=== PATIENT | male | born 1960 | race Caucasian/White ===

== ENCOUNTER → 2020-04-27 13:59 | Outpatient (BNVA) | payer MEDICARE, SELFPAY | PROVIDERS: PCP Internal Medicine; Visit Provider Internal Medicine | DX: J44.9 Chronic obstructive pulmonary disease, unspecified (principal); F17.200 Nicotine dependence, unspecified, uncomplicated; R09.02 Hypoxemia | CPT/HCPCS: 99212 ==

== ENCOUNTER → 2020-06-30 13:39 | Outpatient (BNVA) | payer MEDICARE, SELFPAY | PROVIDERS: PCP Internal Medicine; Visit Provider Internal Medicine | DX: J44.9 Chronic obstructive pulmonary disease, unspecified (principal); R09.02 Hypoxemia; Z79.899 Other long term (current) drug therapy; Z99.81 Dependence on supplemental oxygen; Z87.891 Personal history of nicotine dependence | CPT/HCPCS: 99212 ==

== ENCOUNTER → 2020-07-18 13:12 | Outpatient (BNVA) | payer MEDICARE, SELFPAY | PROVIDERS: PCP Internal Medicine; Visit Provider Internal Medicine Cardiovascular Disease | DX: Z13.89 Encounter for screening for other disorder (principal) | CPT/HCPCS: 99212 ==

== ENCOUNTER 2020-08-22 13:13 | Outpatient (REF) | payer MEDICARE, SELFPAY ==
--- NOTE | ~2020-08-22 | CT_ITS ---
EXAMINATION: CT CHEST SCREENING CLINICAL INFORMATION: Lung cancer screening COMPARISON: Previous chest CT scans most recent June 2019 TECHNIQUE: Multidetector volumetric CT imaging of the chest is performed without contrast using low dose technique. Additional 2D coronal and sagittal reformatted images and axial 3D maximum intensity projection (MIP) images are generated on the CT workstation. This CT examination was performed using dose optimization techniques as appropriate, variously including the following: *Automated exposure control *Adjustment of mA and/or kV according to patient size (this includes techniques or standardized protocols for targeted exams where dose is matched to indication/reason for exam; i.e. extremities or head) *Use of iterative reconstruction technique DLP: 96 mGy-cm FINDINGS: LUNGS: There is a 2 mm superior segment right lower lobe nodule axial image 190 series 5 that is stable. The lungs are otherwise clear. No new pulmonary nodule is seen. No endobronchial or endotracheal lesion is seen. MEDIASTINUM: There is a small pericardial effusion that is stable. The heart is upper normal in size. There is coronary artery calcification. The thoracic aorta is normal in caliber. There are small mediastinal lymph nodes that are stable. PLEURA: There is no pleural effusion. No pleural mass or thickening. AXILLA: No lymphadenopathy. UPPER ABDOMEN: Unremarkable OSSEOUS STRUCTURES: There are degenerative changes of the spine. CT/CT lung screening IMPRESSION: Stable small right lower lobe pulmonary nodule. Upper normal-size heart. Coronary artery calcification and small pericardial effusion. ASSESSMENT: Lung-RADS category 2: Benign RECOMMENDATION: Annual low-dose chest CT follow-up recommended.
== END 2020-08-22 13:14 | disposition home or self-care (01) ==
LOC: HO.CT 13:13
PROVIDERS: Visit Provider Surgery
DX: Z12.2 Encounter for screening for malignant neoplasm of respiratory organs (principal); F17.210 Nicotine dependence, cigarettes, uncomplicated
CPT/HCPCS: 71271

== ENCOUNTER → 2020-10-03 13:37 | Outpatient (BNVA) | payer MEDICARE, SELFPAY | PROVIDERS: PCP Internal Medicine; Visit Provider Internal Medicine | DX: J43.1 Panlobular emphysema (principal); F17.200 Nicotine dependence, unspecified, uncomplicated; Z71.6 Tobacco abuse counseling; Z79.899 Other long term (current) drug therapy | CPT/HCPCS: 99212 ==

== ENCOUNTER → 2020-10-12 13:06 | Outpatient (BNVA) | payer MEDICARE, SELFPAY | PROVIDERS: PCP Internal Medicine; Referring Provider Internal Medicine; Visit Provider Internal Medicine Cardiovascular Disease | DX: I50.32 Chronic diastolic (congestive) heart failure (principal); I10 Essential (primary) hypertension | CPT/HCPCS: 93005; 99212 ==

== ENCOUNTER 2020-11-03 13:33 | Outpatient (REF) | payer MEDICARE, SELFPAY ==
--- NOTE | ~2020-11-03 | MR_ITS ---
MR LUMBAR SPINE WITHOUT AND WITH IV CONTRAST CLINICAL INFORMATION: Lumbar stenosis. History of lumbar decompression. COMPARISON: Lumbar spine MRI 11/22/2017. TECHNIQUE: MRI of the lumbar spine was obtained using routine sequences with and without contrast. Intravenous contrast: Gadavist 100 mL FINDINGS: There are 5 nonrib-bearing lumbar-type vertebral bodies. There is grade 1 retrolisthesis of L1 on L2 and L3 on L4, both unchanged. 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 There is enhancement and T2 signal change involving the L4 and L5 vertebral bodies as well as the L4-L5 intervertebral disc with associated with paravertebral soft tissue swelling, highly concerning for the presence of osteomyelitis discitis. Possible early left-sided septic facet arthritis at L4-L5 as well. There are a few very small peripherally enhancing collections within the right and left psoas muscle measuring 9 mm, concerning for small developing abscesses. There is some enhancing epidural phlegmon anteriorly extending into the left and right L4-L5 neural foramina inseparable from the exiting L4 nerve roots. Conus terminates at the L1 level. Enlarged retroperitoneal lymph nodes are nonspecific. L1-L2: There are left hemilaminectomy and microdiscectomy changes. There is a persistent superiorly and inferiorly migrating central disc extrusion that results in unchanged moderate to severe central canal stenosis and mass effect on the traversing nerve roots bilaterally. L2-L3: Left hemilaminectomy and microdiscectomy changes. Diffuse disc osteophyte and bilateral facet arthropathy. Stable moderate central canal stenosis and bilateral subarticular zone stenosis with mass effect on the traversing L3 nerve roots bilaterally. Stable mild to moderate bilateral foraminal stenosis. L3-L4: There is a diffuse annular disc bulge and there is severe bilateral facet arthropathy and ligamentum flavum thickening. Findings in concert result in stable severe central canal stenosis and moderate to severe bilateral foraminal stenosis with mass effect on the exiting L3 nerve roots bilaterally. L4-L5: Diffuse disc osteophyte complex, advanced bilateral facet arthropathy, and enhancing phlegmon result in severe central canal stenosis that is similar to the previous study. Disc osteophyte and facet arthropathy result in worsening severe bilateral foraminal stenosis with mass effect on the exiting L4 nerve roots bilaterally. L5-S1: Diffuse disc osteophyte complex and bilateral facet arthropathy. No central canal stenosis. Mild to moderate bilateral foraminal stenosis. MR/MR lumbar spine wo/w con IMPRESSION: - Imaging findings concerning for the presence of osteomyelitis discitis at L4-L5 with associated paravertebral soft tissue swelling. There are a few very small peripherally enhancing collections within the right and left psoas muscle measuring 9 mm, concerning for small developing paravertebral abscesses. There is some enhancing epidural phlegmon anteriorly extending into the left and right L4-L5 neural foramina inseparable from the exiting L4 nerve roots. Possible early left-sided septic facet arthritis at L4-L5 as well. - At L4-L5, advanced multifactorial degenerative changes and mild enhancing anterior epidural phlegmon result in similar severe central canal stenosis. Worsening severe bilateral foraminal stenosis at this level with compression of the exiting L4 nerve roots bilaterally. - At L3-L4, advanced multifactorial degenerative changes result in stable severe central canal stenosis and moderate to severe bilateral foraminal stenosis with mass effect on the exiting L3 nerve roots bilaterally. - At L2-L3, there are left hemilaminectomy and microdiscectomy changes and spondylitic changes result in stable moderate central canal stenosis and bilateral subarticular zone stenosis with mass effect on the traversing L3 nerve roots bilaterally. Stable mild to moderate bilateral foraminal stenosis. - At L1-L2, there are left hemilaminectomy and microdiscectomy changes and there is a stable appearing superiorly and inferiorly migrating central disc extrusion that results in unchanged moderate to severe central canal stenosis and mass effect on the traversing nerve roots bilaterally. - Enlarged retroperitoneal lymph nodes are nonspecific. Covering provider paged with these findings at 5:25 PM on 11/06/2020.
[2020-11-03 14:10] LABS: MANUAL DIFF FLAG NO
[2020-11-03 14:12] LABS: Basophils Percent Auto 0.5 % (0-2); Eosinophils Absolute Auto 0.1 X10*3/uL (0.0-0.4); Eosinophils Percent Auto 0.7 % (0-4); Hemoglobin 12.3 g/dl (14.0-18.0); Imm Gran Abs Auto 0.03 X10*3/uL (0.00-0.03); Imm Gran Pct Auto 0.4 % (0.0-0.4); Lymphocytes Absolute Auto 0.9 X10*3/uL (1.2-4.9); Lymphocytes Percent Auto 10.7 % (20-40); Mean Corpuscular HGB Conc 30.8 g/dl (31.0-36.0); Mean Corpuscular Hemoglobin 28.1 pg (27.0-33.0); Mean Corpuscular Volume 91.3 fL (80-98); Mean Platelet Volume 10.2 fL (9.4-12.4); Neutrophils Absolute Auto 6.2 X10*3/uL (2.0-8.3); Neutrophils Percent Auto 75.7 % (45-73); Platelet Count 197 X10*3/uL (160-400); Red Blood Count 4.38 X10*6/uL (4.60-5.80); Red Cell Distribution Width 14.6 % (11.0-16.0); White Blood Count 8.2 X10*3/uL (4.8-10.8)
[2020-11-03 14:32] LABS: Anion Gap 13 (12-20); Blood Urea Nitrogen 12 mg/dL (9-16); Calcium 8.8 mg/dL (8.4-10.2); Carbon Dioxide 31 mmol/L (22-29); Chloride 94 mmol/L (96-108); Estimated Glomerular Filt Rate > 60; Potassium 5.1 mmol/L (3.3-5.1); Sodium 133 mmol/L (135-145)
[2020-11-03 14:33] LABS: Estimated Average Glucose 146 mg/dL; Hemoglobin A1c % 6.7 %
[2020-11-03 14:37] LABS: Alanine Aminotransferase < 6 U/L (0-40); Albumin Level 3.2 g/dL (3.5-5.0); Alkaline Phosphatase 62 U/L (39-117); Anion Gap 13 (12-20); Aspartate Amino Transferase 14 U/L (5-37); Blood Urea Nitrogen 12 mg/dL (9-16); Calcium 9.1 mg/dL (8.4-10.2); Carbon Dioxide 32 mmol/L (22-29); Chloride 93 mmol/L (96-108); Cholesterol 105 mg/dL; Estimated Glomerular Filt Rate > 60; Glucose Random 142 mg/dL (60-115); HDL Cholesterol 23 mg/dL; LDL Cholesterol Calculated 67 mg/dl; Potassium 5.1 mmol/L (3.3-5.1); Sodium 133 mmol/L (135-145); Total Protein 6.9 g/dL (6.5-8.0); Triglycerides 77 mg/dL
[2020-11-03 14:39] LABS: B Type Natriuretic Peptide 636 pg/mL (<100)
[2020-11-03 14:53] LABS: Glucose Urine UA NEG (NEG); Leukocyte Esterase Urine NEG (NEG); Nitrite Urine NEG (NEG); PH 6.5 (5.0-8.0); Specific Gravity - Urine 1.015 (1.005-1.025); Urine Blood NEG (NEG); Urine Ketones 5 MG/DL (NEG); Urine Protein 2+ MG/DL (NEG-TRACE)
[2020-11-03 14:54] LABS: Appearance Urine CLOUDY; Color Urine YELLOW
[2020-11-03 14:54] LABS: Free T4 (Free Thyroxine) 1.35 ng/dL (0.71-1.85); Thyroid Stimulating Hormone 0.75 uIU/mL (0.32-4.0)
[2020-11-03 15:08] LABS: Squamous Epithelial Cell Urine 2+ /LPF
[2020-11-03 15:24] LABS: Prostate Specific Antigen Scr 0.11 ng/mL (<0.05-4.0)
[2020-11-03 15:30] LABS: Folate 10.1 ng/mL (> or = 4.0); Vitamin B12 517 pg/mL (200-900)
[2020-11-03 16:38] LABS: Microalbum/Creatinine Ratio Ur 643.9 ug/mg cr
== END 2020-11-03 13:34 | disposition home or self-care (01) ==
LOC: HO.MRI 13:33
PROVIDERS: Internal Medicine; Visit Provider Neurological Surgery
DX: M48.061 Spinal stenosis, lumbar region without neurogenic claudication (principal); I10 Essential (primary) hypertension; E11.65 Type 2 diabetes mellitus with hyperglycemia; N40.0 Benign prostatic hyperplasia without lower urinary tract symptoms; I50.32 Chronic diastolic (congestive) heart failure; E78.00 Pure hypercholesterolemia, unspecified
CPT/HCPCS: 36415; 72158; 80051; 80053; 80061; 81001; 82043; 82310; 82565; 82607; 82746; 83036; 83880; 84153; 84439; 84443; 84520; 85025; A9585

== ENCOUNTER → 2021-01-26 13:35 | Outpatient (BNVA) | payer MEDICARE, SELFPAY | PROVIDERS: PCP Internal Medicine; Visit Provider Internal Medicine | DX: J43.1 Panlobular emphysema (principal); R09.02 Hypoxemia; Z72.0 Tobacco use | CPT/HCPCS: 99212 ==

== ENCOUNTER → 2021-02-01 13:56 | Outpatient (BNVA) | payer MEDICARE, SELFPAY | PROVIDERS: Referring Provider Internal Medicine; Visit Provider Surgery | DX: K21.9 Gastro-esophageal reflux disease without esophagitis (principal); E11.65 Type 2 diabetes mellitus with hyperglycemia; I10 Essential (primary) hypertension; E78.00 Pure hypercholesterolemia, unspecified; Z87.891 Personal history of nicotine dependence; Z88.8 Allergy status to other drugs, medicaments and biological substances; Z79.84 Long term (current) use of oral hypoglycemic drugs; Z79.899 Other long term (current) drug therapy | CPT/HCPCS: 99202 ==

== ENCOUNTER 2021-03-02 13:16 | Outpatient (REF) | payer MEDICARE, SELFPAY ==
[2021-03-02 13:36] LABS: MANUAL DIFF FLAG NO
[2021-03-02 14:23] LABS: Basophils Percent Auto 0.6 % (0-2); Eosinophils Absolute Auto 0.3 X10*3/uL (0.0-0.4); Eosinophils Percent Auto 4.6 % (0-4); Hematocrit 41.7 % (42-52); Hemoglobin 13.2 g/dl (14.0-18.0); Imm Gran Abs Auto 0.02 X10*3/uL (0.00-0.03); Imm Gran Pct Auto 0.3 % (0.0-0.4); Immature Retic Fraction 19.7 % (2.3-13.4); Lymphocytes Absolute Auto 1.5 X10*3/uL (1.2-4.9); Lymphocytes Percent Auto 20.2 % (20-40); Mean Corpuscular HGB Conc 31.7 g/dl (31.0-36.0); Mean Corpuscular Hemoglobin 28.6 pg (27.0-33.0); Mean Corpuscular Volume 90.5 fL (80-98); Mean Platelet Volume 11.3 fL (9.4-12.4); Monocytes Absolute Auto 1.1 X10*3/uL (0.1-1.2); Monocytes Percent Auto 15.6 % (2-11); Neutrophils Absolute Auto 4.2 X10*3/uL (2.0-8.3); Neutrophils Percent Auto 58.7 % (45-73); Platelet Count 180 X10*3/uL (160-400); Red Blood Count 4.61 X10*6/uL (4.60-5.80); Red Cell Distribution Width 15.9 % (11.0-16.0); Reticulocyte Percent 1.7 % (0.5-1.8); Reticulocytes Absolute 0.079 X10*6/uL (0.026-0.095); White Blood Count 7.2 X10*3/uL (4.8-10.8)
[2021-03-02 14:30] LABS: Appearance Urine CLEAR; Color Urine YELLOW; Glucose Urine UA NEG (NEG); Leukocyte Esterase Urine NEG (NEG); Nitrite Urine NEG (NEG); Specific Gravity - Urine <= 1.005 (1.005-1.025); Urine Blood NEG (NEG); Urine Ketones NEG (NEG); Urine Protein NEG (NEG-TRACE)
[2021-03-02 14:41] LABS: INTERNATIONAL NORM RATIO 1.4 (0.9-1.1); Prothrombin Time 16.2 SEC (9.9-13.0)
[2021-03-02 14:50] LABS: Creatinine Urine 26.66 mg/dL
[2021-03-02 14:50] LABS: Alanine Aminotransferase 6 U/L (0-40); Albumin Level 4.1 g/dL (3.5-5.0); Alkaline Phosphatase 54 U/L (39-117); Anion Gap 13 (12-20); Aspartate Amino Transferase 17 U/L (5-37); Bilirubin Total 0.8 mg/dL (0.0-1.0); Blood Urea Nitrogen 15 mg/dL (9-16); Calcium 9.5 mg/dL (8.4-10.2); Carbon Dioxide 33 mmol/L (22-29); Chloride 98 mmol/L (96-108); Estimated Glomerular Filt Rate > 60; Glucose Random 101 mg/dL (60-115); Iron 48 mcg/dL (45-160); Percent Iron Saturation 13 % (15-50); Potassium 4.9 mmol/L (3.3-5.1); Sodium 139 mmol/L (135-145); Total Iron Binding Capacity 375 mcg/dL (228-428); Total Protein 7.6 g/dL (6.5-8.0); Unsaturated Iron Binding 327 ug/dL
[2021-03-02 14:51] LABS: B Type Natriuretic Peptide 569 pg/mL (<100)
[2021-03-02 15:02] LABS: Ferritin 40 ng/mL (20-250); Free T4 (Free Thyroxine) 1.11 ng/dL (0.71-1.85); Thyroid Stimulating Hormone 0.74 uIU/mL (0.32-4.0)
[2021-03-02 15:11] LABS: Mucus Urine 1+ /LPF; RBC Urine 0-2 /HPF (0); Squamous Epithelial Cell Urine TRACE /LPF; WBC Urine 0 /HPF (0-4)
[2021-03-02 15:21] LABS: Folate 9.8 ng/mL (> or = 4.0); Vitamin B12 457 pg/mL (200-900)
== END 2021-03-02 13:17 | disposition home or self-care (01) ==
LOC: HO.LAB 13:16
PROVIDERS: Absent Provider Internal Medicine; PCP Internal Medicine; Visit Provider Internal Medicine
DX: E11.65 Type 2 diabetes mellitus with hyperglycemia (principal); I50.32 Chronic diastolic (congestive) heart failure; N40.0 Benign prostatic hyperplasia without lower urinary tract symptoms; I34.0 Nonrheumatic mitral (valve) insufficiency
CPT/HCPCS: 36415; 80053; 81001; 82607; 82728; 82746; 83540; 83880; 84439; 84443; 85025; 85045; 85610

== ENCOUNTER → 2021-06-07 13:57 | Outpatient (BNVA) | payer MEDICARE, SELFPAY | PROVIDERS: PCP Internal Medicine; Visit Provider Internal Medicine | DX: J43.1 Panlobular emphysema (principal); F17.210 Nicotine dependence, cigarettes, uncomplicated; Z86.711 Personal history of pulmonary embolism | CPT/HCPCS: 99212 ==

== ENCOUNTER 2021-06-13 13:50 | Outpatient (REF) | payer MEDICARE, OTHER, SELFPAY ==
--- NOTE | 2021-06-13 15:36 | PFT_ITS ---
FLOWS: FEV1 52% of predicted at 1.69 L. FVC 65% of predicted at 2.76 L. FEV1 to FVC ratio of 0.61. No bronchodilator response. LUNG VOLUMES: Total lung capacity 94% of predicted at 6.02 L. Residual volume 150% of predicted at 3.16 L. Slow vital capacity 66% of predicted at 2.86 L. Expiratory reserve volume 64% of predicted at 0.77 L. Diffusion capacity is moderately decreased, diffusion capacity adjust to being mildly decreased after correction for alveolar ventilation. IMPRESSION: Moderate obstructive ventilatory defect with no bronchodilator response. Increased residual volume suggests air trapping. Decreased diffusion capacity suggests emphysema. MD TAD Cordon/MODL / [id number]
== END 2021-06-13 13:51 | disposition home or self-care (01) ==
LOC: HO.RESP 13:50
PROVIDERS: PCP Internal Medicine; Visit Provider Internal Medicine
DX: Z01.818 Encounter for other preprocedural examination (principal); R09.02 Hypoxemia; J43.1 Panlobular emphysema; I50.32 Chronic diastolic (congestive) heart failure
CPT/HCPCS: 94060; 94727; 94729

== ENCOUNTER 2021-10-25 12:44 | Outpatient (RCR) | payer MEDICARE, SELFPAY | END 2022-01-19 08:44 | disposition home or self-care (01) | LOC: HO.WCC 12:44 | PROVIDERS: PCP Internal Medicine; Visit Provider Surgery | DX: E11.622 Type 2 diabetes mellitus with other skin ulcer (principal); L97.815 Non-pressure chronic ulcer of other part of right lower leg with muscle involvement without evidence of necrosis; E11.51 Type 2 diabetes mellitus with diabetic peripheral angiopathy without gangrene; E11.42 Type 2 diabetes mellitus with diabetic polyneuropathy; F17.200 Nicotine dependence, unspecified, uncomplicated; Z79.01 Long term (current) use of anticoagulants; Z86.718 Personal history of other venous thrombosis and embolism | CPT/HCPCS: 11042; 11043; 11045; 11046; 97597; 99212 ==

== ENCOUNTER 2022-02-27 14:03 | Outpatient (REF) | payer MEDICARE, SELFPAY ==
[2022-02-27 16:31] LABS: MANUAL DIFF FLAG NO
[2022-02-27 16:35] LABS: Basophils Percent Auto 0.5 % (0-2); Eosinophils Absolute Auto 0.4 X10*3/uL (0.0-0.4); Eosinophils Percent Auto 4.4 % (0-4); Hematocrit 32.4 % (42.0-52.0); Hemoglobin 9.5 g/dl (14.0-18.0); Imm Gran Abs Auto 0.02 X10*3/uL (0.00-0.03); Imm Gran Pct Auto 0.2 % (0.0-0.4); Lymphocytes Absolute Auto 1.6 X10*3/uL (1.2-4.9); Lymphocytes Percent Auto 19.9 % (20-40); Mean Corpuscular HGB Conc 29.3 g/dl (31.0-36.0); Mean Corpuscular Hemoglobin 26.2 pg (27.0-33.0); Mean Corpuscular Volume 89.5 fL (80.0-98.0); Mean Platelet Volume 11.1 fL (9.4-12.4); Monocytes Absolute Auto 1.3 X10*3/uL (0.1-1.2); Monocytes Percent Auto 16.3 % (2-11); NRBC Pct Auto 0.2 /100WBC (0.0-0.2); Neutrophils Absolute Auto 4.8 x10*3/uL (2.0-8.3); Neutrophils Percent Auto 58.7 % (45-73); Platelet Count 238 X10*3/uL (160-400); Red Blood Count 3.62 X10*6/uL (4.60-5.80); Red Cell Distribution Width 18.1 % (11.0-16.0); White Blood Count 8.1 X10*3/uL (4.8-10.8)
[2022-02-27 16:43] LABS: Estimated Average Glucose 128 mg/dL; Hemoglobin A1c % 6.1 %
[2022-02-27 16:47] LABS: Alanine Aminotransferase 51 U/L (0-40); Albumin Level 3.6 g/dL (3.5-5.0); Alkaline Phosphatase 60 U/L (39-117); Anion Gap 16 (12-20); Aspartate Amino Transferase 137 U/L (5-37); Bilirubin Direct 0.9 mg/dL (0.0-0.5); Bilirubin Total 1.2 mg/dL (0.0-1.0); Blood Urea Nitrogen 30 mg/dL (9-16); Calcium 8.9 mg/dL (8.4-10.2); Carbon Dioxide 27 mmol/L (22-29); Chloride 104 mmol/L (96-108); Cholesterol 114 mg/dL; Estimated Glomerular Filt Rate > 60; Glucose Random 115 mg/dL (60-115); HDL Cholesterol 22 mg/dL; LDL Cholesterol Calculated 81 mg/dl; Potassium 5.4 mmol/L (3.3-5.1); Sodium 142 mmol/L (135-145); Total Protein 7.7 g/dL (6.5-8.0); Triglycerides 56 mg/dL
[2022-02-27 16:56] LABS: B Type Natriuretic Peptide 1057 pg/mL (<100)
[2022-02-27 17:04] LABS: Creatinine Urine 220.48 mg/dL
[2022-02-27 17:06] LABS: Thyroid Stimulating Hormone 3.94 uIU/mL (0.32-4.0)
[2022-02-27 17:14] LABS: Free T4 (Free Thyroxine) 1.03 ng/dL (0.71-1.85); Prostate Specific Antigen Scr 0.15 ng/mL (<0.05-4.0)
[2022-02-27 17:17] LABS: Folate 13.9 ng/mL (> or = 4.0); Vitamin B12 1586 pg/mL (200-900)
[2022-02-27 17:29] LABS: Microalbum/Creatinine Ratio Ur 1159.2 ug/mg cr
== END 2022-02-27 14:04 | disposition home or self-care (01) ==
LOC: HO.HMGCLDS 14:03
PROVIDERS: Absent Provider Nurse Practitioner Family; PCP Internal Medicine; Visit Provider Internal Medicine
DX: Z12.5 Encounter for screening for malignant neoplasm of prostate (principal); K74.60 Unspecified cirrhosis of liver; E78.00 Pure hypercholesterolemia, unspecified; E11.65 Type 2 diabetes mellitus with hyperglycemia; K21.9 Gastro-esophageal reflux disease without esophagitis; I50.32 Chronic diastolic (congestive) heart failure
CPT/HCPCS: 36415; 80053; 80061; 80076; 82043; 82248; 82607; 82746; 83036; 83880; 84153; 84439; 84443; 85025

== ENCOUNTER 2022-02-28 11:29 | Outpatient (REF) | payer MEDICARE, SELFPAY ==
[2022-02-28 12:18] LABS: Ammonia 55 umol/L (13-55)
== END 2022-02-28 11:30 | disposition home or self-care (01) ==
LOC: HO.LAB 11:29
PROVIDERS: Nurse Practitioner Family; PCP Internal Medicine; Visit Provider Internal Medicine
DX: K74.60 Unspecified cirrhosis of liver (principal)
CPT/HCPCS: 36415; 82140

== ENCOUNTER 2022-02-28 15:25 | Inpatient (IN) | payer MEDICARE, OTHER, SELFPAY ==
[2022-02-28] VITALS (11 sets, daily range): BP systolic 92–114; BP diastolic 60–84; PULSE 104–137; RESP 15–24; TEMP 36.1–36.6; O2SAT 87–100; BMI 37.2
--- NOTE | ~2022-02-28 | CT_ITS ---
EXAMINATION: CT ANGIOGRAM OF THE CHEST WITH AND WITHOUT CONTRAST (CT PULMONARY ANGIOGRAM FOR PE) CT ABDOMEN AND PELVIS WITH CONTRAST CLINICAL INFORMATION: Reason for Exam sob, hypoxia abdominal distention and weakness COMPARISON: Chest CT 08/22/2020, CT abdomen and pelvis 02/13/2008 TECHNIQUE: Prior to contrast administration, noncontrast localization images were obtained. Subsequently, multidetector volumetric imaging was performed from the thoracic inlet to the pubic symphysis following the administration of 85 mL Omnipaque 350 intravenous contrast. This was followed by multidetector acquisition of the abdomen and pelvis. No contrast reaction reported Sagittal, coronal, and MIP oblique sagittal reformatted images were obtained on the CT workstation, uploaded to PACS, and reviewed. This CT examination was performed using dose optimization techniques as appropriate, variously including the following: *Automated exposure control *Adjustment of mA and/or kV according to patient size (this includes techniques or standardized protocols for targeted exams where dose is matched to indication/reason for exam; i.e. extremities or head) *Use of iterative reconstruction technique Total exam dose-length product 606 mGy-cm FINDINGS: CHEST: Quality of study/contrast bolus: Suboptimal. Pulmonary arteries: No central pulmonary embolus. Central pulmonary trunk is dilated measuring approximate 3.4 cm in diameter. Limited assessment for segmental pulmonary emboli due to suboptimal contrast opacification of distal branches and motion artifact. No large proximal segmental pulmonary embolus. Thoracic aorta: No aneurysm or dissection. Lungs: Assessment somewhat limited due to respiratory motion artifact. Mild bibasilar independent atelectasis bilaterally. No airspace consolidation. No appreciable pulmonary nodule. Airways:Central airways appear clear. Pleura and pericardium: Small to moderate-sized left pleural effusion. No right pleural effusion. Small to moderate-sized pericardial effusion. Heart and vascular structures: Cardiomegaly with biatrial enlargement. Mild right coronary calcifications. Lymph nodes: No mediastinal, hilar, or axillary lymphadenopathy. Chest Wall: No chest wall mass. ABDOMEN/PELVIS: Liver: Reflux of contrast into the distended upper abdominal IVC and hepatic veins suggesting elevated right heart pressure/right heart dysfunction. Mild hepatic hypoattenuation is seen mild steatosis. Approximately 1.9 cm hypodense lesion in the inferior right liver lobe, possibly a cyst, but indeterminate. No other liver lesion. Plate Gallbladder and bile ducts:No calcified gallstones or gross gallbladder wall thickening. No biliary ductal dilation. Pancreas: No pancreatic lesion, ductal dilation, or peripancreatic inflammatory change. Spleen: Normal size. No splenic lesion. Adrenal Glands: Slightly thickened appearing left adrenal gland. Normal right adrenal gland. Kidneys and Ureters: Symmetric nephrograms. No hydronephrosis. Subcentimeter hypodense right lower pole renal lesion and left upper pole renal lesion, too small to characterize, likely small cysts. Vasculature:Normal caliber abdominal aorta. Moderate vascular calcifications. Distended IVC. Lymph nodes:Subcentimeter retroperitoneal periaortic lymph nodes, not enlarged by size criteria. Prominent left inguinal lymph node measuring up to 1.2 cm in short axis, nonspecific. Gastrointestinal Tract: No dilated bowel loops or bowel wall thickening. The appendix is unremarkable. Peritoneum:Small volume ascites. No intra-abdominal free air. Abdominal wall:Diffuse body wall edema/anasarca. Mild rectus diastases. Right-sided rectus sheath hematoma measuring approximately 8.4 x 7 x 9.7 cm in size. Bladder: Decompressed with Huizar catheter in place. Pelvic Viscera: Unremarkable. Bones: No acute fracture or suspicious osseous lesion. Multilevel degenerative disc disease throughout the thoracolumbar spine. Vertebral body hemangiomas at L3 and T12. CT/CT abdomen pelvis w IV con IMPRESSION: 1. No central pulmonary embolus or large segmental pulmonary embolus. Assessment for segmental pulmonary emboli is significantly limited due to motion artifact and suboptimal contrast opacification of more distal branches. 2. Small to moderate-sized left pleural effusion and mild atelectasis bilaterally. 3. Small to moderate-sized pericardial effusion. 4. Cardiomegaly with atrial enlargement. Reflux of contrast into the distended IVC and hepatic veins suggesting elevated right heart pressure/right heart dysfunction. Correlate clinically. 5. Mild hepatic steatosis. 6. Right rectus sheath hematoma measuring 8.4 x 7 x 9.7 cm in size. 7. Diffuse body wall edema/anasarca and small volume ascites. 8. 1.9 cm hypodense lesion in the inferior right liver lobe, indeterminate on this exam. VTE: Negative, with significant limitation as above
--- NOTE | ~2022-02-28 | XR_ITS ---
EXAMINATION: XR CHEST CLINICAL INFORMATION: Shortness of breath COMPARISON: Comparison is made to evaluation manager film from CT dated 08/22/2020 TECHNIQUE: Frontal view of the chest was obtained. FINDINGS: This exam is limited from technique. I cannot exclude areas of infiltrate in the lungs but this appearance may be partially due to the radiographic technique. The cardiac silhouette is prominent. Again this could be due to technique. This is an AP study. No obvious failure. XR/XR chest 1V IMPRESSION: Limited exam due to technique. Areas of infiltrate cannot be excluded though appearance may be due to the radiographic technique. Recommend PA and lateral films when the patient is able.
--- NOTE | ~2022-02-28 | CT_ITS ---
EXAMINATION: CT HEAD WITHOUT CONTRAST CLINICAL INFORMATION: slow to response ? ams, weakness, hypoxia COMPARISON: CT head 09/03/2018 TECHNIQUE: Contiguous axial imaging was performed from the skull base to vertex without intravenous administration of contrast. Coronal and sagittal reformatted images are performed at the CT scanner. [This CT examination was performed using dose optimization techniques as appropriate, variously including the following: *Automated exposure control *Adjustment of mA and/or kV according to patient size (this includes techniques or standardized protocols for targeted exams where dose is matched to indication/reason for exam; i.e. extremities or head) *Use of iterative reconstruction technique] DLP: 746 mGy-cm. FINDINGS: There is no evidence of acute intracranial hemorrhage or territorial infarction. No abnormal mass-effect or midline shift is seen. Owens to white matter differentiation is well preserved. No extra-axial fluid collections are identified. The ventricles are normal in size. There is no abnormal attenuation within the brain parenchyma. There is no osseous abnormality. The mastoid air cells and visualized portions of the paranasal sinuses are well-aerated. CT/CT head/brain wo IV con IMPRESSION: No acute intracranial pathology.
--- NOTE | 2022-02-28 14:27 | ECG_ITS ---
Test Reason : SOB Blood Pressure : / mmHG Vent. Rate : 132 BPM Atrial Rate : 000 BPM P-R Int : 000 ms QRS Dur : 134 ms QT Int : 326 ms P-R-T Axes : 000 080 -06 degrees QTc Int : 483 ms Wide QRS tachycardia Right bundle branch block Septal infarct , age undetermined Abnormal ECG When compared with ECG of 28-FEB-2022 17:23, Wide QRS tachycardia has replaced Sinus tachycardia Referred By: Tae Delatorre Electronically Signed By:MARCEL RIZVI
--- NOTE | 2022-02-28 15:40 | ECG_ITS ---
Test Reason : SOB Blood Pressure : / mmHG Vent. Rate : 131 BPM Atrial Rate : 131 BPM P-R Int : 152 ms QRS Dur : 132 ms QT Int : 326 ms P-R-T Axes : 000 088 -11 degrees QTc Int : 481 ms Sinus tachycardia Right bundle branch block Septal infarct , age undetermined Abnormal ECG When compared with ECG of 31-AUG-2018 08:17, Septal infarct is now Present Referred By: Tae Delatorre Electronically Signed By:MARCEL RIZVI
--- NOTE | 2022-02-28 15:42 | ED_ITS ---
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 Patient tells me he is feeling short of breath both at rest and with exertion. Patient does not use oxygen at home. According to EMS they found him in the mid 80s upon arrival therefore they placed him on 2 L nasal cannula with improvement in oxygen saturation to mid 90s. Patient appears tired, and slow to respond to questions. He denies fevers, chills, chest pain, nausea, vomiting, abdominal pain. Upon chart review patient noted to be anticoagulated on apixaban Related Data Home Medications Medication Instructions Recorded Confirmed albuterol sulfate 90 mcg/actuation 2 puff inhalation Q6H PRN 02/26/20 02/28/22 aerosol inhaler (ProAir HFA) Shortness Of Breath cholecalciferol (vitamin D3) 25 25 mcg PO DAILY 02/26/20 02/28/22 mcg (1,000 unit) tablet ferrous sulfate 325 mg (65 mg 325 mg PO DAILY 10/31/21 02/28/22 iron) tablet furosemide 40 mg tablet (Lasix) 80 mg PO DAILY 02/23/22 02/28/22 metoprolol tartrate 25 mg tablet 37.5 mg PO BID 02/23/22 02/28/22 lisinopril 2.5 mg tablet 1 tab PO DAILY 02/28/22 02/28/22 pantoprazole 40 mg tablet,delayed 1 tab PO DAILY 02/28/22 02/28/22 release Previous Rx's Medication Instructions Recorded budesonide-formoterol HFA 160 2 puff inhalation BID #3 ea 05/26/20 mcg-4.5 mcg/actuation aerosol inhaler (Symbicort) michael.stocking,knee,reg,xlrg #12 ea 09/27/20 apixaban 5 mg tablet (Eliquis) 5 mg PO BID #180 tabs 10/21/20 metformin 850 mg tablet 850 mg PO BID #180 tabs 04/14/21 fluticasone propionate 50 1 spray intranasal DAILY 30 days 07/21/21 mcg/actuation nasal #16 grams spray,suspension (Flonase Allergy Relief) duloxetine 60 mg capsule,delayed 60 mg PO DAILY #90 caps 08/15/21 release gabapentin 600 mg tablet 600 mg PO BID #180 tabs 08/15/21 rosuvastatin 5 mg tablet 5 mg PO DAILY #90 tabs 08/15/21 DIABETIC SHOES #1 ea 12/08/21 tamsulosin 0.4 mg capsule 0.4 mg PO DAILY 90 days #90 caps 12/22/21 oxycodone-acetaminophen 5 mg-325 1 tab PO Q6H PRN pain #120 tabs 02/07/22 mg tablet (Percocet) lactulose 10 gram/15 mL oral 20 g (30 mL) PO TID PRN laxative 02/23/22 solution effect #946 mL nystatin 100,000 unit/gram topical 1 appl topical TID #60 grams 02/23/22 powder (Nystop) Allergies Allergy/AdvReac Type Severity Reaction Status Date / Time amlodipine Allergy Mild Unknown Verified 02/23/22 14:25 atorvastatin [Lipitor] Allergy Mild Unknown Verified 02/23/22 14:25 simvastatin Allergy Unknown cannot Verified 02/23/22 14:25 take due to amlodipine piperacillin [From ZOSYN] AdvReac Mild RASH Verified 02/23/22 14:25 tazobactam [From ZOSYN] AdvReac Mild RASH Verified 02/23/22 14:25 Review of Systems Review of Systems: Constitutional : No Weight loss, No Fever, No Chills, + Fatigue, + Malaise ENT/Mouth : No sore throat, No Rhinorrhea Eyes: No Eye Pain, No Swelling, No Redness Cardiovascular : No Chest Pain, + SOB, No Dyspnea on Exertion, No Orthopnea, No Edema, No Palpitations Respiratory : No Cough, No Sputum, No Wheezing Gastrointestinal : No Nausea, No Vomiting, No Diarrhea, No Constipation, No abdominal Pain, No Hematochezia, No Melena Genitourinary : No Dysuria, No Urinary Frequency, No Hematuria, Musculoskeletal : No joint pain, No Myalgias, No Joint Swelling Skin : No Skin Lesions, No rash Neuro : + Weakness, No Numbness, No Dizziness, No Headache Psych : No Anxiety/Panic, No Depression All other systems reviewed and are negative Yes all other systems are reviewed and are negative [facility], [facility] Past Medical History Attestation statement: The following information was validated with the patient. Source: old records reviewed and nursing notes reviewed Medical History BPH (benign prostatic hyperplasia) Carpal tunnel syndrome Chronic low back pain Cirrhosis Colon cancer screening Congestive heart failure COPD (chronic obstructive pulmonary disease) COVID-19 vaccine series completed Edema of both feet GERD (gastroesophageal reflux disease) History of pulmonary embolism History of torsion of testis Hypercholesterolemia Hypertension Hypoxemia Lung density on x-ray Peripheral vascular disease Tobacco abuse Type 2 diabetes mellitus with hyperglycemia Surgical History H/O colonoscopy History of excision of pilonidal cyst History of lumbar discectomy Hx of excision of mass Torsion, testicular Family History Family History Father Diabetes Hypertension CVD (cardiovascular disease) Mother Acute CVA (cerebrovascular accident) Stroke Sister Pulmonary embolism Sister Substance abuse Social History Social History Housing: Apartment Alcohol intake: never Patient Tobacco Use Status: Current someday Tobacco user Tobacco use type: Cigarette Cigarettes Per Day: 3 e-Cigarette/Vaping Use: Never Used Second Hand Smoke Exposure: No Advance Directives: No Advance Directives Information Provided: No service: No Current occupational status: disabled Cognitive needs: Yes Hearing needs: No Vision needs: No Physical Exam ED Vital Signs: Vital Signs - 24 hr 02/28/22 15:36 02/28/22 16:41 02/28/22 17:30 Temperature 98 F 97.9 F Pulse Rate 119 H 130 H Respiratory Rate 16 20 24 H Blood Pressure 109/80 114/84 Pulse Oximetry 98 88 L Oxygen Delivery Method Room Air Room Air Oxygen Flow Rate 4 Fraction of Inspired Oxygen 02/28/22 19:38 02/28/22 19:41 02/28/22 19:47 Temperature 97.0 F Pulse Rate 117 H 108 H Respiratory Rate 23 H 23 H 15 Blood Pressure 111/77 Pulse Oximetry Oxygen Delivery Method Oxygen Flow Rate Fraction of Inspired Oxygen 02/28/22 20:16 02/28/22 20:57 Temperature Pulse Rate Respiratory Rate 17 Blood Pressure Pulse Oximetry 100 Oxygen Delivery Method BiPAP Oxygen Flow Rate Fraction of Inspired Oxygen 35 BMI result Body Mass Index 37.2 Appearance: Alert.? Oriented X3.? No acute distress.? Patient is slow to respond to questions. Head: Normocephalic, atraumatic, no step-offs or deformities Eyes: Pupils equal, round and reactive to light.? ENT: Pharynx normal.? Neck: Normal inspection.? Neck supple.? CVS: Normal heart rate and rhythm.? Pulses normal.?+ systolic murmur Respiratory: No respiratory distress.? Breath sounds diminished bilaterally w/ wheezing throughout.? Abdomen: Soft and nontender.? However distended with normoactive bowel sounds. Skin: Skin warm and dry.? Normal skin color.? Normal skin turgor.? Extremities: 4+ nonpitting edema to bilateral lower extremities. Anasarca noted throughout? No calf ttp. Global weakness Neuro: Oriented X 3.? No motor deficit.? No sensory deficit. Patient arousable to verbal stimuli Course Reevaluation(s) Reevaluation #1: Patient now hypoxic at 87 88% on 4 L, will be placed on high-flow, respiratory called to the bedside an ABG will be obtained. Patient difficult stick therefore laboratory study still pending. Patient's pressure initially soft, at this time will obtain blood cultures and a lactic acid. According to nurse jay jay johnson reported that patient has been having periods of unresponsiveness at home, lethargy and somnolence. Patient becoming more and more lethargic however still controlling his own airway and reseponsive. Will continue to monitor informed Dr. Britton on this case. Time: 16:50 Reevaluation #2: Blood gas showing a resp acidosis PH 7.24 PCO2 63 PO2 331 HCO3 27, at this time patient will be placed on BiPAP. Time: 17:32 Reevaluation #3: Patient's CBC appears to be at baseline, chemistry with potassium noted to be elevated 6.3, no EKG changes however will give Lokelma 10 mg, insulin, D50, sodium bicarb, calcium gluconate, albuterol neb. BNP elevated 881 lasix ordered. Patient noted to have a slight SISI however will hold fluids due to patient's fluid overload status. Transaminases noted to be markedly elevated when compared to yesterday, CT of the abdomen and pelvis pending at this time. Patient's lactic acid noted to be 2.8 likely secondary to hypoxic respiratory failure, unlikely from sepsis. Urine pending, CT of head, abd and pelvis pendin carmelo Tollerating bipap well. Time: 18:13 Additional Reevaluation(s): Urine with infection ceftriaxone ordered. 2045 Spoke with nursing supervisor grounds who tells me that we do not have any beds in the intensive care unit. Patient is tolerating BiPAP well will trial him on high- flow to see if he tolerates that. Head CT with no acute findings. Pending CT of the chest, abdomen and pelvis. 2056 Lacic acid still elevated likley secondary to resp faliure 2119 CT of the head with no acute findings. CTA with no central pulmonary emboli or large segmental pulmonary embolus. Small to moderate size left pleural effusion and mild atelectasis bilaterally. Small to moderate size pericardial effusion. Cardiomegaly with arterial enlargement. Mild hepatic steatosis, right rectus sheath hematoma measuring 8.4 x 7 x 9.7 cm in size, I did ask patient if he fell he now tells me he thinks he fell however he does not recall when. 2124 Dr. Chen surgery recommends stopping apixaban due to hematoma, no other management needed at this time 2126 Tollerating high flow @ 30% 2150 Patient will be admitted to the hospitalist team for further intervention and tx. Dr. Sandoval Medical Decision Making [facility] Narrative Medical decision making narrative: 1546 61-year-old male presenting with weakness, malaise, fatigue and shortness of breath worsening over the past few weeks. Was sent in by his primary care provider. To note patient poor historian Physical exam significant for patient slow to respond to questions, global wea kness, diminished breath sounds throughout with wheezing, abdomen soft, nontender slightly distended. And 4+ nonpitting edema to bilateral lower extremities. Concerns for CHF. Will rule out PE, ACS, hepatic encephalopathy, cirrhosis pneumonia. I do not suspect COPD exacerbation. Unlikey DVT or arterial occlusion. Plan labs, urine, EKG, troponin, D-dimer, chest x-ray. Upon chart review it is noted that on 02/27/2022 patient was noted to have an elevated potassium at 5.4, patient was noted to have an ammonia of 55, his LFTs slightly higher than baseline. Patient was also noted to have a BNP of a 1057. B12 elevated at 1586 Will wait for today's laboratory studies prior to starting treatment as patient is currently stable. Medical Records Medical records reviewed: Yes I reviewed the patient's medical records. Lab Data Lab results reviewed: Yes I reviewed the patient's lab results. Result diagrams: 02/28/22 17:18 02/28/22 17:13 Labs: Lab Results 02/28/22 02/28/22 02/28/22 Range/Units 17:08 17:12 17:13 WBC (4.8-10.8) X10*3/uL RBC (4.60-5.80) X10*6/uL Hgb (14.0-18.0) g/dl Hct (42.0-52.0) % MCV (80.0-98.0) fL MCH (27.0-33.0) pg MCHC (31.0-36.0) g/dl RDW (11.0-16.0) % Plt Count (160-400) X10*3/uL MPV (9.4-12.4) fL Immature Gran % (Auto) (0.0-0.4) % Neut % (Auto) (45-73) % Lymph % (Auto) (20-40) % [place] % (Auto) (2-11) % Eos % (Auto) (0-4) % Baso % (Auto) (0-2) % Lymph # (Auto) (1.2-4.9) X10*3/uL [place] # (Auto) (0.1-1.2) X10*3/uL Eos # (Auto) (0.0-0.4) X10*3/uL Baso # (Auto) (0.0-0.2) X10*3/uL Abs Immat Gran (auto) (0.00-0.03) X10*3/uL Absolute Neuts (auto) (2.0-8.3) x10*3/uL Absolute Nucleated RBC (0.0-0.012) X10*3/uL Nucleated RBC % (auto) (0.0-0.2) /100WBC D-Dimer High Sensitivty 1313 NG/ML O2 Saturation 99.0 % ABG pH at Pt Temp 7.24 L (7.35-7.45) ABG pCO2 at Pt Temp 63 H* (32-45) mmHg ABG pO2 at Pt Temp 331 H (83-108) mmHg ABG HCO3 27 H (22-26) mmol/L ABG Base Excess (Actual) -0.6 mmol/L Sodium (135-145) mmol/L Potassium (3.3-5.1) mmol/L Chloride (96-108) mmol/L Carbon Dioxide (22-29) mmol/L Anion Gap (12-20) BUN (9-16) mg/dL Creatinine (0.5-1.4) mg/dL Estim Creat Clear Calc Estimated GFR Random Glucose (60-115) mg/dL Lactic Acid (0.5-2.0) mmol/L Lactic Acid F/U @ 2Hr (0.5-2.0) mmol/L Calcium (8.4-10.2) mg/dL Magnesium (1.6-2.6) mg/dL Total Bilirubin (0.0-1.0) mg/dL AST (5-37) U/L ALT (0-40) U/L Alkaline Phosphatase (39-117) U/L Ammonia (13-55) umol/L Troponin I High Sens (<3.5-35.0) ng/L B-Natriuretic Peptide (<100) pg/mL Total Protein (6.5-8.0) g/dL Albumin (3.5-5.0) g/dL Urine Color Urine Appearance Urine pH (5.0-9.0) Ur Specific [place] (1.005-1.025) Urine Protein (Neg-Trace) mg/dL Urine Glucose (UA) (Negative) mg/dL Urine Ketones (Negative) mg/dL Urine Blood (Negative) Urine Nitrite (Negative) Ur Leukocyte Esterase (Negative) Urine RBC (0-2) /HPF Urine WBC (0-5) /HPF Ur Squamous Epith Cells (0-2) /HPF Urine Bacteria (None Seen) Hyaline Casts (0-2) /LPF Granular Casts Urine Opiates Screen (Not Detect) Urine Fentanyl Screen (Not Detect) Ur Barbiturates Screen (Not Detect) Ur Phencyclidine Scrn (Not Detect) Ur Amphetamines Screen (Not Detect) U Benzodiazepines Scrn (Not Detect) Urine Cocaine Screen (Not Detect) U Marijuana (THC) Screen (Not Detect) COVID-19 (EWA) Negative (Negative) COVID-19 Clin Com See Note 02/28/22 02/28/22 02/28/22 Range/Units 17:13 17:13 17:13 WBC (4.8-10.8) X10*3/uL RBC (4.60-5.80) X10*6/uL Hgb (14.0-18.0) g/dl Hct (42.0-52.0) % MCV (80.0-98.0) fL MCH (27.0-33.0) pg MCHC (31.0-36.0) g/dl RDW (11.0-16.0) % Plt Count (160-400) X10*3/uL MPV (9.4-12.4) fL Immature Gran % (Auto) (0.0-0.4) % Neut % (Auto) (45-73) % Lymph % (Auto) (20-40) % [place] % (Auto) (2-11) % Eos % (Auto) (0-4) % Baso % (Auto) (0-2) % Lymph # (Auto) (1.2-4.9) X10*3/uL [place] # (Auto) (0.1-1.2) X10*3/uL Eos # (Auto) (0.0-0.4) X10*3/uL Baso # (Auto) (0.0-0.2) X10*3/uL Abs Immat Gran (auto) (0.00-0.03) X10*3/uL Absolute Neuts (auto) (2.0-8.3) x10*3/uL Absolute Nucleated RBC (0.0-0.012) X10*3/uL Nucleated RBC % (auto) (0.0-0.2) /100WBC D-Dimer High Sensitivty NG/ML O2 Saturation % ABG pH at Pt Temp (7.35-7.45) ABG pCO2 at Pt Temp (32-45) mmHg ABG pO2 at Pt Temp (83-108) mmHg ABG HCO3 (22-26) mmol/L ABG Base Excess (Actual) mmol/L Sodium 142 (135-145) mmol/L Potassium 6.3 H* (3.3-5.1) mmol/L Chloride 104 (96-108) mmol/L Carbon Dioxide 28 (22-29) mmol/L Anion Gap 16 (12-20) BUN 38 H (9-16) mg/dL Creatinine 1.45 H (0.5-1.4) mg/dL Estim Creat Clear Calc 64.6 Estimated GFR 49 Random Glucose 118 H (60-115) mg/dL Lactic Acid (0.5-2.0) mmol/L Lactic Acid F/U @ 2Hr (0.5-2.0) mmol/L Calcium 9.0 (8.4-10.2) mg/dL Magnesium 1.6 (1.6-2.6) mg/dL Total Bilirubin 1.6 H (0.0-1.0) mg/dL AST 348 H (5-37) U/L ALT 113 H (0-40) U/L Alkaline Phosphatase 65 (39-117) U/L Ammonia 30 (13-55) umol/L Troponin I High Sens 15.5 (<3.5-35.0) ng/L B-Natriuretic Peptide 881 H (<100) pg/mL Total Protein 8.0 (6.5-8.0) g/dL Albumin 3.7 (3.5-5.0) g/dL Urine Color Urine Appearance Urine pH (5.0-9.0) Ur Specific [place] (1.005-1.025) Urine Protein (Neg-Trace) mg/dL Urine Glucose (UA) (Negative) mg/dL Urine Ketones (Negative) mg/dL Urine Blood (Negative) Urine Nitrite (Negative) Ur Leukocyte Esterase (Negative) Urine RBC (0-2) /HPF Urine WBC (0-5) /HPF Ur Squamous Epith Cells (0-2) /HPF Urine Bacteria (None Seen) Hyaline Casts (0-2) /LPF Granular Casts Urine Opiates Screen (Not Detect) Urine Fentanyl Screen (Not Detect) Ur Barbiturates Screen (Not Detect) Ur Phencyclidine Scrn (Not Detect) Ur Amphetamines Screen (Not Detect) U Benzodiazepines Scrn (Not Detect) Urine Cocaine Screen (Not Detect) U Marijuana (THC) Screen (Not Detect) COVID-19 (EWA) (Negative) COVID-19 Clin Com 02/28/22 02/28/22 02/28/22 Range/Units 17:13 17:18 17:30 WBC 7.6 (4.8-10.8) X10*3/uL RBC 3.69 L (4.60-5.80) X10*6/uL Hgb 9.7 L (14.0-18.0) g/dl Hct 33.6 L (42.0-52.0) % MCV 91.1 (80.0-98.0) fL MCH 26.3 L (27.0-33.0) pg MCHC 28.9 L (31.0-36.0) g/dl RDW 18.2 H (11.0-16.0) % Plt Count 196 (160-400) X10*3/uL MPV 10.8 (9.4-12.4) fL Immature Gran % (Auto) 0.4 (0.0-0.4) % Neut % (Auto) 68.8 (45-73) % Lymph % (Auto) 12.1 L (20-40) % [place] % (Auto) 16.6 H (2-11) % Eos % (Auto) 1.8 (0-4) % Baso % (Auto) 0.3 (0-2) % Lymph # (Auto) 0.9 L (1.2-4.9) X10*3/uL [place] # (Auto) 1.3 H (0.1-1.2) X10*3/uL Eos # (Auto) 0.1 (0.0-0.4) X10*3/uL Baso # (Auto) 0.0 (0.0-0.2) X10*3/uL Abs Immat Gran (auto) 0.03 (0.00-0.03) X10*3/uL Absolute Neuts (auto) 5.2 (2.0-8.3) x10*3/uL Absolute Nucleated RBC 0.030 H (0.0-0.012) X10*3/uL Nucleated RBC % (auto) 0.4 H (0.0-0.2) /100WBC D-Dimer High Sensitivty NG/ML O2 Saturation % ABG pH at Pt Temp (7.35-7.45) ABG pCO2 at Pt Temp (32-45) mmHg ABG pO2 at Pt Temp (83-108) mmHg ABG HCO3 (22-26) mmol/L ABG Base Excess (Actual) mmol/L Sodium (135-145) mmol/L Potassium (3.3-5.1) mmol/L Chloride (96-108) mmol/L Carbon Dioxide (22-29) mmol/L Anion Gap (12-20) BUN (9-16) mg/dL Creatinine (0.5-1.4) mg/dL Estim Creat Clear Calc Estimated GFR Random Glucose (60-115) mg/dL Lactic Acid 2.8 H* (0.5-2.0) mmol/L Lactic Acid F/U @ 2Hr (0.5-2.0) mmol/L Calcium (8.4-10.2) mg/dL Magnesium (1.6-2.6) mg/dL Total Bilirubin (0.0-1.0) mg/dL AST (5-37) U/L ALT (0-40) U/L Alkaline Phosphatase (39-117) U/L Ammonia (13-55) umol/L Troponin I High Sens (<3.5-35.0) ng/L B-Natriuretic Peptide (<100) pg/mL Total Protein (6.5-8.0) g/dL Albumin (3.5-5.0) g/dL Urine Color Dark Yellow Urine Appearance Turbid Urine pH 5.5 (5.0-9.0) Ur Specific [place] 1.025 (1.005-1.025) Urine Protein 300 (3+) H (Neg-Trace) mg/dL Urine Glucose (UA) Negative (Negative) mg/dL Urine Ketones Trace (Negative) mg/dL Urine Blood Large (3+) H (Negative) Urine Nitrite Negative (Negative) Ur Leukocyte Esterase Moderate (2+) H (Negative) Urine RBC >20 H (0-2) /HPF Urine WBC >50 H (0-5) /HPF Ur Squamous Epith Cells 3-5 (0-2) /HPF Urine Bacteria 4+ (None Seen) Hyaline Casts 11-20 (0-2) /LPF Granular Casts Present Urine Opiates Screen (Not Detect) Urine Fentanyl Screen (Not Detect) Ur Barbiturates Screen (Not Detect) Ur Phencyclidine Scrn (Not Detect) Ur Amphetamines Screen (Not Detect) U Benzodiazepines Scrn (Not Detect) Urine Cocaine Screen (Not Detect) U Marijuana (THC) Screen (Not Detect) COVID-19 (EWA) (Negative) COVID-19 Clin Com 02/28/22 02/28/22 Range/Units 17:30 20:38 WBC (4.8-10.8) X10*3/uL RBC (4.60-5.80) X10*6/uL Hgb (14.0-18.0) g/dl Hct (42.0-52.0) % MCV (80.0-98.0) fL MCH (27.0-33.0) pg MCHC (31.0-36.0) g/dl RDW (11.0-16.0) % Plt Count (160-400) X10*3/uL MPV (9.4-12.4) fL Immature Gran % (Auto) (0.0-0.4) % Neut % (Auto) (45-73) % Lymph % (Auto) (20-40) % [place] % (Auto) (2-11) % Eos % (Auto) (0-4) % Baso % (Auto) (0-2) % Lymph # (Auto) (1.2-4.9) X10*3/uL [place] # (Auto) (0.1-1.2) X10*3/uL Eos # (Auto) (0.0-0.4) X10*3/uL Baso # (Auto) (0.0-0.2) X10*3/uL Abs Immat Gran (auto) (0.00-0.03) X10*3/uL Absolute Neuts (auto) (2.0-8.3) x10*3/uL Absolute Nucleated RBC (0.0-0.012) X10*3/uL Nucleated RBC % (auto) (0.0-0.2) /100WBC D-Dimer High Sensitivty NG/ML O2 Saturation % ABG pH at Pt Temp (7.35-7.45) ABG pCO2 at Pt Temp (32-45) mmHg ABG pO2 at Pt Temp (83-108) mmHg ABG HCO3 (22-26) mmol/L ABG Base Excess (Actual) mmol/L Sodium (135-145) mmol/L Potassium (3.3-5.1) mmol/L Chloride (96-108) mmol/L Carbon Dioxide (22-29) mmol/L Anion Gap (12-20) BUN (9-16) mg/dL Creatinine (0.5-1.4) mg/dL Estim Creat Clear Calc Estimated GFR Random Glucose (60-115) mg/dL Lactic Acid (0.5-2.0) mmol/L Lactic Acid F/U @ 2Hr 3.7 H* (0.5-2.0) mmol/L Calcium (8.4-10.2) mg/dL Magnesium (1.6-2.6) mg/dL Total Bilirubin (0.0-1.0) mg/dL AST (5-37) U/L ALT (0-40) U/L Alkaline Phosphatase (39-117) U/L Ammonia (13-55) umol/L Troponin I High Sens (<3.5-35.0) ng/L B-Natriuretic Peptide (<100) pg/mL Total Protein (6.5-8.0) g/dL Albumin (3.5-5.0) g/dL Urine Color Urine Appearance Urine pH (5.0-9.0) Ur Specific [place] (1.005-1.025) Urine Protein (Neg-Trace) mg/dL Urine Glucose (UA) (Negative) mg/dL Urine Ketones (Negative) mg/dL Urine Blood (Negative) Urine Nitrite (Negative) Ur Leukocyte Esterase (Negative) Urine RBC (0-2) /HPF Urine WBC (0-5) /HPF Ur Squamous Epith Cells (0-2) /HPF Urine Bacteria (None Seen) Hyaline Casts (0-2) /LPF Granular Casts Urine Opiates Screen POSITIVE H (Not Detect) Urine Fentanyl Screen Not Detected (Not Detect) Ur Barbiturates Screen Not Detected (Not Detect) Ur Phencyclidine Scrn Not Detected (Not Detect) Ur Amphetamines Screen Not Detected (Not Detect) U Benzodiazepines Scrn Not Detected (Not Detect) Urine Cocaine Screen Not Detected (Not Detect) U Marijuana (THC) Screen Not Detected (Not Detect) COVID-19 (EWA) (Negative) COVID-19 Clin Com ECG Data Attestation: I personally reviewed and interpreted this ECG as follows: Prior ECG tracings: available for review Interpretation: Ventricular rate of 131, MS normal, QRS normal, QT/QTC normal. EKG with sinus tachycardia with right bundle branch block, no evidence of ischemia at this time. No significant changes when compared to EKG from 08/31/2018. Critical Care Time Critical Care Time Critical Care Time: Yes Total Critical Care Time: 120 Attestation: I attest to this time spent taking care of the patient, obtaining history, physical, reviewing labs, imaging, speaking to my attending, speaking to specialist. Discharge Plan Discharge Clinical Impression: Weakness, Respiratory failure, Acute hyperkalemia, SISI (acute kidney injury), Transaminitis, Acute UTI, Anasarca, Effusion, pericardium, Pleural effusion, Hematoma, CHF (congestive heart failure) Patient Disposition: Admitted As Inpatient Prescriptions: No Action budesonide-formoterol [Symbicort] 160-4.5 mcg/actuation HFA aerosol inhaler 2 puff inhalation BID Qty: 3 3RF (DME) michael.stocking,knee,reg,xlrg Misc See Rx Instructions .ROUTE .MEDSUPPLY Qty: 12 0RF Rx Instructions: As directed 20-30 mm Hg apixaban [Eliquis] 5 mg tablet 5 mg PO BID Qty: 180 3RF metformin 850 mg tablet 850 mg PO BID Qty: 180 3RF gabapentin 600 mg tablet 600 mg PO BID Qty: 180 2RF rosuvastatin 5 mg tablet 5 mg PO DAILY Qty: 90 2RF duloxetine 60 mg capsule,delayed release(DR/EC) 60 mg PO DAILY Qty: 90 3RF tamsulosin 0.4 mg capsule 0.4 mg PO DAILY 90 Days Qty: 90 3RF oxycodone-acetaminophen [Percocet] 5-325 mg tablet 1 tab PO Q6H PRN (Reason: pain) Qty: 120 0RF Rx Instructions: May partial fill pantoprazole 40 mg tablet,delayed release (DR/EC) 1 tab PO DAILY lisinopril 2.5 mg tablet 1 tab PO DAILY cholecalciferol (vitamin D3) 25 mcg (1,000 unit) tablet 25 mcg PO DAILY albuterol sulfate [ProAir HFA] 90 mcg/actuation HFA aerosol inhaler 2 puff inhalation Q6H PRN (Reason: Shortness Of Breath) fluticasone propionate [Flonase Allergy Relief] 50 mcg/actuation spray,suspension 1 spray intranasal DAILY 30 Days Qty: 16 2RF Rx Instructions: administer into each nostril metoprolol tartrate 25 mg tablet 37.5 mg PO BID lactulose 10 gram/15 mL solution 20 g PO TID PRN (Reason: laxative effect) Qty: 946 0RF Rx Instructions: Take 3 times a day as needed to facillitate 2-3 bowel movements per day. nystatin [Nystop] 100,000 unit/gram powder 1 appl topical TID Qty: 60 2RF ferrous sulfate 325 mg (65 mg iron) tablet 325 mg PO DAILY furosemide [Lasix] 40 mg tablet 80 mg PO DAILY (DME) DIABETIC SHOES See Rx Instructions .Route .MEDSUPPLY Qty: 1 0RF Rx Instructions: As directed
--- OUTSIDE RECORDS SUMMARY | 2022-02-28 16:12 | XMS_ITS | Continuity of Care Document ---
:1960 Author Organization [facility] Address [address] [place] [id number]- Care Team Providers Name Role Phone Po Per MALIK [id number] Date(s[facility]22/21 - 09/22/[address] [address] Discharge Disposition: A-D/C Home Attending Physician: Antoni Guillory MD Admitting Physician: Antoni Guillory MD Referring Physician: Antoni Guillory MD Allergies, Adverse Reactions, Alerts No Known Allergies Medications Crestor 5 mg oral tablet 1 tablet = 5 mg, By Mouth, Daily at bedtime, 0 Refills, Maintenance, 02/27/17 11:14:18 Start Date: 02/27/17 Status: Orderedduloxetine 60 mg oral enteric coated capsule 1 capsule = 60 mg, By Mouth, Daily, 0 Refills, Maintenance, 01/02/21 14:43:00 EDT, Partial fill uponpatient request if the prescription is for a schedule II opioid drug. Start Date: 01/02/21 Status: OrderedEliquis 5 mg oral tablet 1 tablet = 5 mg, By Mouth, 2 times a day, 0 Refills, Maintenance, 01/02/21 14:43:00 EDT, Partial fill upon patient request if the prescription is for a schedule II opioid drug. Start Date: 01/02/21 Status: Orderedgabapentin 600 mg oral tablet 1 tablet = 600 mg, By Mouth, 3 times a day, 0 Refills, Maintenance, 01/02/21 14:42:00 EDT, Partial fill upon patient request if the prescription is for a schedule II opioid drug. Start Date: 01/02/21 Status: OrderedLasix 40 mg oral tablet 40 mg, 1, tablet, By Mouth, Daily, Refills 0, Maintenance, 01/02/21 14:43:00 EDT, Partial fill upon patient request if the prescription is for a schedule II opioid drug. Start Date: 01/02/21 Status: Orderedlisinopril 30 mg oral tablet 1 tablet = 30 mg, By Mouth, Daily, 0 Refills, Maintenance, 08/22/16 14:56:12 Start Date: 08/22/16 Status: OrderedmetFORMIN 850 mg oral tablet 1 tablet = 850 mg, By Mouth, 2 times a day, 0 Refills, Maintenance, 08/22/16 14:55:26 Start Date: 08/22/16 Status: OrderedPercocet-10/325 1 tablet, By Mouth, Every 6 hours, Taking 1-2 tablets tid, 0 Refills, Maintenance, 08/22/16 14:57:01 Start Date: 08/22/16 Status: Orderedtamsulosin 0.4 mg oral capsule 0.4 mg, 1, capsule, By Mouth, Daily, Refills 0, Maintenance, 08/22/16 14:56:34 Start Date: 08/22/16 Status: OrderedVitamin D3 1000 intl units oral tablet 1 tablet = 1,000 International_Units, By Mouth, Daily, 0 Refills, Maintenance, 08/22/16 14:56:46 Start Date: 08/22/16 Status: Ordered Problem List Condition Effective Dates Status Health Status Informant Chronic lower back pain(Confirmed) Active Chronic, continuous use of Active opioids(Confirmed) Obese class I(Confirmed) Active Vital Signs Most recent to oldest 1 2 3 [Reference Range]: Height 170 cm 170 cm 170 cm (09/22/21 9:44 AM) (09/22/21 9:37 AM) (09/22/21 9:3 4 AM) Weight 100 kg 100 kg (09/22/21 9:44 AM) (09/22/21 9:34 AM) Oxygen Saturation [94-100 %] 97 % 87 % 96 % (09/22/21 11:45 AM) *L* (09/22/21 9:37 AM) (09/22/21 10:30 AM) Pulse Rate [55-90 bpm] 88 bpm (09/22/21 9:37 AM) Blood Pressure [90-138/55-84 110/82 mm Hg 101/69 mm Hg 112 /81 mm Hg mm Hg] (09/22/21 11:45 AM) (09/22/21 10:30 AM) (09/22/21 9 :37 AM) Respiratory Rate [16-30 16 br/min 13 br/min 17 br/mi n br/min] (09/22/21 11:45 AM) *L* (09/22/21 9:37 AM) (09/22/21 10:30 AM) Temperature [96.8-100.4 DegF] 97.9 DegF (09/22/21 9:37 AM) Mode of Delivery (Oxygen) Room air Room air Room a ir (09/22/21 11:45 AM) (09/22/21 10:30 AM) (09/22/21 9 :37 AM) Blood pressure sites Arm, left Arm, left (09/22/21 11:45 AM) (09/22/21 10:30 AM) Dry Weight 100 kg (09/22/21 9:34 AM)
--- OUTSIDE RECORDS SUMMARY | 2022-02-28 16:12 | XMS_ITS | Continuity of Care Document ---
:1960 Author Organization [facility] Address [address] [address]- Care Team Providers Name Role Phone Po Per MALIK Primary Care Physician En[place] [facility] [place] Date(s): 03/24/21 - 04/23/21 [facility] [address] [place] [id number] Allergies, Adverse Reactions, Alerts Substance Reaction Severity Status NKA Active Medications Crestor 5 mg oral tablet 1 [...]
--- OUTSIDE RECORDS SUMMARY | 2022-02-28 16:12 | XMS_ITS | Continuity of Care Document ---
:1960 Author Organization [facility] Address [address] [place] [address]- Care Team Providers Name Role Phone Po Per MALIK Primary Care Physician [place] [facility] [place] 02/[place]/21 [facility] [address] [place] [id number] Allergies, Adverse Reactions, Alerts Substance Reaction Severity Status NKA Active Medications aspirin 81 mg oral tablet 1 tablet = 81 mg, By Mouth, Daily, 0 Refills, Maintenance, 08/22/16 14:56:23 Start Date: 08/22/16 Status: OrderedCrestor 5 mg oral tablet 1 tablet = [...]
--- OUTSIDE RECORDS SUMMARY | 2022-02-28 16:12 | XMS_ITS | Continuity of Care Document ---
:1960 Author Organization [facility] Address [address] [place] [id number] Care Team Providers Name Role Phone Po Per MALIK Primary Care Physician Encounter [facility] Date(s): 01/28/22 - 02/10/[address] [id number] Discharge Disposition: Disch/Trans to IP Rehab or unit w/in Hos Attending Physician: Juni Song MD Admitting Physician: Rachel Green MD, Joe Santizo Referring Physician: Not on Staff, Referring MD Allergies, Adverse Reactions, Alerts No Known Allergies Immunizations Given and Recorded Vaccine Date Status Refusal Reason SARS-CoV-2 mRNA ([id number]) vax 09/08/21 Recorde d SARS-CoV-2 (COVID-19) mRNA BNT-162b2 vac 03/22/21 Recorde d SARS-CoV-2 (COVID-19) mRNA BNT-162b2 vac 09/02/20 Recorde d SARS-CoV-2 (COVID-19) mRNA BNT-162b2 vac 08/12/20 Recorde d influenza virus vaccine, inactivated 03/15/21 Recorded influenza virus vaccine, inactivated 04/25/20 Recorded influenza virus vaccine, inactivated1 03/10/19 Recorded influenza virus vaccine, inactivated 02/21/18 Recorded influenza virus vaccine, inactivated 03/18/17 Recorded influenza virus vaccine, inactivated 02/15/16 Recorded influenza virus vaccine, inactivated 03/18/15 Recorded influenza virus vaccine, inactivated 02/20/15 Recorded pneumococcal 23-valent vaccine 10/26/16 Recorded pneumococcal 23-valent vaccine 10/25/15 Recorded tetanus-diphtheria toxoids (Td) 04/25/14 Recorded 1Result Comment: Lot Number: InfluenzaIIVA,0.5ml,MDV Medications acetaminophen-oxyCODONE 325 mg-5 mg oral tablet 1, tablet, By Mouth, Every 6 hours, PRN, Refills 0, Tot. Refills 0, Pain , Severe Start Date: 09/29/21 Status: Orderedalbuterol-ipratropium 3 mg-0.5 mg/3 ml inhalation solution BAND Nebulizer, Every 4 hours, PRN Wheezing/Shortness of Breath, 0 Refills, Maintenance, 02/10/22 14:44:00 EDT, Inhalation Solution, Partial fill upon patient request if the prescription is for a schedule II opioid drug. Start Date: 02/10/22 Status: Orderedduloxetine 60 mg oral enteric coated capsule 1 capsule = 60 mg, By Mouth, Daily, # 30 capsule, 0 Refills, Maintenance, 09/29/21 12:15:00 EDT, EC Capsule, Partial fill upon patient request if the prescription is for a schedule II opioid drug. Start Date: 09/29/21 Status: OrderedEliquis 5 mg oral tablet 1 tablet = 5 mg, By Mouth, 2 times a day, # 60 tablet, 5 Refills, Maintenance, 02/08/22 10:36:00 EDT, Tablet, Partial fill upon patient request if the prescription is for a schedule II opioid drug. Start Date: 02/08/22 Status: Orderedergocalciferol 61967 iu oral capsule 50,000 International_Units, 1, capsule, By Mouth, Every 30 days, # 6 capsule, Refills 0, Maintenance, 09/29/21 11:49:00 EDT, Partial fill upon patient request if the prescription is for a schedule II opioid drug. Start Date: 09/29/21 Status: Orderedfluticasone 50 mcg/inh nasal spray 1 sprays, Nares, Both, Daily in AM, 0 Refills, Maintenance, 09/29/21 11:53:00 EDT, [place], Partial fill upon patient request if the prescription is for a schedule II opioid drug. Start Date: 09/29/21 Status: Orderedgabapentin 600 mg oral tablet 1 tablet = 600 mg, By Mouth, 2 times a day, # 270 tablet, 0 Refills, Maintenance, 09/29/21 12:14:00 EDT, Tablet, Partial fill upon patient request if the prescription is for a schedule II opioid drug. Start Date: 09/29/21 Status: Orderedlactulose 10 gm/15 ml oral syrup 30 mL = 20 Gm, By Mouth, 3 times a day, PRN Other, Take it 3 times a day as needed to facilitate 2-3bowel movements every day, 0 Refills, Maintenance, 02/10/22 14:45:00 EDT, Syrup, Partial fill upon patient request if the prescription is for a schedu... Start Date: 02/10/22 Status: OrderedLasix 40 mg oral tablet 40 mg, 1, tablet, By Mouth, 2 times a day, Refills 0, Maintenance, 09/29/21 12:40:00 EDT, Partial fill upon patient request if the prescription is for a schedule II opioid drug. Start Date: 09/29/21 Status: Orderedlisinopril 5 mg oral tablet 5 mg, 1, tablet, By Mouth, Daily, # 30 tablet, Refills 0, Maintenance, 09/29/21 11:49:00 EDT, Partial fill upon patient request if the prescription is for a schedule II opioid drug. Start Date: 09/29/21 Status: Orderedmelatonin 3 mg oral tablet 1 tablet = 3 mg, By Mouth, Daily at bedtime, PRN as needed for insomnia, 0 Refills, Maintenance, 02/10/22 14:46:00 EDT, Tablet, Partial fill upon patient request if the prescription is for a schedule II opioid drug. Start Date: 02/10/22 Status: OrderedmetFORMIN 850 mg oral tablet 1 tablet = 850 mg, By Mouth, 2 times a day, # 180 tablet, 0 Refills, Maintenance, 09/29/21 11:48:00 EDT, Tablet, Partial fill upon patient request if the prescription is for a schedule II opioid drug. Start Date: 09/29/21 Status: OrderedMetoprolol Tartrate 25 mg oral tablet 1.5 tablet = 37.5 mg, By Mouth, 2 times a day, 0 Refills, Maintenance, 09/29/21 12:39:00 EDT, Partial fill upon patient request if the prescription is for a schedule II opioid drug. Start Date: 09/29/21 Status: OrderedNicotine = 21 mg, Topically, Daily, 0 Refills, Maintenance, 02/10/22 14:50:00 EDT, Patch, Partial fill upon patient request if the prescription is for a schedule II opioid drug. Start Date: 02/10/22 Status: Orderedomeprazole 40 mg oral enteric coated capsule 1 capsule = 40 mg, By Mouth, Daily, before a meal, 0 Refills, Maintenance, 09/29/21 11:52:00 EDT, ECCapsule, Partial fill upon patient request if the prescription is for a schedule II opioid drug. Start Date: 09/29/21 Status: OrderedoxyCODONE 5 mg oral tablet 10 mg, Tablet, Nasogastric Tube, Every 6 hours, PRN for Pain , Severe, Routine, 02/04/22 11:38:00 EDT Start Date: 02/04/22 Stop Date: 02/11/22 Status: Discontinuedpantoprazole 40 mg oral delayed release tablet = 40 mg, By Mouth, Daily, 0 Refills, Maintenance, 02/10/22 14:46:00 EDT, EC Tablet Start Date: 02/10/22 Status: OrderedPercocet-10/325 1 tablet, By Mouth, Every 6 hours, Taking 1-2 tablets tid, 0 Refills, Maintenance, 08/22/16 14:57:01 Start Date: 08/22/16 Status: OrderedRemove Patch 1 each, Topically, Daily, 0 Refills, Maintenance, Patch Start Date: 02/10/22 Status: Orderedrosuvastatin 5 mg oral tablet 1 tablet = 5 mg, By Mouth, Daily, # 30 tablet, 0 Refills, Maintenance, 09/29/21 11:53:00 EDT, Tablet, Partial fill upon patient request if the prescription is for a schedule II opioid drug. Start Date: 09/29/21 Status: OrderedSymbicort 160mcg/4.5mcg Inhaler 2, puffs, Inhalation, 2 times a day, # 6 Gm, Refills 0, Maintenance, 02/08/22 14:08:00 EDT, Aerosol Start Date: 02/08/22 Status: Orderedtamsulosin 0.4 mg oral capsule 0.4 mg, 1, capsule, By Mouth, Daily at bedtime, # 30 capsule, Refills 0, Maintenance, 09/29/21 12:16:00 EDT, Partial fill upon patient request if the prescription is for a schedule II opioid drug. Start Date: 09/29/21 Status: OrderedtraZODone 50 mg oral tablet 50 mg, 1, tablet, By Mouth, Daily at bedtime, PRN, insomnia, Refills 0, Maintenance, Other, 02/10/2214:46:00 EDT, Partial fill upon patient request if the prescription is for a schedule II opioid drug. Start Date: 02/10/22 Status: OrderedTylenol 325 mg oral tablet 650 mg, Tablet, By Mouth, 02/10/22 13:30:00 EDT Start Date: 02/10/22 Stop Date: 02/10/22 Status: CompletedTylenol 325 mg oral tablet 650 mg, 2, tablet, By Mouth, 3 times a day, PRN, Refills 0, Maintenance, Pain , Moderate, 02/10/22 14:43:00 EDT, Partial fill upon patient request if the prescription is for a schedule II opioid drug. Start Date: 02/10/22 Status: OrderedVitamin D3 1000 intl units oral capsule 1 capsule = 25 mcg, By Mouth, Daily, 0 Refills, Maintenance, 09/29/21 12:40:00 EDT, Partial fill upon patient request if the prescription is for a schedule II opioid drug. Start Date: 09/29/21 Status: Ordered Problem List Condition Effective Dates Status Health Status Informant Chronic lower back pain(Confirmed) Active Chronic, continuous use of Active opioids(Confirmed) Obese class I(Confirmed) Active Obese class II(Confirmed) Active Results Orders for Microbiology Reports Name Date Blood Culture 01/28/22 Blood Culture #2 01/28/22 Microbiology Reports TEST:Blood Culture STATUS:Auth (Verified) BODY SITE: SOURCE:Blood COLLECTED DATE/TIME:01/28/22 12:40 PMBlood Culture SPECIMEN DESCRIPTION : BLOOD L AC SPECIAL REQUESTS : NONE CULTURE : NO GROWTH 5 DAYS. REPORT STATUS : FINAL 02/02/2022TEST:Blood Culture, Second Order STATUS:Auth (Verified) BODY SITE: SOURCE:Blood COLLECTED DATE/TIME:01/28/22 12:40 PMBlood Culture, Second Order SPECIMEN DESCRIPTION : BLOOD R AC SPECIAL REQUESTS : NONE CULTURE : NO GROWTH 5 DAYS. REPORT STATUS : FINAL 2Radiology Reports Exam Date Time Procedure Performing Provider Status 02/03/22 7:50 PM Chest Portable Michael Barber; Auth (Verified) Notes:(Chest Portable) Reason For Exam: NG tube;Tube PlacementRESULT: Chest Portable PROCEDURE: Chest Portable CLINICAL INDICATION: 61 years old Male with Reason: Tube Placement; NG tube; Clinical Question(s): Other:. COMPARISON: Chest radiographs 09/28/2021 through 02/01/2022. FINDINGS: Portable AP supine view of the chest performed at 7:36 PM. Lines and tubes: Several EKG leads project over the chest. ETT has been removed. Enteric tube can befollowed to the cardia of the stomach, the tip not seen. Lungs and pleura: Obscured RIGHT hemidiaphragm due to a small to moderate RIGHT pleural effusion andpossible atelectasis or pneumonia at the RIGHT lung base unchanged. Mild linear atelectasis unchanged at the LEFT lung base. No definite LEFT pleural effusion..No evidence of pneumothorax. Heart, mediastinum and calli: Moderate to severe cardiomegaly and moderate pulmonary venous hypertension unchanged with probable mild interstitial edema also present and unchanged.. Bones and soft tissues: Moderate degenerative changes in the thoracic spine. IMPRESSION: 1. Interval removal of ETT. Enteric tube can be followed to the gastric cardia, tip not seen. 2. Small to moderate RIGHT pleural effusion with compressive atelectasis or pneumonia at the RIGHT lung base again noted. Mild linear atelectasis at the LEFT lung base unchanged. 3. Moderate to severe cardiomegaly, moderate pulmonary venous hypertension and mild interstitial edema likely unchanged since two days ago. Thank you for allowing me to participate in the care of this patient. A critical result message (Document Only) has been communicated via the [employer] system on 02/03/2022 8:10 PM, Message ID [id number]. WSN: [id number] Ordering Physician: Amish Bhakta Dictated By: Jonah Thakur MD Dictated Date/Time: 02/03/22 8:10 pm Reviewed By: Jonah Thakur MD Signed By: Jonah Thakur MD Signed Date/Time: 02/03/22 8:10 pm Transcribed By: JAIR Transcribed Date/Time: 02/03/22 8:07 pm Exam Date Time Procedure Performing Provider Status 02/01/22 7:40 PM Chest Portable Luz Villaseñor; Auth (Verified) Notes:(Chest Portable) Reason For Exam: OG tube placement;Tube PlacementRESULT: Chest Portable Chest Portable INDICATION/CLINICAL QUESTION: Reason: Tube Placement; OG tube placement; Clinical Question(s): Tube Placement / Tube Placement TECHNIQUE: AP chest 1906 hours 02/01/2022. COMPARISON: 01/28/2022. FINDINGS: LINES AND TUBES: Endotracheal tube 27 mm above the lauren. NG tube satisfactory.. LUNGS AND PLEURA: RIGHT CHEST: The upper lung is clear. Consolidation and effusion at the right base which is new.. LEFT CHEST: The upper midline are clear. There is new consolidation and effusion at the left base.. HEART AND MEDIASTINAL CONTOURS: Stable cardiomegaly. Mediastinal contour normal.. BONES AND SOFT TISSUES: No acute abnormality.. IMPRESSION: 1. Satisfactory position endotracheal tube and NG tube. 2. Effusion and consolidation has developed at each lung base. WSN: [id number] Ordering Physician: Bryan Key Dictated By: Kenny Hewitt MD Dictated Date/Time: 02/01/22 7:44 pm Reviewed By: Kenny Hewitt MD Signed By: Kenny Hewitt MD Signed Date/Time: 02/01/22 7:44 pm Transcribed By: JAIR Transcribed Date/Time: 02/01/22 7:42 pm Exam Date Time Procedure Performing Provider Status 01/28/22 4:54 PM Chest Portable Sarthak Medina (Verified) Notes:(Chest Portable) Reason For Exam: Shortness of BreathRESULT: Chest Portable Chest Portable, 4:39 PM Reason: Shortness of Breath; Clinical Question(s): CHF COMPARISON: 01/28/2022, 3:36 PM FINDINGS: LINES AND TUBES: Endotracheal tube tip unchanged, mid trachea, 4.5 cm above the lauren. Enteric tube tip below diaphragm off inferior margin of image. LUNGS AND PLEURA: Lungs unchanged with moderate vascular congestion. Central pulmonary arteries remain enlarged and indistinct. Mild Myesha B-lines. No pleural effusion. No pneumothorax. HEART, MEDIASTINUM AND CALLI: Moderate prominence of the cardiac silhouette, unchanged, with pericardial effusion not excluded. Normal upper mediastinal and hilar contour. BONES AND SOFT TISSUES: No acute abnormality. IMPRESSION: Mild to moderate CHF, slightly worsened since 3:36 PM, same day. WSN: [id number] Ordering Physician: Sae Arora Dictated By: Jason Wakefield MD Dictated Date/Time: 01/28/22 6:13 pm Reviewed By: Jason Wakefield MD Signed By: Jason Wakefield MD Signed Date/Time: 01/28/22 6:13 pm Transcribed By: JAIR Transcribed Date/Time: 01/28/22 6:13 pm Exam Date Time Procedure Performing Provider Status 01/28/22 3:45 PM Chest Portable Willy Mejía; Tisha (Verified) Notes:(Chest Portable) Reason For Exam: Shortness of BreathRESULT: Chest Portable Chest Portable Hx of Present Illness: pt brought in by family for purple finger pt admits to sob, pt lethargic upon assessment, only knows name at this time, pt noted to have lower leg swelling and redness, wears 2lnc at home as baseline pt hypoxic, flow rn made aware; Reason: Shortness of Breath; Clinical Question(s): CHF COMPARISON: 01/28/2022 FINDINGS: LINES AND TUBES: Endotracheal and nasogastric tubes in good position. LUNGS AND PLEURA: Central vascular engorgement and some hazy opacities. HEART, MEDIASTINUM AND CALLI: Prominent cardiac silhouette and central vascular engorgement. BONES AND SOFT TISSUES: No acute abnormality. IMPRESSION: Mild pulmonary edema. WSN: [id number] Ordering Physician: Daily Kaplan Dictated By: Malvin Patel MD Dictated Date/Time: 01/28/22 4:11 pm Reviewed By: Malvin Patel MD Signed By: Malvin Patel MD Signed Date/Time: 01/28/22 4:11 pm Transcribed By: JAIR Transcribed Date/Time: 01/28/22 4:08 pm Exam Date Time Procedure Performing Provider Status 01/28/22 1:12 PM Chest Portable Nohemy Mata; Tisha (Verifie d) Notes:(Chest Portable) Reason For Exam: Shortness of BreathRESULT: Chest Portable Chest Portable performed semiupright at 1:02 PM Hx of Present Illness: pt brought in by family for purple finger pt admits to sob, pt lethargic upon assessment, only knows name at this time, pt noted to have lower leg swelling and redness, wears 2lnc at home as baseline pt hypoxic, flow rn made aware; Reason: Shortness of Breath; Clinical Question(s): CHF COMPARISON: Chest x-ray dated 09/28/2021. FINDINGS: LINES AND TUBES: None. LUNGS AND PLEURA: There are low lung volumes with crowding of the lung markings and no definite vascular congestion. No pleural effusion. No pneumothorax. HEART, MEDIASTINUM AND CALLI: Severe prominence of the cardiac silhouette, unchanged. Normal upper mediastinal and hilar contour. BONES AND SOFT TISSUES: No acute abnormality. IMPRESSION: Prominence of the cardiac silhouette, which is similar to the prior examination. Low lung volumes and no definite vascular congestion. WSN: [id number] Ordering Physician: Cristin Morales Dictated By: Cassidy Marie MD Dictated Date/Time: 01/28/22 1:34 pm Reviewed By: Cassidy Marie MD Signed By: Cassidy Marie MD Signed Date/Time: 01/28/22 1:34 pm Transcribed By: JAIR Transcribed Date/Time: 01/28/22 1:29 pm Vital Signs Most recent to oldest 1 2 3 [Reference Range]: Height 170 cm 170 cm 170 cm (02/10/22 11:31 AM) (02/10/22 8:12 AM) (02/10/22 4: 59 AM) Weight 104.1 kg 96.5 kg 102.6 kg (02/10/22 6:43 AM) (02/09/22 6:52 AM) (02/08/22 4:5 0 PM) Oxygen Saturation [94-100 %] 92 % 94 % 95 % *L* (02/10/22 8:12 AM) (02/10/22 4:59 AM) (02/10/22 11:31 AM) Pulse Rate [55-90 bpm] 88 bpm 88 bpm 84 bpm (02/10/22 2:00 PM) (02/10/22 11:31 AM) (02/10/22 8: 12 AM) Body Mass Index [18.5-24.99] 35.5 *>HHI* (02/08/22 4:50 PM) Blood Pressure [90-138/55-84 101/60 mm Hg 105/71 mm Hg 96/ 70 mm Hg mm Hg] (02/10/22 2:00 PM) (02/10/22 11:31 AM) (02/10/22 8: 12 AM) Respiratory Rate [16-30 18 br/min 18 br/min 16 br/mi n br/min] (02/10/22 2:53 PM) (02/10/22 1:46 PM) (02/10/22 11: 31 AM) Temperature [96.8-100.4 98.7 DegF 98.6 DegF 98 DegF DegF] (02/10/22 11:31 AM) (02/10/22 8:12 AM) (02/10/22 4: 59 AM) Liters per Minute 2 L/min 2 L/min 2 L/min (02/10/22 4:59 AM) (02/09/22 11:42 PM) (02/09/22 7: 41 PM) Mode of Delivery (Oxygen) Room air Room air Nasal cannula (02/10/22 11:31 AM) (02/10/22 8:12 AM) (02/10/22 4: 59 AM) Blood pressure sites Arm, right Arm, right Arm, right (02/10/22 11:31 AM) (02/10/22 8:12 AM) (02/10/22 4: 59 AM) Temperature Route Oral Oral Oral (02/10/22 11:31 AM) (02/10/22 8:12 AM) (02/10/22 4: 59 AM) Dry Weight 102.6 kg 102.6 kg (02/08/22 4:50 PM) (01/28/22 6:52 PM) Weight Obtained Via Bed scale Standing scale Bed scale (02/10/22 6:43 AM) (02/09/22 6:52 AM) (02/05/22 7:0 0 AM) Dry Weight Obtained Via Bed scale (01/28/22 6:52 PM) Social History Social History Type Response Smoking Status 10 or more cigarettes (1/2 p ack or more)/day in last 30 days; Interested in cessation: Yes; Patient wants NRT during admission Yes; Type: Cigarettes; Number of years: 50; entered on: 09/29/21 Sex Note [facility] , CIS S: TRANSCRIBE Blaze MALIK, Jonah Banks: VERIFY Event Display: Result: Authored Date: PROCEDURE: Chest Portable CLINICAL INDICATION: 61 years old Male with Reason: Tube Placement; NG tube; Clinical Question(s): Other:. COMPARISON: Chest radiographs 09/28/2021 through 02/01/2022. FINDINGS: Portable AP supine view of the chest performed at 7:36 PM. Lines and tubes: Several EKG leads project over the chest. ETT has been removed. Enteric tube can befollowed to the cardia of the stomach, the tip not seen. Lungs and pleura: Obscured RIGHT hemidiaphragm due to a small to moderate RIGHT pleural effusion andpossible atelectasis or pneumonia at the RIGHT lung base unchanged. Mild linear atelectasis unchanged at the LEFT lung base. No definite LEFT pleural effusion..No evidence of pneumothorax. Heart, mediastinum and calli: Moderate to severe cardiomegaly and moderate pulmonary venous hypertension unchanged with probable mild interstitial edema also present and unchanged.. Bones and soft tissues: Moderate degenerative changes in the thoracic spine. IMPRESSION: 1. Interval removal of ETT. Enteric tube can be followed to the gastric cardia, tip not seen. 2. Small to moderate RIGHT pleural effusion with compressive atelectasis or pneumonia at the RIGHT lung base again noted. Mild linear atelectasis at the LEFT lung base unchanged. 3. Moderate to severe cardiomegaly, moderate pulmonary venous hypertension and mild interstitial edema likely unchanged since two days ago. Thank you for allowing me to participate in the care of this patient. A critical result message (Document Only) has been communicated via the [employer] system on 02/03/2022 8:10 PM, Message ID [id number]. WSN: [id number] Ordering Physician: Amish Bhakta Dictated By: Jonah Thakur MD Dictated Date/Time: 02/03/22 8:10 pm Reviewed By: Jonah Thakur MD Signed By: Jonah Thakur MD Signed Date/Time: 02/03/22 8:10 pm Transcribed By: JAIR Transcribed Date/Time: 02/03/22 8:07 pmBHSPowerscribe , CIS S: TRANSCRIBE Marcelina MALIK, Kenny D: VERIFY Event Display: Result: Authored Date: [id number] Chest Portable INDICATION/CLINICAL QUESTION: Reason: Tube Placement; OG tube placement; Clinical Question(s): Tube Placement / Tube Placement TECHNIQUE: AP chest 1906 hours 02/01/2022. COMPARISON: 01/28/2022. FINDINGS: LINES AND TUBES: Endotracheal tube 27 mm above the lauren. NG tube satisfactory.. LUNGS AND PLEURA: RIGHT CHEST: The upper lung is clear. Consolidation and effusion at the right base which is new.. LEFT CHEST: The upper midline are clear. There is new consolidation and effusion at the left base.. HEART AND MEDIASTINAL CONTOURS: Stable cardiomegaly. Mediastinal contour normal.. BONES AND SOFT TISSUES: No acute abnormality.. IMPRESSION: 1. Satisfactory position endotracheal tube and NG tube. 2. Effusion and consolidation has developed at each lung base. WSN: [id number] Ordering Physician: Bryan Key Dictated By: Kenny Hewitt MD Dictated Date/Time: 02/01/22 7:44 pm Reviewed By: Kenny Hewitt MD Signed By: Kenny Hewitt MD Signed Date/Time: 02/01/22 7:44 pm Transcribed By: JAIR Transcribed Date/Time: 02/01/22 7:42 pmBHSPowerscribe , CIS S: TRANSCRIBE Frank MALIK, Cassidy Banks: VERIFY Event Display: Result: Authored Date: [id number] Chest Portable performed semiupright at 1:02 PM Hx of Present Illness: pt brought in by family for purple finger pt admits to sob, pt lethargic upon assessment, only knows name at this time, pt noted to have lower leg swelling and redness, wears 2lnc at home as baseline pt hypoxic, flow rn made aware; Reason: Shortness of Breath; Clinical Question(s): CHF COMPARISON: Chest x-ray dated 09/28/2021. FINDINGS: LINES AND TUBES: None. LUNGS AND PLEURA: There are low lung volumes with crowding of the lung markings and no definite vascular congestion. No pleural effusion. No pneumothorax. HEART, MEDIASTINUM AND CALLI: Severe prominence of the cardiac silhouette, unchanged. Normal upper mediastinal and hilar contour. BONES AND SOFT TISSUES: No acute abnormality. IMPRESSION: Prominence of the cardiac silhouette, which is similar to the prior examination. Low lung volumes and no definite vascular congestion. WSN: [id number] Ordering Physician: Cristin Morales Dictated By: Cassidy Marie MD Dictated Date/Time: 01/28/22 1:34 pm Reviewed By: Cassidy Marie MD Signed By: Cassidy Marie MD Signed Date/Time: 01/28/22 1:34 pm Transcribed By: JAIR Transcribed Date/Time: 01/28/22 1:29 pmSPowerscribe , CIS S: TRANSCMalvin Gates MD: VERIFY Event Display: Result: Authored Date: [id number] Chest Portable Hx of Present Illness: pt brought in by family for purple finger pt admits to sob, pt lethargic upon assessment, only knows name at this time, pt noted to have lower leg swelling and redness, wears 2lnc at home as baseline pt hypoxic, flow rn made aware; Reason: Shortness of Breath; Clinical Question(s): CHF COMPARISON: 01/28/2022 FINDINGS: LINES AND TUBES: Endotracheal and nasogastric tubes in good position. LUNGS AND PLEURA: Central vascular engorgement and some hazy opacities. HEART, MEDIASTINUM AND CALLI: Prominent cardiac silhouette and central vascular engorgement. BONES AND SOFT TISSUES: No acute abnormality. IMPRESSION: Mild pulmonary edema. WSN: [id number] Ordering Physician: Daily Kaplan Dictated By: Malvin Patel MD Dictated Date/Time: 01/28/22 4:11 pm Reviewed By: Malvin Patel MD Signed By: Malvin Patel MD Signed Date/Time: 01/28/22 4:11 pm Transcribed By: JAIR Transcribed Date/Time: 01/28/22 4:08 pmSPowerscribe , CIS S: TRANSCRIBE Jason Wakefield MD: VERIFY Event Display: Result: Authored Date: [id number] Chest Portable, 4:39 PM Reason: Shortness of Breath; Clinical Question(s): CHF COMPARISON: 01/28/2022, 3:36 PM FINDINGS: LINES AND TUBES: Endotracheal tube tip unchanged, mid trachea, 4.5 cm above the lauren. Enteric tube tip below diaphragm off inferior margin of image. LUNGS AND PLEURA: Lungs unchanged with moderate vascular congestion. Central pulmonary arteries remain enlarged and indistinct. Mild Myesha B-lines. No pleural effusion. No pneumothorax. HEART, MEDIASTINUM AND CALLI: Moderate prominence of the cardiac silhouette, unchanged, with pericardial effusion not excluded. Normal upper mediastinal and hilar contour. BONES AND SOFT TISSUES: No acute abnormality. IMPRESSION: Mild to moderate CHF, slightly worsened since 3:36 PM, same day. WSN: [id number] Ordering Physician: Sae Arora Dictated By: Jason Wakefield MD Dictated Date/Time: 01/28/22 6:13 pm Reviewed By: Jason Wakefield MD Signed By: Jason Wakefield MD Signed Date/Time: 01/28/22 6:13 pm Transcribed By: JAIR Transcribed Date/Time: 01/28/22 6:13 pm Care Team PersonnelName: Per Nunez MD Address: [address] [place] [id number]
--- OUTSIDE RECORDS SUMMARY | 2022-02-28 16:12 | XMS_ITS | Continuity of Care Document ---
:1960 Author Organization [facility] Address [address] [place] [address]- Care Team Providers Name Role Phone Po Per MALIK Primary Care Physician [place] [facility] [place]s): 05/12/21 - 06/11/21 [facility] [address] [place] [id number] Allergies, Adverse Reactions, Alerts No Known Allergies [...] a schedule II opioid drug. Start Date: 8/9/21 Status: Orderedlisinopril 30 mg oral tablet 1 [...]
--- OUTSIDE RECORDS SUMMARY | 2022-02-28 16:12 | XMS_ITS | Continuity of Care Document ---
:1960 Author Organization [facility] Address Unavailable , Care Team Providers Name Role Phone Po Per MALIK Primary Care Physician Encounter [facility] [place] Date(s): 10/10/21 - 11/09/21 [facility] Attending Physician: Lubna Marie Admitting Physician: AdmLubna alicea Referring Physician: trLubna Allergies, Adverse Reactions, Alerts No Known Allergies Immunizations Given and Recorded Vaccine Date Status Refusal Reason SARS-CoV-2 mRNA (tgyxfpl-kcxq-ajhck) vax 09/08/21 Recorde d SARS-CoV-2 (COVID-19) mRNA [...] Pain , Severe Start Date: 09/29/21 Status: OrderedCrestor 5 mg oral tablet 1 [...] II opioid drug. Start Date: 01/02/21 Status: Orderedduloxetine 60 mg oral enteric coated [...] day, # 60 tablet, 5 Refills, Maintenance, 09/29/21 11:47:00 EDT, Table[place], Partial fill upon patient request if the prescription is for a schedule II opioid drug. Start Date: 09/29/21 Status: Orderedergocalciferol 44242 iu oral capsule 50,000 International_Units, 1, capsule, By Mouth, Every 30 days, # 6 capsule, Refills 0, Maintenance, 09/29/21 11:49:00 EDT, Partial fill upon patient request if the prescription is for a schedule II opioid drug. Start Date: 09/29/21 Status: Orderedfluticasone 50 mcg/inh nasal spray 1 sprays, Nares, Both, Daily in AM, 0 Refills, Maintenance, 09/29/21 11:53:00 EDT, [place], Partial fill upon patient request if the [...] II opioid drug. Start Date: 09/29/21 Status: OrderedLasix 40 mg oral tablet 40 [...] opioid drug. Start Date: 09/29/21 Status: Orderedlisinopril 30 mg oral tablet 1 tablet = 30 mg, By Mouth, Daily, 0 Refills, Maintenance, 08/22/16 14:56:12 Start Date: 08/22/16 Status: Orderedlisinopril 5 mg oral tablet 5 mg, 1, tablet, By Mouth, Daily, # 30 tablet, Refills 0, Maintenance, 09/29/21 11:49:00 EDT, Partial fill upon patient request if the prescription is for a schedule II opioid drug. Start Date: 09/29/21 Status: OrderedmetFORMIN 850 mg oral tablet 1 tablet = 850 mg, By Mouth, 2 times a day, 0 Refills, Maintenance, 08/22/16 14:55:26 Start Date: 08/22/16 Status: OrderedmetFORMIN 850 mg oral tablet 1 tablet = 850 mg, By Mouth, 2 times a day, # 180 tablet, 0 Refills, Maintenance, 09/29/21 11:48:00 EDT, [place], Partial fill upon patient request if the prescription is for a schedule II opioid drug. Start Date: 09/29/21 Status: OrderedMetoprolol Tartrate 25 mg oral tablet 1 tablet = 25 mg, By Mouth, 2 times a day, 0 Refills, Maintenance, 09/29/21 12:39:00 EDT, Partial fill upon patient request if the prescription is for a schedule II opioid drug. Start Date: 09/29/21 Status: Orderedomeprazole 40 mg oral enteric coated capsule 1 capsule = 40 mg, By Mouth, Daily, before a meal, 0 Refills, Maintenance, 09/29/21 11:52:00 EDT, [place], Partial fill upon patient request if the prescription is for a schedule II opioid drug. Start Date: 09/29/21 Status: OrderedPercocet-10/325 1 tablet, By Mouth, Every 6 hours, Taking 1-2 tablets tid, 0 Refills, Maintenance, 08/22/16 14:57:01 Start Date: 08/22/16 Status: Orderedrosuvastatin 5 mg oral tablet 1 tablet = 5 mg, By Mouth, Daily, # 30 tablet, 0 Refills, Maintenance, 09/29/21 11:53:00 EDT, [place], Partial fill upon patient request if the prescription is for a schedule II opioid drug. Start Date: 09/29/21 Status: Orderedtamsulosin 0.4 mg oral capsule 0.4 mg, 1, capsule, By Mouth, Daily, Refills 0, Maintenance, 08/22/16 14:56:34 Start Date: 08/22/16 Status: Orderedtamsulosin 0.4 mg oral capsule 0.4 mg, 1, capsule, By Mouth, Daily at bedtime, # 30 capsule, Refills 0, Maintenance, 09/29/21 12:16:00 EDT, Partial fill upon patient request if the prescription is for a schedule II opioid drug. Start Date: 09/29/21 Status: OrderedVitamin D3 1000 intl units oral capsule 1 capsule = 25 mcg, By Mouth, Daily, 0 Refills, Maintenance, 09/29/21 12:40:00 EDT, Partial fill upon patient request if the prescription is for a schedule II opioid drug. Start Date: 09/29/21 Status: OrderedVitamin D3 1000 intl units oral tablet 1 tablet = 1,000 International_Units, By Mouth, Daily, 0 Refills, Maintenance, 08/22/16 14:56:46 Start Date: 08/22/16 Status: Ordered Problem List Condition Effective Dates Status Health Status Informant Chronic lower back pain(Confirmed) Active Chronic, continuous use of Active opioids(Confirmed) Obese class I(Confirmed) Active Obese class I(Confirmed) Active Social History Social History Type Response Smoking Status 10 or more cigarettes (1/2 p ack or more)/day in last 30 days; Interested in cessation: Yes; Patient wants NRT during admission Yes; Type: Cigarettes; Number of years: 50; entered on: 09/29/21 Sex
--- OUTSIDE RECORDS SUMMARY | 2022-02-28 16:12 | XMS_ITS | Continuity of Care Document ---
:1960 Author Organization [facility] Address [address] [address]- Care Team Providers Name Role Phone Po Per MALIK Primary Care Physician Encounter [facility] [place] Date(s): 03/21/21 - 03/28/21 [facility] [address] [place] [phone]- Attending Physician: Daphney Selby MD Referring Physician: Agapito Díaz MD Allergies, Adverse Reactions, Alerts Substance Reaction Severity [...] Active Chronic, continuous use of Active opioids(Confirmed) Vital Signs Most recent to oldest [Reference Range]: 1 Height 170 cm (03/21/21 8:44 AM) Oxygen Saturation [94-100 %] 95 % (03/21/21 8:44 AM) Pulse Rate [55-90 bpm] 74 bpm (03/21/21 8:44 AM) Blood Pressure [90-138/55-84 mm Hg] 100/62 mm Hg (03/21/21 8:44 AM) Respiratory Rate [16-30 br/min] 18 br/min (03/21/21 8:44 AM) Blood pressure sites Arm, left (03/21/21 8:44 AM)
--- OUTSIDE RECORDS SUMMARY | 2022-02-28 16:12 | XMS_ITS | Continuity of Care Document ---
:1960 Author Organization [facility] Address [address] [place] [address]- Care Team Providers Name Role Phone Po Per MALIK Primary Care Physician Encounter [facility] [place] Date(s): 12/30/20 - 01/29/21 [facility] [address] [place] [address] Allergies, Adverse Reactions, Alerts Substance Reaction Severity [...]
--- OUTSIDE RECORDS SUMMARY | 2022-02-28 16:12 | XMS_ITS | Continuity of Care Document ---
:1960 Author Organization [facility] Address [address] [address]- Care Team Providers Name Role Phone Po Per MALIK Primary Care Physician [place] [facility] [place]): [place] 04/20/21 [facility] [address] [place] [id number] Attending Physician: Lubna Marie Admitting Physician: Lubna Marie Referring Physician: AdmtrLubna Allergies, Adverse Reactions, Alerts Substance Reaction Severity [...]
--- OUTSIDE RECORDS SUMMARY | 2022-02-28 16:12 | XMS_ITS | Continuity of Care Document ---
:1960 Author Organization [facility] Address [address] [place] [address]- Care Team Providers Name Role Phone Po Per MALIK Primary Care Physician [place] [facility] [place]s): 01/02/21 - 02/01/21 [facility] [address] [place] [id number] Attending Physician: Lubna Marie Admitting Physician: Lubna [...]
--- OUTSIDE RECORDS SUMMARY | 2022-02-28 16:12 | XMS_ITS | Continuity of Care Document ---
:1960 Author Organization [address] [place] [address]- Care Team Providers Name Role Phone Po Per MALIK Primary Care Physician [place] [facility] - 12/07/[address], [address] [place], [place] [address] Allergies, Adverse Reactions, Alerts No Known Allergies Immunizations Given and Recorded Vaccine Date Status Refusal Reason SARS-CoV-2 mRNA ([id number]-ckdt-pbdrk) vax 09/08/21 Recorde d SARS-CoV-2 (COVID-19) mRNA [...] opioid drug. Start Date: 09/29/21 Status: Orderedergocalciferol 28252 iu oral capsule 50,000 International_Units, 1, capsule, By Mouth, Every 30 days, # 6 capsule, Refills 0, Maintenance, 09/29/21 11:49:00 EDT, Partial fill upon patient request if the prescription is for a schedule II opioid drug. Start Date: 09/29/21 Status: Orderedfluticasone 50 mcg/inh nasal spray 1 sprays, Nares, Both, Daily in AM, 0 Refills, Maintenance, 09/29/21 11:53:00 EDT, [place], Partial fill upon patient request if the [...]
--- OUTSIDE RECORDS SUMMARY | 2022-02-28 16:12 | XMS_ITS | Continuity of Care Document ---
:1960 Author Organization [facility] Address Unavailable , Care Team Providers Name Role Phone Po Per MALIK Primary Care Physician [place] [facility] [place]s): 10/05/21 - 11/04/21 [facility] Allergies, Adverse Reactions, Alerts No Known Allergies Immunizations Given and Recorded Vaccine Date Status Refusal Reason SARS-CoV-2 mRNA (ulvsjhn-wzio-zihvn) vax 09/08/21 Recorde d SARS-CoV-2 (COVID-19) mRNA [...] opioid drug. Start Date: 09/29/21 Status: Orderedergocalciferol 16723 iu oral capsule 50,000 International_Units, 1, capsule, By Mouth, Every 30 days, # 6 capsule, Refills 0, Maintenance, 09/29/21 11:49:00 EDT, Partial fill upon patient request if the prescription is for a schedule II opioid drug. Start Date: 09/29/21 Status: Orderedfluticasone 50 mcg/inh nasal spray 1 sprays, Nares, Both, Daily in AM, 0 Refills, Maintenance, 09/29/21 11:53:00 EDT, [place], Partial fill upon patient request if the [...]
--- OUTSIDE RECORDS SUMMARY | 2022-02-28 16:12 | XMS_ITS | Continuity of Care Document ---
:1960 Author Organization [facility] Address [address] [place] [address]- Care Team Providers Name Role Phone Po Per MALIK Primary Care Physician [place] [facility] [place] 03/[place]/[address] [address] Discharge Disposition: A-D/C Home Attending Physician: Michi Loyola MD Admitting Physician: Michi Loyola MD Referring Physician: Agapito Díaz MD Allergies, [...] Maintenance, 08/22/16 14:57:01 Start Date: 08/22/16 Status: OrderedPercocet-5/325 325 mg-5 mg oral tablet 1 tablet, Tablet, By Mouth, Once, STAT, 03/08/21 10:37:00 EDT, Stop date 03/08/21 10:37:00 EDT Start Date: 03/08/21 Stop Date: 03/08/21 Status: Completedtamsulosin 0.4 mg oral capsule 0.4 mg, 1, [...] opioids(Confirmed) Vital Signs Most recent to oldest 1 2 3 [Reference Range]: Height 170 cm 170 cm (03/08/21 8:00 AM) (03/08/21 8:00 AM) Weight 88.7 kg 88.7 kg (03/08/21 8:00 AM) (03/08/21 8:00 AM) Oxygen Saturation [94-100 %] 91 % 91 % 98 % *L* *L* (03/08/21 2:00 P M) (03/08/21 2:30 PM) (03/08/21 2:15 PM) Pulse Rate [55-90 bpm] 63 bpm (03/08/21 8:00 AM) Body Mass Index [18.5-24.99] 30.69 *>HHI* (03/08/21 8:00 AM) Blood Pressure [90-138/55-84 115/92 mm Hg 112/87 mm Hg 124 /79 mm Hg mm Hg] (03/08/21 2:30 PM) (03/08/21 2:00 PM) (03/08/21 1:40 PM) Respiratory Rate [16-30 22 br/min 18 br/min 20 br/mi n br/min] (03/08/21 2:05 PM) (03/08/21 8:45 AM) (03/08/21 8:05 AM) Temperature [96.8-100.4 97.6 DegF DegF] (03/08/21 8:00 AM) Liters per Minute 2 L/min 2 L/min 2 L/min (03/08/21 2:00 PM) (03/08/21 1:40 PM) (03/08/21 1:15 PM) Mode of Delivery (Oxygen) Room air Room air Nasal cannula (03/08/21 2:30 PM) (03/08/21 2:15 PM) (03/08/21 2:00 PM) Blood pressure sites Arm, left Arm, left Arm, left (03/08/21 2:30 PM) (03/08/21 2:00 PM) (03/08/21 1:30 PM) Temperature Route Temporal (03/08/21 8:00 AM) Dry Weight 88.7 kg 88.7 kg (03/08/21 8:00 AM) (03/08/21 8:00 AM) Weight Obtained Via Standing scale Standing scale (03/08/21 8:00 AM) (03/08/21 8:00 AM) Dry Weight Obtained Via Standing scale Standing scale (03/08/21 8:00 AM) (03/08/21 8:00 AM)
--- OUTSIDE RECORDS SUMMARY | 2022-02-28 16:12 | XMS_ITS | Continuity of Care Document ---
:1960 Author Organization [facility] Address [address] [place] [address]- Care Team Providers Name Role Phone Po Per MALIK Primary Care Physician [place] [facility] [place] 01/19/21 [facility] [address] [place] [id number] Allergies, Adverse Reactions, Alerts Substance Reaction [...]
--- OUTSIDE RECORDS SUMMARY | 2022-02-28 16:12 | XMS_ITS | Continuity of Care Document ---
:1960 Author Organization [address] [place] [address]- Care Team Providers Name Role Phone Po Per MALIK Primary Care Physician [place] [facility] [place]21 - 11/29/[address], [address] [place], [place] [address] Attending Phys[facility]: Admtr, Ar8 Admitting Physician: Admtr, Ar8 Referring Physician: Admtr, Ar8 Allergies, Adverse Reactions, Alerts No Known Allergies Immunizations Given and Recorded Vaccine Date Status Refusal Reason SARS-CoV-2 mRNA ([id number]-mljk-chend) vax 09/08/21 Recorde d SARS-CoV-2 (COVID-19) mRNA [...] opioid drug. Start Date: 09/29/21 Status: Orderedergocalciferol 21492 iu oral capsule 50,000 International_Units, 1, capsule, By Mouth, Every 30 days, # 6 capsule, Refills 0, Maintenance, 09/29/21 11:49:00 EDT, Partial fill upon patient request if the prescription is for a schedule II opioid drug. Start Date: 09/29/21 Status: Orderedfluticasone 50 mcg/inh nasal spray 1 sprays, Nares, Both, Daily in AM, 0 Refills, Maintenance, 09/29/21 11:53:00 EDT, [place], Partial fill upon patient request if the [...]
--- OUTSIDE RECORDS SUMMARY | 2022-02-28 16:12 | XMS_ITS | Continuity of Care Document ---
:1960 Author Organization [facility] Address [address] [place] [address]- Care Team Providers Name Role Phone Po Per MALIK Primary Care Physician Encounter [facility] Date(s): 06/19/21 - 07/19/21 [facility] [address] [place] [id number] Allergies, Adverse Reactions, Alerts No [...]
--- OUTSIDE RECORDS SUMMARY | 2022-02-28 16:12 | XMS_ITS | Continuity of Care Document ---
:1960 Author Organization [facility] Address [address] [place] [address]- Care Team Providers Name Role Phone Po Per MALIK Primary Care Physician Encounter [facility] Date(s): 09/05/21 - 10/05/21 [facility] [address] [place] [phone] Attending Physician: Admtr, Ar8 Admitting Physician: Admtr, Ar8 Referring Physician: Admtr, Ar8 Allergies, Adverse Reactions, Alerts No Known Allergies Immunizations Given and Recorded Vaccine Date Status Refusal Reason SARS-CoV-2 mRNA (cptvrph-hhaz-gzkmi) vax 09/08/21 Recorde d SARS-CoV-2 (COVID-19) mRNA [...] opioid drug. Start Date: 09/29/21 Status: Orderedergocalciferol 23185 iu oral capsule 50,000 International_Units, 1, capsule, By Mouth, Every 30 days, # 6 capsule, Refills 0, Maintenance, 09/29/21 11:49:00 EDT, Partial fill upon patient request if the prescription is for a schedule II opioid drug. Start Date: 09/29/21 Status: Orderedfluticasone 50 mcg/inh nasal spray 1 sprays, Nares, Both, Daily in AM, 0 Refills, Maintenance, 09/29/21 11:53:00 EDT, [place], Partial fill upon patient request if the [...]
--- OUTSIDE RECORDS SUMMARY | 2022-02-28 16:12 | XMS_ITS | Continuity of Care Document ---
:1960 Author Organization [facility] Address [address] [place] [address]- Care Team Providers Name Role Phone Po Per MALIK Primary Care Physician En[place] [facility] [place] Date(s): 09/05/21 - 09/12/21 [facility] [address] [place] [phone] Attending Physician: Daphney Selby MD Referring Physician: Agapito Díaz MD Allergies, Adverse Reactions, Alerts No Known [...] Active Vital Signs Most recent to oldest [Reference Range]: 1 Height 170 cm (09/05/21 11:01 AM) Weight 88.7 kg (09/05/21 11:01 AM) Oxygen Saturation [94-100 %] 94 % (09/05/21 11:01 AM) Pulse Rate [55-90 bpm] 68 bpm (09/05/21 11:01 AM) Body Mass Index [18.5-24.99] 30.69 *>HHI* (09/05/21 11:01 AM) Blood Pressure [90-138/55-84 mm Hg] 128/80 mm Hg (09/05/21 11:01 AM) Respiratory Rate [16-30 br/min] 18 br/min (09/05/21 11:01 AM) Mode of Delivery (Oxygen) Room air (09/05/21 11:01 AM) Blood pressure sites Arm, right (09/05/21 11:01 AM) Weight Obtained Via Patient/family stated (09/05/21 11:01 AM)
--- OUTSIDE RECORDS SUMMARY | 2022-02-28 16:12 | XMS_ITS | Continuity of Care Document ---
:1960 Author Organization [facility] Address [address] [place] [address]- Care Team Providers Name Role Phone Per Nunez MD [id number] Date[facility] - [facility] [address] [place] [address] Attending Physician: Jesus Rosas MD Admitting Physician: Jesus Rosas MD Referring Physician: Per Nunez MD Allergies, Adverse Reactions, Alerts Substance Reaction [...]
--- OUTSIDE RECORDS SUMMARY | 2022-02-28 16:12 | XMS_ITS | Continuity of Care Document ---
:1960 Author Organization [facility] Address [address] [place] [address]- Care Team Providers Name Role Phone Per Nunez MD [id number] Date(s[facility] 12/29/20 - 03/16/21 [facility] [address] [place], [place] [address] Attending Physician: Jesus Rosas MD Admitting Physician: [...]
--- OUTSIDE RECORDS SUMMARY | 2022-02-28 16:13 | XMS_ITS | Continuity of Care Document ---
:1960 Author Organization [facility] Address Unavailable , Care Team Providers Name Role Phone Po Per MALIK Primary Care Physician [place] [facility] [place](s): 10/04/21 - 11/09/21 [facility] Attending Physician: Ricardo CHAPMAN MD, Puneet Loza Allergies, Adverse Reactions, Alerts No Known Allergies Immunizations Given and Recorded Vaccine Date Status Refusal Reason SARS-CoV-2 mRNA (fhcbzro-lanx-hvpiy) vax 09/08/21 Recorde d SARS-CoV-2 (COVID-19) mRNA [...] opioid drug. Start Date: 09/29/21 Status: Orderedergocalciferol 67297 iu oral capsule 50,000 International_Units, 1, capsule, By Mouth, Every 30 days, # 6 capsule, Refills 0, Maintenance, 09/29/21 11:49:00 EDT, Partial fill upon patient request if the prescription is for a schedule II opioid drug. Start Date: 09/29/21 Status: Orderedfluticasone 50 mcg/inh nasal spray 1 sprays, Nares, Both, Daily in AM, 0 Refills, Maintenance, 09/29/21 11:53:00 EDT, [place], Partial fill upon patient request if the [...]
--- OUTSIDE RECORDS SUMMARY | 2022-02-28 16:13 | XMS_ITS | Continuity of Care Document ---
:1960 Author Organization [facility] Address Unavailable , Care Team Providers Name Role Phone Po Per MALIK Primary Care Physician [place] [facility] [place] 10/10[place]21 - 11/09/21 [facility] Attending Physician: AdmLubna alicea Admitting Physician: AdmtrLubna Referring Physician: AdmtrLubna Allergies, Adverse Reactions, Alerts No Known Allergies Immunizations Given and Recorded Vaccine Date Status Refusal Reason SARS-CoV-2 mRNA (pwsmqtt-kmkf-bblxr) vax 09/08/21 Recorde d SARS-CoV-2 (COVID-19) mRNA [...] opioid drug. Start Date: 09/29/21 Status: Orderedergocalciferol 08898 iu oral capsule 50,000 International_Units, 1, capsule, By Mouth, Every 30 days, # 6 capsule, Refills 0, Maintenance, 09/29/21 11:49:00 EDT, Partial fill upon patient request if the prescription is for a schedule II opioid drug. Start Date: 09/29/21 Status: Orderedfluticasone 50 mcg/inh nasal spray 1 sprays, Nares, Both, Daily in AM, 0 Refills, Maintenance, 09/29/21 11:53:00 EDT, [place], Partial fill upon patient request if the [...]
--- OUTSIDE RECORDS SUMMARY | 2022-02-28 16:13 | XMS_ITS | Continuity of Care Document ---
:1960 Author Organization [facility] Address [address] [place] [address]- Care Team Providers Name Role Phone Po Per MALIK Primary Care Physician En[place] [facility] [place] Date(s): 01/03/21 - 02/02/21 [facility] [address] [place] [id number] Allergies, Adverse Reactions, Alerts Substance Reaction [...]
--- OUTSIDE RECORDS SUMMARY | 2022-02-28 16:13 | XMS_ITS | Continuity of Care Document ---
:1960 Author Organization [facility] Address [address] [place] [address]- Care Team Providers Name Role Phone Po Per MALIK Primary Care Physician [place] [facility] [place]21 - 03/16/21 [facility] [address] [place], [place] [address] Attending Physician: Lubna Marie Admitting Physician: Lubna [...]
--- OUTSIDE RECORDS SUMMARY | 2022-02-28 16:13 | XMS_ITS | Continuity of Care Document ---
:1960 Author Organization [address] [place] [address]- Care Team Providers Name Role Phone Po Per MALIK Primary Care Physician En[place] [facility] [place] Date(s[place] 10/30/21 - 11/06/[address], [address] [place], [place] [address] Attending Physician: Elroy Monroe MD Referring Physician: Neftaly [place] Allergies, Adverse Reactions, Alerts No Known Allergies Immunizations Given and Recorded Vaccine Date Status Refusal Reason SARS-CoV-2 mRNA (lukqlwb-aryo-akmot) vax 09/08/21 Recorde d SARS-CoV-2 (COVID-19) mRNA [...] opioid drug. Start Date: 09/29/21 Status: Orderedergocalciferol 85239 iu oral capsule 50,000 International_Units, 1, capsule, By Mouth, Every 30 days, # 6 capsule, Refills 0, Maintenance, 09/29/21 11:49:00 EDT, Partial fill upon patient request if the prescription is for a schedule II opioid drug. Start Date: 09/29/21 Status: Orderedfluticasone 50 mcg/inh nasal spray 1 sprays, Nares, Both, Daily in AM, 0 Refills, Maintenance, 09/29/21 11:53:00 EDT, [place], Partial fill upon patient request if the [...] class I(Confirmed) Active Obese class I(Confirmed) Active Vital Signs Most recent to oldest [Reference Range]: 1 Height 170 cm (10/30/21 9:13 AM) Weight 94.4 kg (10/30/21 9:13 AM) Body Mass Index [18.5-24.99] 32.66 *>HHI* (10/30/21 9:13 AM) Social History Social History Type Response Smoking Status 10 or more cigarettes (1/2 p ack or more)/day in last 30 days; Interested in cessation: Yes; Patient wants NRT during admission Yes; Type: Cigarettes; Number of years: 50; entered on: 09/29/21 Sex
--- OUTSIDE RECORDS SUMMARY | 2022-02-28 16:13 | XMS_ITS | Continuity of Care Document ---
:1960 Author Organization [address], [address] [place] [address]- Care Team Providers Name Role Phone Po Per MALIK Primary Care Physician Encounter [facility] [place] Date(s): 11/28/21 - 12/28/[address], [address] [place], [place] [address] Attending Physician: Admtr, [place] Admitting Physician: Admtr, Ar8 Referring Physician: Admtr, Ar8 Allergies, Adverse Reactions, Alerts No Known Allergies Immunizations Given and Recorded Vaccine Date Status Refusal Reason SARS-CoV-2 mRNA (eetalkg-lplv-zoqju) vax 09/08/21 Recorde d SARS-CoV-2 (COVID-19) mRNA [...] opioid drug. Start Date: 09/29/21 Status: Orderedergocalciferol 67787 iu oral capsule 50,000 International_Units, 1, capsule, By Mouth, Every 30 days, # 6 capsule, Refills 0, Maintenance, 09/29/21 11:49:00 EDT, Partial fill upon patient request if the prescription is for a schedule II opioid drug. Start Date: 09/29/21 Status: Orderedfluticasone 50 mcg/inh nasal spray 1 sprays, Nares, Both, Daily in AM, 0 Refills, Maintenance, 09/29/21 11:53:00 EDT, [place], Partial fill upon patient request if the [...]
--- OUTSIDE RECORDS SUMMARY | 2022-02-28 16:13 | XMS_ITS ---
:1960 Author Name Per Nunez Care Team Providers Name Role Phone Per Nunez Unavailable Unavailable PROBLEMS Type Condition ICD9-CM WDP37-IB Onset Condition SNOMED Cod e Code Code Dates Status Problem Other hammer M20.42 Active 1558329 [id number] toe(s) (acquired), left foot Problem Other hammer M20.41 Active 6766443 [id number] toe(s) (acquired), right foot Problem Type 2 diabetes E11.42 Active 7137 48777 mellitus with diabetic polyneuropathy ALLERGIES No Known Allergies ENCOUNTERS Encounter Location Date Diagnosis [facility] [address] Nov, Ing rowing nail L60.0 [place] [address] Jul, Typ e 2 diabetes mellitus [place], [place] with diabetic [address] polyneuropathy E 11.42 and Tinea unguium B3 5.1 [facility] [address] Mar, Typ e 2 diabetes mellitus [place], [place] with diabetic [address] polyneuropathy E 11.42 ; Tinea unguium B3 5.1 and Ingrowing nail L 60.0 [facility] [address] September, [place] [address] September, [place] [address] Aug, [place] [address] [facility] [address] May, Gen eralized edema R60.1 ; [place] Other hammer to e(s) [address] (acquired), left foot M20.42 ; Xerosis cutis L85.3 ; Ingrowin g nail L60.0 ; Type 2 d iabetes mellitus with di abetic polyneuropathy E 11.42 ; Other hammer toe (s) (acquired), righ t foot M20.41 and Tinea unguium B35.1 [facility] [address] Mar, [place] [address] Jun, [place] [address] Mar, [place] [address] Dec, Typ e 2 diabetes mellitus [place] with diabetic [address] polyneuropathy E 11.42 and Tinea unguium B3 5.[address] [facility] September, [place] [address] [facility] [address] [place] [address] September, Xerosis cutis L8 5.3 ; [place] [address] Other h ammer toe(s) (acquired), righ t foot M20.41 ; Type 2 diabetes mellitus with di abetic polyneuropathy E 11.42 ; Other hammer toe (s) (acquired), left foot M20.42 and Tinea unguium B35.1 [facility] [address] [facility] [address] May, [place] [address] [facility] Feb, [place] [address] Nov, Oth er hammer toe(s) [place] KORY (acquired), rig ht foot [address] M20.41 ; Type 2 diabetes mellitus with di abetic polyneuropathy E 11.42 ; Ingrowing nail L 60.0 ; Other hammer toe (s) (acquired), left foot M20.42 and Tinea unguium B35.1 [facility] Jul, [place] [address] Jan, [place] [address] Nov, Ing rowing nail L60.0 ; [place] Type 2 diabetes mellitus [address] with diabetic polyneuropathy E 11.42 and Tinea unguium B3 5.[address] September, Ing rowing nail L60.0 ; [place] Type 2 diabetes mellitus [address] with diabetic polyneuropathy E 11.42 ; Tinea unguium B3 5.1 and Xerosis cutis L8 5.[address] Jul, [place] [address] [facility] 14 Jun, 2016 [place] [address] May, [place] [address] Feb, Tin ea unguium B35.1 ; [place] Type 2 diabetes mellitus [address] with diabetic polyneuropathy E 11.42 and Ingrowing nail L 60.[address] Dec, Tin ea unguium B35.1 ; [place] Type 2 diabetes mellitus [address] without complica tions E11.9 ; Pain in right toe(s) M79.674 a nd Pain in left toe(s) M [address] Apr, [place] [address] Jan, Xer osis 706.8 ; [place]growing [place] Nail 703.0 ; [address] Onychomycosis 11 0.1 ; Pain in Limb 729 .5 and Diabetic - NIDDM 250.00 [facility] [address] Mar, [place] [address] [facility] [address] Feb, [place] [address] [facility] [address] Nov, Saniya chomycosis 110.1 ; [place] Ingrowing Nail 703.0 ; [address] Pain in Limb 729 .5 and Diabetic - NIDDM 250.00 [facility] [address] Oct, [place] [address] [facility] [address] Jul, Saniya chomycosis 110.1 ; [place] Ingrowing Nail 703.0 ; [address] Pain in Limb 729 .5 and Diabetic - NIDDM 250.00 [facility] [address] Jun, [place] [address] [facility] [address] Feb, Saniya chomycosis 110.1 ; [place] Ingrowing Nail 703.0 ; [address] Pain in Limb 729 .5 and Diabetic - NIDDM 250.00 [facility] [address] Nov, Ing rowing Nail 703.0 ; [place] Onychomycosis 1 10.1 ; [address] Pain in Limb 729 .5 ; Diabetic - NIDDM 250.00 and Tinea Pedis 110.4 [facility] [address] Nov, [place] [address] [facility] [address] Oct, [place] [address] [facility] [address] Aug, Saniya chomycosis 110.1 ; [place] Ingrowing Nail 703.0 ; [address] Pain in Limb 729 .5 and Diabetic - NIDDM 250.00 [facility] [address] [facility] [address] 15 Aug, 2012 [place] [address] 08 May, 2012 [facility] [place] [address] Mar, [facility] [place] [address] Jan, Saniya chomycosis 110.1 ; [place] [facility] [place] Pain in Limb 72 9.5 ; [address] Xerosis 706.8 an d Diabetic - NIDDM 250.[address] Nov, [facility] [place] [address] IMMUNIZATIONS Vaccine Route Administration Date Status COVID-19 Pfizer BioNTech Vaccine Unknown Mar 22, 2021 Administered Influenza Unknown Mar 15, 2021 Administered Influenza Unknown Mar 28, 2020 Administered Influenza Unknown Mar 21, 2018 Administered Influenza Unknown Feb 13, 2016 Administered Influenza Unknown Apr 13, 2015 Administered SOCIAL HISTORY Qualifiers Date Former Smoker 07/2018 REASON FOR REFERRAL FUNCTIONAL STATUS PLAN OF CARE Activity Details Follow Up 2 Weeks Reason: Future Appointment Provider Name:Bridgette Margy Auguste , 2022-03-08 11:30:00 AM, [address] [place] [address] [place], [address], Future/Pending Procedure 03680-Krlrhsui Plate Future/Pending Procedure 15638-Hbnqprvw Plate Each Ad ditional Future/Pending Procedure 48941-JBXWALN NAIL, 6 OR MOR E Future/Pending Procedure 12027-USYU SKIN LESIONS, OVE R 4 Future/Pending Procedure 28242-PXVUMUN NAIL, 6 OR MOR E Future/Pending Procedure 97368-Jwlouiwa Plate Future/Pending Procedure 07747-PQNA SKIN LESIONS, OVE R 4 Future/Pending Procedure 90546-RPHONCS NAIL, 6 OR MOR E Future/Pending Procedure 52053-Jowxvyrj Plate Future/Pending Procedure 21372-KDNH SKIN LESIONS, OVE R 4 Future/Pending Procedure 93646-RPEQOSK NAIL, 6 OR MOR E Future/Pending Procedure 39652-CADQ SKIN LESIONS, OVE R 4 Future/Pending Procedure 76832-WMVOGAU NAIL, 6 OR MOR E Future/Pending Procedure 46632-NNTU SKIN LESIONS, OVE R 4 Future/Pending Procedure 76076-XUHARLF NAIL, 6 OR MOR E Future/Pending Procedure 18746-Aginuvvi Plate Future/Pending Procedure 00875-Qmpbmsiq Plate Each Ad ditional Future/Pending Procedure 14191-CEWP SKIN LESIONS, OVE R 4 Future/Pending Procedure 42614-WCCMEWZ NAIL, 6 OR MOR E Future/Pending Procedure 33118-UMIT SKIN LESIONS, OVE R 4 Future/Pending Procedure 41786-AZIJVCI NAIL, 6 OR MOR E Future/Pending Procedure 89973-Lizrkpkd Plate Future/Pending Procedure 10930-BLUU SKIN LESIONS, OVE R 4 Future/Pending Procedure 80272-OAUGJWZ NAIL, 6 OR MOR E Future/Pending Procedure 72713-Qjkydsjn Plate Future/Pending Procedure 12626-YTLL SKIN LESIONS, OVE R 4 Future/Pending Procedure 03091-FTURCRB NAIL, 6 OR MOR E Future/Pending Procedure 23267-GNCYRAC NAIL, 6 OR MOR E Future/Pending Procedure 57502-Rlaxjwqw Plate Future/Pending Procedure 29723-Lxnhvvwb Plate Each Ad ditional Future/Pending Procedure 70650-VWAUUQO NAIL, 6 OR MOR E Future/Pending Procedure 98135-Cruicjod Plate Future/Pending Procedure 21701-Nuustean Plate Each Ad ditional Future/Pending Procedure 53854-BDFQZZV NAIL, 6 OR MOR E Future/Pending Procedure 79299-Khhmleln Plate Future/Pending Procedure 90610-Yqvrtahp Plate Each Ad ditional Future/Pending Procedure 21375-WLDRJTP NAIL, 6 OR MOR E Future/Pending Procedure 67785-Fopqldrm Plate Future/Pending Procedure 40035-UPGZYCG NAIL, 6 OR MOR E Future/Pending Procedure 82557-Zennoquz Plate Future/Pending Procedure 84066-Magedzrs Plate Each Ad ditional Future/Pending Procedure 09759-XDXOKWA NAIL, 6 OR MOR E Future/Pending Procedure 39872-Jsyckqoh Plate Future/Pending Procedure 82216-Xvuxzajy Plate Each Ad ditional Future/Pending Procedure 62336-CZXYNZP NAIL, 6 OR MOR E VITAL SIGNS Height 5 ft 7 in in 2021-12-07 Weight 196 lbs 2021-12-07 BMI 30.69 kg/m2 2021-12-07 Heart Rate 101 /min 2016-03-08 Temperature 96.6 degrees Fahrenheit 2020-06-20 Blood pressure systolic 114 mm Hg 2019-01-08 Blood pressure diastolic 76 mm Hg 2019-01-08 MEDICATIONS Medication Instructions Dosage Frequency Start End Duration Statu s Date Date DULoxetine HCl Orally Once a 1 capsule 24h A ctive 30 MG day Percocet 7.5 Orally every 6 1 tablet as 6h Active 10-325 MG hrs needed Lisinopril 20 Orally Once a 1 tablet 24h 30 day(s) N ot-Taki MG day ng Symbicort Active metFORMIN HCl Orally twice a 1 tablet with 12h Active 850 MG day evening meal Eliquis 5 MG Active Gabapentin 600 Orally twice a 1 tablet 12h A ctive MG day Extra Depth as directed Active Orthopedic Shoes (1 Pair) with Customized Heat Molded Multidensity Innersoles (3 Pair) Simvastatin 20 Orally Once a 1 tablet every 24h 30 d ay(s) Active MG day evening Rosuvastatin 1 tablet Active Calcium 5 MG Metoprolol Orally Twice a 1 tablet with 12h Active Tartrate 50 MG day food Wellbutrin 100 Orally Three 1 tablet 8h 30 day(s) N ot-Taki MG times a day ng Vitamin B1 Not-Taki ng Tamsulosin HCl Not-Tak ng Januvia 100 MG Orally Once a 1 tablet 24h 30 day(s) Not-Taki day ng Furosemide 40 Orally Once a 1 tablet 24h Act trina MG day Tamsulosin HCl Orally Once a 1 capsule 30 24h 30 day (s) Active 0.4 MG day minutes after the same meal each day Omeprazole 40 Orally Once a 1 tablet 24h Act trina MG day Ciclopirox Externally 1 application 12h Nov, 30 days Not- Taki Olamine 0.77 % Twice a day to affected 2013 n g area Aspirin 81 MG Orally Once a 1 tablet 24h 30 day(s) N ot-Taki day ng Vitamin D 1000 Orally Once a 1 tablet 24h 30 day(s) Active UNIT day Folic Acid Not-Taki ng PROCEDURES Procedure Date Ordered Result Body Site TRIM SKIN LESIONS, OVER 4 October 01, 2016 DEBRIDE NAIL, 6 OR MORE August 03, 2021 Avulsion Plate Jun 20, 2020 DEBRIDE NAIL, 6 OR MORE Apr 06, 2021 DEBRIDE NAIL, 6 OR MORE December 23, 2017 DEBRIDE NAIL, 6 OR MORE Jan 08, 2019 DEBRIDE NAIL, 6 OR MORE October 08, 2018 DEBRIDE NAIL, 6 OR MORE Feb 14, 2017 DEBRIDE NAIL, 6 OR MORE Mar 08, 2016 Avulsion Plate Feb 21, 2015 Avulsion Plate December 10, 2016 DEBRIDE NAIL, 6 OR MORE August 06, 2013 DEBRIDE NAIL, 6 OR MORE Feb 07, 2012 Avulsion Plate Each Additional Feb 21, 2015 Avulsion Plate December 07, 2021 TRIM SKIN LESIONS, OVER 4 December 23, 2017 DEBRIDE NAIL, 6 OR MORE October 01, 2016 DEBRIDE NAIL, 6 OR MORE Mar 11, 2013 DEBRIDE NAIL, 6 OR MORE December 16, 2013 DEBRIDE NAIL, 6 OR MORE Dec 26, 2015 Avulsion Plate Each Additional December 23, 2017 TRIM SKIN LESIONS, OVER 4 Jun 20, 2020 Avulsion Plate Each Additional Feb 21, 2015 TRIM SKIN LESIONS, OVER 4 October 08, 2018 Avulsion Plate Each Additional August 06, 2013 Avulsion Plate Mar 08, 2016 TRIM SKIN LESIONS, OVER 4 December 10, 2016 Avulsion Plate Each Additional December 07, 2021 Avulsion Plate Apr 06, 2021 Avulsion Plate Each Additional December 16, 2013 Avulsion Plate August 06, 2013 TRIM SKIN LESIONS, OVER 4 Jan 08, 2019 TRIM SKIN LESIONS, OVER 4 Feb 14, 2017 Avulsion Plate September 10, 2012 Avulsion Plate December 22, 2012 DEBRIDE NAIL, 6 OR MORE Feb 21, 2015 Avulsion Plate December 23, 2017 Avulsion Plate Each Additional December 22, 2012 Avulsion Plate Each Additional September 10, 2012 DEBRIDE NAIL, 6 OR MORE December 22, 2012 DEBRIDE NAIL, 6 OR MORE September 10, 2012 Avulsion Plate Mar 11, 2013 Avulsion Plate October 01, 2016 Avulsion Plate Each Additional December 07, 2021 DEBRIDE NAIL, 6 OR MORE December 10, 2016 TRIM SKIN LESIONS, OVER 4 Mar 08, 2016 Avulsion Plate December 16, 2013 TRIM SKIN LESIONS, OVER 4 Apr 06, 2021 TRIM SKIN LESIONS, OVER 4 August 03, 2021 DEBRIDE NAIL, 6 OR MORE Jun 20, 2020 RESULTS Name Result Date Reference Range HEMOGLOBIN A1C (GLYCOHEMOGLOBIN) 2021-01-25 TOTAL HEMOGLOBIN (HGBA1C) HEMOGLOBIN A1C (HH) HEMOGLOBIN A1C % (HH) 5.8 ESTIMATED AVG GLUCOSE HEMOGLOBIN A1C (GLYCOHEMOGLOBIN) 2020-02-25 TOTAL HEMOGLOBIN (HGBA1C) HEMOGLOBIN A1C (HH) HEMOGLOBIN A1C % (HH) 6.6 ESTIMATED AVG GLUCOSE HEMOGLOBIN A1C (GLYCOHEMOGLOBIN) 2018-12-11 TOTAL HEMOGLOBIN (HGBA1C) HEMOGLOBIN A1C (HH) HEMOGLOBIN A1C % (HH) 5.5 ESTIMATED AVG GLUCOSE Hemoglobin A1c 2017-11-25 Hemoglobin A1c 6.1 Hemoglobin A1c 2016-02-16 Hemoglobin A1c 6.5 Hemoglobin A1c 2015-02-21 Hemoglobin A1c 5.6 Hemoglobin A1c Hemoglobin A1c 6.6 REASON FOR VISIT Insurance Providers [facility] Health Member Patient Patient Patient Patient Patient Subscriber Subscriber Subscriber Group Insurance Plan Plan Plan Plan ID Relationship Address Phone Name Date of ID Name Date of No Type Insurance Insurance Insurance Coverage to Subscriber Address Phone Name Dates [employer] [phone] [employer] self [place] [id number] Medicare [place] Medicare Preferred [id number] Preferred Blue[employer] [phone] Blue[employer]ield self Gregory [id number] All Others [id number] All Others [address] [address] MEDICAL (GENERAL) HISTORY Type Description Date Medical History Arthritis Medical History back, hip, knee pain Medical History type II diabetes Medical History high blood pressure Medical History mumps Medical History chicken pox Medical History Heart disease Medical History COPD Medical History Seizures Medical History Stroke Surgical History back surgery 10/2005 Hospitalization History [facility] / Acute right Heart failure - 09/2015 Swollen legs. -4 Days [place] [facility] [place] heart [place] Hospitalization History [facility] ER - MRI back pain- blood infect ion - 09/14-10/14 stroke/seizure
--- OUTSIDE RECORDS SUMMARY | 2022-02-28 16:13 | XMS_ITS | Continuity of Care Document ---
:1960 Author Organization [facility] Address [address] [place] [address]- Care Team Providers Name Role Phone Po Per MALIK Primary Care Physician Encounter [facility] [place] Date(s): 10/09/21 - 11/08/21 [facility] [address] [place] [address] Allergies, Adverse Reactions, Alerts No Known Allergies Immunizations Given and Recorded Vaccine Date Status Refusal Reason SARS-CoV-2 mRNA (gvpgjwp-jqvc-hvigb) vax 09/08/21 Recorde d SARS-CoV-2 (COVID-19) mRNA [...] opioid drug. Start Date: 09/29/21 Status: Orderedergocalciferol 43953 iu oral capsule 50,000 International_Units, 1, capsule, By Mouth, Every 30 days, # 6 capsule, Refills 0, Maintenance, 09/29/21 11:49:00 EDT, Partial fill upon patient request if the prescription is for a schedule II opioid drug. Start Date: 09/29/21 Status: Orderedfluticasone 50 mcg/inh nasal spray 1 sprays, Nares, Both, Daily in AM, 0 Refills, Maintenance, 09/29/21 11:53:00 EDT, [place], Partial fill upon patient request if the [...]
--- OUTSIDE RECORDS SUMMARY | 2022-02-28 16:13 | XMS_ITS | Continuity of Care Document ---
:1960 Author Organization [address], [address] [place] [address]- Care Team Providers Name Role Phone Per Nunez MD Primary Care Physician En[place] [facility] [place](s): 11/28/21 - 12/05/[address], [address] [place], [place] [address] Attending Physician: Elroy Monroe MD Referring Physician: Per Nunez MD Allergies, Adverse Reactions, Alerts No Known Allergies Immunizations Given and Recorded Vaccine Date Status Refusal Reason SARS-CoV-2 mRNA (xpqtdjp-bkaj-mvvrg) vax 09/08/21 Recorde d SARS-CoV-2 (COVID-19) mRNA [...] opioid drug. Start Date: 09/29/21 Status: Orderedergocalciferol 30715 iu oral capsule 50,000 International_Units, 1, capsule, By Mouth, Every 30 days, # 6 capsule, Refills 0, Maintenance, 09/29/21 11:49:00 EDT, Partial fill upon patient request if the prescription is for a schedule II opioid drug. Start Date: 09/29/21 Status: Orderedfluticasone 50 mcg/inh nasal spray 1 sprays, Nares, Both, Daily in AM, 0 Refills, Maintenance, 09/29/21 11:53:00 EDT, [place], Partial fill upon patient request if the [...] oldest [Reference Range]: 1 Height 170 cm (11/28/21 8:54 AM) Weight 94.4 kg (11/28/21 8:54 AM) Body Mass Index [18.5-24.99] 32.66 *>HHI* (11/28/21 8:54 AM) Social History Social History Type Response Smoking Status 10 or more cigarettes (1/2 p ack or more)/day in last 30 days; Interested in cessation: Yes; Patient wants NRT during admission Yes; Type: Cigarettes; Number of years: 50; entered on: 09/29/21 Sex
--- OUTSIDE RECORDS SUMMARY | 2022-02-28 16:13 | XMS_ITS | Continuity of Care Document ---
:1960 Author Organization [facility] Address [address] [place] [address]- Care Team Providers Name Role Phone Po Per MALIK Primary Care Physician Encounter [facility] [place] Date(s): 08/30/21 - 09/29/21 [facility] [address] [place] [address] Allergies, Adverse Reactions, Alerts No Known Allergies [...]
--- OUTSIDE RECORDS SUMMARY | 2022-02-28 16:13 | XMS_ITS | Continuity of Care Document ---
:1960 Author Organization [facility] Address [address] [place] [address]- Care Team Providers Name Role Phone Po Per MALIK Primary Care Physician Encounter [facility] Date(s): 09/27/21 - 10/27/21 [facility] [address] [place] [address] Allergies, Adverse Reactions, Alerts No Known Allergies Immunizations Given and Recorded Vaccine Date Status Refusal Reason SARS-CoV-2 mRNA (ekczrir-njmm-umgsp) vax 09/08/21 Recorde d SARS-CoV-2 (COVID-19) mRNA [...] opioid drug. Start Date: 09/29/21 Status: Orderedergocalciferol 51302 iu oral capsule 50,000 International_Units, 1, capsule, By Mouth, Every 30 days, # 6 capsule, Refills 0, Maintenance, 09/29/21 11:49:00 EDT, Partial fill upon patient request if the prescription is for a schedule II opioid drug. Start Date: 09/29/21 Status: Orderedfluticasone 50 mcg/inh nasal spray 1 sprays, Nares, Both, Daily in AM, 0 Refills, Maintenance, 09/29/21 11:53:00 EDT, [place], Partial fill upon patient request if the [...]
--- OUTSIDE RECORDS SUMMARY | 2022-02-28 16:13 | XMS_ITS | Continuity of Care Document ---
:1960 Author Organization [facility] Address [address] [place] [address]- Care Team Providers Name Role Phone Po Per MALIK Primary Care Physician Encounter [facility] [place] Date(s): 09/15/21 - 11/01/[address] [address] Attending Physician: Daphney Selby MD Admitting Physician: Daphney Selby MD Referring Physician: Daphney Selby MD Allergies, Adverse Reactions, Alerts No Known Allergies Immunizations Given and Recorded Vaccine Date Status Refusal Reason SARS-CoV-2 mRNA (zrzhphs-hlou-estlt) vax 09/08/21 Recorde d SARS-CoV-2 (COVID-19) mRNA [...] opioid drug. Start Date: 09/29/21 Status: Orderedergocalciferol 85404 iu oral capsule 50,000 International_Units, 1, capsule, By Mouth, Every 30 days, # 6 capsule, Refills 0, Maintenance, 09/29/21 11:49:00 EDT, Partial fill upon patient request if the prescription is for a schedule II opioid drug. Start Date: 09/29/21 Status: Orderedfluticasone 50 mcg/inh nasal spray 1 sprays, Nares, Both, Daily in AM, 0 Refills, Maintenance, 09/29/21 11:53:00 EDT, [place], Partial fill upon patient request if the [...]
[2022-02-28 17:18] LABS: ABG Refer to POC result
[2022-02-28 17:18] LABS: ABG Base Excess -0.6 mmol/L; ABG HCO3 27 mmol/L (22-26); ABG pCO2 63 mmHg (32-45); ABG pH 7.24 (7.35-7.45); ABG pO2 331 mmHg (83-108)
[2022-02-28 17:25] LABS: MANUAL DIFF FLAG NO
[2022-02-28 17:26] LABS: Basophils Percent Auto 0.3 % (0-2); Eosinophils Absolute Auto 0.1 X10*3/uL (0.0-0.4); Eosinophils Percent Auto 1.8 % (0-4); Hematocrit 33.6 % (42.0-52.0); Hemoglobin 9.7 g/dl (14.0-18.0); Imm Gran Abs Auto 0.03 X10*3/uL (0.00-0.03); Imm Gran Pct Auto 0.4 % (0.0-0.4); Lymphocytes Absolute Auto 0.9 X10*3/uL (1.2-4.9); Lymphocytes Percent Auto 12.1 % (20-40); Mean Corpuscular HGB Conc 28.9 g/dl (31.0-36.0); Mean Corpuscular Hemoglobin 26.3 pg (27.0-33.0); Mean Corpuscular Volume 91.1 fL (80.0-98.0); Mean Platelet Volume 10.8 fL (9.4-12.4); Monocytes Absolute Auto 1.3 X10*3/uL (0.1-1.2); Monocytes Percent Auto 16.6 % (2-11); NRBC Pct Auto 0.4 /100WBC (0.0-0.2); Neutrophils Absolute Auto 5.2 x10*3/uL (2.0-8.3); Neutrophils Percent Auto 68.8 % (45-73); Platelet Count 196 X10*3/uL (160-400); Red Blood Count 3.69 X10*6/uL (4.60-5.80); Red Cell Distribution Width 18.2 % (11.0-16.0); White Blood Count 7.6 X10*3/uL (4.8-10.8)
[2022-02-28 17:35] LABS: Ammonia 30 umol/L (13-55)
[2022-02-28 17:36] LABS: D Dimer High Sensitivity 1313 NG/ML
[2022-02-28 17:42] LABS: COVID-19 Test Negative (Negative)
[2022-02-28 17:42] LABS: Lactic Acid 2.8 mmol/L (0.5-2.0)
[2022-02-28] MEDS: Furosemide 40 MG/4 ML VIAL IVPUSH (17:47)
[2022-02-28 17:48] LABS: Alanine Aminotransferase 113 U/L (0-40); Albumin Level 3.7 g/dL (3.5-5.0); Alkaline Phosphatase 65 U/L (39-117); Aspartate Amino Transferase 348 U/L (5-37); Bilirubin Total 1.6 mg/dL (0.0-1.0); Blood Urea Nitrogen 38 mg/dL (9-16); Creatinine Clr Calc Pharmacy 64.6; Estimated Glomerular Filt Rate 49; Glucose Random 118 mg/dL (60-115); Magnesium 1.6 mg/dL (1.6-2.6)
[2022-02-28 17:49] LABS: B Type Natriuretic Peptide 881 pg/mL (<100)
[2022-02-28 17:51] LABS: Anion Gap 16 (12-20); Carbon Dioxide 28 mmol/L (22-29); Chloride 104 mmol/L (96-108); Potassium 6.3 mmol/L (3.3-5.1); Sodium 142 mmol/L (135-145)
[2022-02-28 17:51] LABS: Appearance Urine Turbid; Color Urine Dark Yellow; Glucose Urine UA Negative (Negative); Leukocyte Esterase Urine Moderate (2+) (Negative); Nitrite Urine Negative (Negative); PH 5.5 (5.0-9.0); Specific Gravity - Urine 1.025 (1.005-1.025); UMIC TRIGGER UACC YES; Urine Blood Large (3+) (Negative); Urine Ketones Trace mg/dL (Negative); Urine Protein 300 (3+) mg/dL (Neg-Trace)
[2022-02-28 18:28] LABS: Bacteria Urine 4+ (None Seen); Granular Casts Urine Present; RBC Urine >20 /HPF (0-2); UACC Culture Trigger YES; WBC Urine >50 /HPF (0-5)
[2022-02-28 18:46] LABS: Troponin-I High Sensitivity 15.5 ng/L (<3.5-35.0)
[2022-02-28] MEDS: iohexoL 350 MG/ML 100 ML INFUS..BTL IV (19:21)
[2022-02-28 19:23] LABS: Reflex Lactate? Lactic Acid Added
[2022-02-28] MEDS: Dextrose 50 % 25 GM/50 ML SYRINGE IVPUSH ×2 (19:32→19:33)
[2022-02-28] MEDS: Insulin Regular, Human 100 UNIT/ML 3 ML VIAL 10 UNIT IVPUSH (19:33)
[2022-02-28] MEDS: Albuterol Sulfate 2.5 MG/0.5 ML VIAL.NEB 10 MG INHALE (19:37)
[2022-02-28] MEDS: Calcium Gluconate/NaCl,Iso-Osm 1 GM/50 ML PLAST..BAG IV (19:40)
--- NOTE | 2022-02-28 19:49 | PC.NURSE ---
unable to get O2 sat, RN is aware.
[2022-02-28] MEDS: Sodium Bicarbonate 8.4% 50 MEQ/50 ML SYRINGE IVPUSH (19:54)
[2022-02-28] MEDS: cefTRIAXone sodium 1 GM in 0.9 % Sodium Chloride 50 ML IV (19:54)
[2022-02-28 20:57] LABS: ~Lactic Acid-LAB USE ONLY 3.7 mmol/L (0.5-2.0)
--- NOTE | 2022-02-28 21:05 | PHA.MEDREC ---
Pharmacy Consult ? Medication Reconciliation Pharmacy has completed the medication reconciliation.
[2022-02-28] MEDS: Sodium Zirconium Cyclosilicate 10 GM POWD.PACK PO (21:10)
[2022-02-28] MEDS: Albuterol Sulfate 7.5 MG, Albuterol Sulfate (0.083%) 2.5 MG 10 MG INHALE (21:11)
[2022-02-28 21:18] LABS: Amphetamine Screen Urine Not Detected (Not Detect); Barbiturates, Urine Not Detected (Not Detect); Benzodiazepines Screen Urine Not Detected (Not Detect); Cannabinoid Screen Urine Not Detected (Not Detect); Cocaine Screen Urine Not Detected (Not Detect); Fentanyl, urine Not Detected (Not Detect); Opiate Screen Urine POSITIVE (Not Detect); Phencyclidine Screen Urine Not Detected (Not Detect)
--- NOTE | 2022-02-28 22:38 | PC.NURSE ---
Addendum entered by Jessica Badillo RN 02/28/22 23:20: Urine noted to have some sediment draining through. Redness, warmth, and 4+ pitting edema present bilaterally in the lower extremities. Redness marked and dated on the skin to be able to monitor any growth. Pedal pulses present with the doppler bilaterally. Pulses strong and locations marked. Original Note: I took over care of the pt at 1900 on 02/28. At that time, pt was on Bipap with RT at the bedside. We were unable to obtain an oxygen saturation but pt was warm with pink skin. Pt was very sleepy and had a hard time staying awake. However, he would wake up and answer questions appropriately before falling quickly back to sleep. Pt also had a urinary catheter placed prior to being in my care. Catheter appears to be draining adequately with yellow, non cloudy urine. Pt was complaining of no pain at that time. Pt had an IV in the right arm placed prior, I placed a second IV in the left arm. I gave medications as ordered. PO medication was delayed due to pt being on bipap. RT was able to obtain oxygen saturation of 95-100% and switched pt to high flow nasal cannula. Pt has been tolerating the high flow well and oxygen saturation has remained in the 90's. Pt was able to wake up and take PO medications, tolerating oral fluids well. When pt drank cold water, he perked up and was much more alert, able to hold full conversations with myself and RT. Pt is currently sleeping with high flow on, Hospitalist at the bedside preparing to admit pt. Pt is on continuous monitoring at this time.
[2022-02-28 22:42] LABS: Reflex Lactate? 2 Y
--- NOTE | 2022-02-28 23:22 | P.HPHOSP_ITS ---
History of Present Illness Date of Service: 02/28/22 Chief Complaint: SOB 61-year-old male with past medical history of BPH, CVA, liver cirrhosis, CHF, COPD, GERD, HLD, HTN, peripheral vascular disease, type 2 diabetes, among other past medical history of presents to the hospital with complaints of shortness of breath and abnormal labs. Shortness of breast been going on for 4 days. Patient also reported to have worsening mentation, more confused according to report. My interview patient is awake, alert, oriented to self and place. He tells me that he has been short of breath, but has no cough, and no sputum production. He reports lower extremity edema. He also endorses orthopnea and PND. Patient otherwise denies any chest pain, no palpitations, no headache or change in vision, no abdominal pain nausea or vomiting, no diarrhea constipation, no urinary symptoms and no numbness tingling or weakness. Patient was found to have a rectus sheath hematoma on imaging, when asked about it reports that he had a fall but is not remember when that fall was or how it happened. On arrival to the ED patient noted to have tachycardia with a heart rate in 119 with O2 dropping to mid 80s. Labs are significant for WBC count of 6.5, hemoglobin of 9.7, medic with a 3.6, pH of 7. Two 4 with a pCO2 of 63, patient was placed on BiPAP for several hours with improvement in his mentation Lactic acid of 2.8, total bili of 1.6, AST of 348, ALT of 113, BNP of 881, and UA that is positive for leukocyte Estrace WBC, Chest CT angiogram shows no central pulmonary embolus or large segmental pulmonary embolus. Assessment for segmental pulmonary emboli significantly limited due to motion artifact and suboptimal contrast. There is small to moderate left pleural effusion and mild atelectasis bilaterally, there is small to moderate size pericardial effusion, there is distended IVC and hepatic veins suggesting elevated right heart pressure, there is also right rectus sheath hematoma measuring 8.4 x 7 x 9.7 cm in size, General surgery was contacted regarding the hematoma, recommended no surgical intervention at this time Patient started on diuretics and will be admitted for further management Review of Systems Review of Systems: Yes all other systems are reviewed and are negative [facility] Medical History BPH (benign prostatic hyperplasia) Carpal tunnel syndrome Chronic low back pain Cirrhosis Colon cancer screening Congestive heart failure COPD (chronic obstructive pulmonary disease) COVID-19 vaccine series completed Edema of both feet GERD (gastroesophageal reflux disease) History of pulmonary embolism History of torsion of testis Hypercholesterolemia Hypertension Hypoxemia Lung density on x-ray Peripheral vascular disease Tobacco abuse Type 2 diabetes mellitus with hyperglycemia Family History Father Diabetes Hypertension CVD (cardiovascular disease) Mother Acute CVA (cerebrovascular accident) Stroke Sister Pulmonary embolism Sister Substance abuse Surgical History H/O colonoscopy History of excision of pilonidal cyst History of lumbar discectomy Hx of excision of mass Torsion, testicular Social History Housing: Apartment Alcohol intake: never Patient Tobacco Use Status: Current someday Tobacco user Tobacco use type: Cigarette Cigarettes Per Day: 3 e-Cigarette/Vaping Use: Never Used Second Hand Smoke Exposure: No Advance Directives: No Advance Directives Information Provided: No service: No Current occupational status: disabled Cognitive needs: Yes Hearing needs: No Vision needs: No Meds Allergies Allergy/AdvReac Type Severity Reaction Status Date / Time amlodipine Allergy Mild Unknown Verified 02/23/22 14:25 atorvastatin [Lipitor] Allergy Mild Unknown Verified 02/23/22 14:25 simvastatin Allergy Unknown cannot Verified 02/23/22 14:25 take due to amlodipine piperacillin [From ZOSYN] AdvReac Mild RASH Verified 02/23/22 14:25 tazobactam [From ZOSYN] AdvReac Mild RASH Verified 02/23/22 14:25 Active Medications: Current Medications Pharmacy Consult (Consult Rx Perform Med Rec) 1 each MISCELLANE ONCE PRN PRN Reason: Consult order Home Medications Medication Instructions Recorded Confirmed Last Taken Type albuterol sulfate 90 mcg/actuation 2 puff inhalation Q6H PRN 02/26/20 02/28/22 Unknown History aerosol inhaler (ProAir HFA) Shortness Of Breath cholecalciferol (vitamin D3) 25 25 mcg PO DAILY 02/26/20 02/28/22 Unknown History mcg (1,000 unit) tablet ferrous sulfate 325 mg (65 mg 325 mg PO DAILY 10/31/21 02/28/22 Unknown History iron) tablet furosemide 40 mg tablet (Lasix) 80 mg PO DAILY 02/23/22 02/28/22 Unknown History metoprolol tartrate 25 mg tablet 37.5 mg PO BID 02/23/22 02/28/22 Unknown History lisinopril 2.5 mg tablet 1 tab PO DAILY 02/28/22 02/28/22 Unknown History pantoprazole 40 mg tablet,delayed 1 tab PO DAILY 02/28/22 02/28/22 Unknown History release Physical Exam Vital Signs and Narrative: Vital Signs: Last Vital Signs Temp 97.4 F 02/28/22 21:55 Pulse 136 H 02/28/22 21:55 Resp 17 02/28/22 21:55 BP 102/66 02/28/22 21:55 Pulse Ox 94 02/28/22 21:55 O2 Del Method 02/28/22 21:55 O2 Flow Rate 4 02/28/22 16:41 FiO2 33 02/28/22 21:55 BMI result Body Mass Index 37.2 Const: General: cooperative and no acute distress Orientation/consciousness: patient oriented x3 Eyes: General: appearance normal, both eyes and all related structures Pupils: Equal, round and reactive pupils present Resp: Other: Diminished breath sounds Effort & Inspection: normal respiratory effort Cardio: Rate: regular rate Rhythm: regular rhythm GI: Palpation (GI): Soft to palpation Auscultation: normal bowel sounds Skin: General skin exam: no rashes or lesions noted Neuro: General: patient oriented x3 Cranial nerves: Yes Equal, round and reactive pupils present Cognition (Neuro): normal cognition Extrem: General: Yes normal to inspection and Yes no pedal edema Results Labs CBC and Chem 7: 02/28/22 23:27 02/28/22 23:27 Labs: Laboratory Results - last 24 hr 02/28/22 02/28/22 02/28/22 17:08 17:12 17:13 MCV MCH MCHC RDW Plt Count MPV Immature Gran % (Auto) Neut % (Auto) Lymph % (Auto) [place] % (Auto) Eos % (Auto) Baso % (Auto) Lymph # (Auto) [place] # (Auto) Eos # (Auto) Baso # (Auto) Abs Immat Gran (auto) Absolute Neuts (auto) Absolute Nucleated RBC Nucleated RBC % (auto) D-Dimer High Sensitivty 1313 O2 Saturation 99.0 ABG pH at Pt Temp 7.24 L ABG pCO2 at Pt Temp 63 H* ABG pO2 at Pt Temp 331 H ABG HCO3 27 H ABG Base Excess (Actual) -0.6 Anion Gap Estim Creat Clear Calc Estimated GFR Random Glucose Lactic Acid Lactic Acid F/U @ 2Hr Calcium Magnesium Total Bilirubin AST ALT Alkaline Phosphatase Ammonia Troponin I High Sens B-Natriuretic Peptide Total Protein Albumin Urine Color Urine Appearance Urine pH Ur Specific [place] Urine Protein Urine Glucose (UA) Urine Ketones Urine Blood Urine Nitrite Ur Leukocyte Esterase Urine RBC Urine WBC Ur Squamous Epith Cells Urine Bacteria Hyaline Casts Granular Casts Urine Opiates Screen Urine Fentanyl Screen Ur Barbiturates Screen Ur Phencyclidine Scrn Ur Amphetamines Screen U Benzodiazepines Scrn Urine Cocaine Screen U Marijuana (THC) Screen COVID-19 (EWA) Negative COVID-19 Clin Com See Note 02/28/22 02/28/22 02/28/22 17:13 17:13 17:13 MCV MCH MCHC RDW Plt Count MPV Immature Gran % (Auto) Neut % (Auto) Lymph % (Auto) [place] % (Auto) Eos % (Auto) Baso % (Auto) Lymph # (Auto) [place] # (Auto) Eos # (Auto) Baso # (Auto) Abs Immat Gran (auto) Absolute Neuts (auto) Absolute Nucleated RBC Nucleated RBC % (auto) D-Dimer High Sensitivty O2 Saturation ABG pH at Pt Temp ABG pCO2 at Pt Temp ABG pO2 at Pt Temp ABG HCO3 ABG Base Excess (Actual) Anion Gap 16 Estim Creat Clear Calc 64.6 Estimated GFR 49 Random Glucose 118 H Lactic Acid Lactic Acid F/U @ 2Hr Calcium 9.0 Magnesium 1.6 Total Bilirubin 1.6 H AST 348 H ALT 113 H Alkaline Phosphatase 65 Ammonia 30 Troponin I High Sens 15.5 B-Natriuretic Peptide 881 H Total Protein 8.0 Albumin 3.7 Urine Color Urine Appearance Urine pH Ur Specific [place] Urine Protein Urine Glucose (UA) Urine Ketones Urine Blood Urine Nitrite Ur Leukocyte Esterase Urine RBC Urine WBC Ur Squamous Epith Cells Urine Bacteria Hyaline Casts Granular Casts Urine Opiates Screen Urine Fentanyl Screen Ur Barbiturates Screen Ur Phencyclidine Scrn Ur Amphetamines Screen U Benzodiazepines Scrn Urine Cocaine Screen U Marijuana (THC) Screen COVID-19 (EWA) COVID-19 [email or web address] 02/28/22 02/28/22 02/28/22 17:13 17:18 17:30 MCV 91.1 MCH 26.3 L MCHC 28.9 L RDW 18.2 H Plt Count 196 MPV 10.8 Immature Gran % (Auto) 0.4 Neut % (Auto) 68.8 Lymph % (Auto) 12.1 L [place] % (Auto) 16.6 H Eos % (Auto) 1.8 Baso % (Auto) 0.3 Lymph # (Auto) 0.9 L [place] # (Auto) 1.3 H Eos # (Auto) 0.1 Baso # (Auto) 0.0 Abs Immat Gran (auto) 0.03 Absolute Neuts (auto) 5.2 Absolute Nucleated RBC 0.030 H Nucleated RBC % (auto) 0.4 H D-Dimer High Sensitivty O2 Saturation ABG pH at Pt Temp ABG pCO2 at Pt Temp ABG pO2 at Pt Temp ABG HCO3 ABG Base Excess (Actual) Anion Gap Estim Creat Clear Calc Estimated GFR Random Glucose Lactic Acid 2.8 H* Lactic Acid F/U @ 2Hr Calcium Magnesium Total Bilirubin AST ALT Alkaline Phosphatase Ammonia Troponin I High Sens B-Natriuretic Peptide Total Protein Albumin Urine Color Dark Yellow Urine Appearance Turbid Urine pH 5.5 Ur Specific [place] 1.025 Urine Protein 300 (3+) H Urine Glucose (UA) Negative Urine Ketones Trace Urine Blood Large (3+) H Urine Nitrite Negative Ur Leukocyte Esterase Moderate (2+) H Urine RBC >20 H Urine WBC >50 H Ur Squamous Epith Cells 3-5 Urine Bacteria 4+ Hyaline Casts 11-20 Granular Casts Present Urine Opiates Screen Urine Fentanyl Screen Ur Barbiturates Screen Ur Phencyclidine Scrn Ur Amphetamines Screen U Benzodiazepines Scrn Urine Cocaine Screen U Marijuana (THC) Screen COVID-19 (EWA) COVID-19 [email or web address] 02/28/22 02/28/22 17:30 20:38 MCV MCH MCHC RDW Plt Count MPV Immature Gran % (Auto) Neut % (Auto) Lymph % (Auto) [place] % (Auto) Eos % (Auto) Baso % (Auto) Lymph # (Auto) [place] # (Auto) Eos # (Auto) Baso # (Auto) Abs Immat Gran (auto) Absolute Neuts (auto) Absolute Nucleated RBC Nucleated RBC % (auto) D-Dimer High Sensitivty O2 Saturation ABG pH at Pt Temp ABG pCO2 at Pt Temp ABG pO2 at Pt Temp ABG HCO3 ABG Base Excess (Actual) Anion Gap Estim Creat Clear Calc Estimated GFR Random Glucose Lactic Acid Lactic Acid F/U @ 2Hr 3.7 H* Calcium Magnesium Total Bilirubin AST ALT Alkaline Phosphatase Ammonia Troponin I High Sens B-Natriuretic Peptide Total Protein Albumin Urine Color Urine Appearance Urine pH Ur Specific [place] Urine Protein Urine Glucose (UA) Urine Ketones Urine Blood Urine Nitrite Ur Leukocyte Esterase Urine RBC Urine WBC Ur Squamous Epith Cells Urine Bacteria Hyaline Casts Granular Casts Urine Opiates Screen POSITIVE H Urine Fentanyl Screen Not Detected Ur Barbiturates Screen Not Detected Ur Phencyclidine Scrn Not Detected Ur Amphetamines Screen Not Detected U Benzodiazepines Scrn Not Detected Urine Cocaine Screen Not Detected U Marijuana (THC) Screen Not Detected COVID-19 (EWA) COVID-19 Clin Com Imaging Radiologist's Impressions: Impressions Chest X-Ray 02/28/22 16:03 IMPRESSION: Limited exam due to technique. Areas of infiltrate cannot be excluded though appearance may be due to the radiographic technique. Recommend PA and lateral films when the patient is able. Abdomen/Pelvis CT 02/28/22 19:20 IMPRESSION: 1. No central pulmonary embolus or large segmental pulmonary embolus. Assessment for segmental pulmonary emboli is significantly limited due to motion artifact and suboptimal contrast opacification of more distal branches. 2. Small to moderate-sized left pleural effusion and mild atelectasis bilaterally. 3. Small to moderate-sized pericardial effusion. 4. Cardiomegaly with atrial enlargement. Reflux of contrast into the distended IVC and hepatic veins suggesting elevated right heart pressure/right heart dysfunction. Correlate clinically. 5. Mild hepatic steatosis. 6. Right rectus sheath hematoma measuring 8.4 x 7 x 9.7 cm in size. 7. Diffuse body wall edema/anasarca and small volume ascites. 8. 1.9 cm hypodense lesion in the inferior right liver lobe, indeterminate on this exam. VTE: Negative, with significant limitation as above Chest CTA 02/28/22 19:20 IMPRESSION: 1. No central pulmonary embolus or large segmental pulmonary embolus. Assessment for segmental pulmonary emboli is significantly limited due to motion artifact and suboptimal contrast opacification of more distal branches. 2. Small to moderate-sized left pleural effusion and mild atelectasis bilaterally. 3. Small to moderate-sized pericardial effusion. 4. Cardiomegaly with atrial enlargement. Reflux of contrast into the distended IVC and hepatic veins suggesting elevated right heart pressure/right heart dysfunction. Correlate clinically. 5. Mild hepatic steatosis. 6. Right rectus sheath hematoma measuring 8.4 x 7 x 9.7 cm in size. 7. Diffuse body wall edema/anasarca and small volume ascites. 8. 1.9 cm hypodense lesion in the inferior right liver lobe, indeterminate on this exam. VTE: Negative, with significant limitation as above Head CT 02/28/22 19:20 IMPRESSION: No acute intracranial pathology. Assessment and Plan (1) Acute respiratory failure with hypoxia: Status: Acute (2) Hypercapnic respiratory failure: Status: Acute (3) Acute exacerbation of CHF (congestive heart failure): Qualifiers: Heart failure type: unspecified Qualified Code(s): I50.9 - Heart failure, unspecified Status: Acute (4) Acute UTI: Status: Acute (5) Transaminitis: Status: Acute (6) Acute hyperkalemia: Status: Acute (7) SISI (acute kidney injury): Status: Acute (8) Effusion, pericardium: Status: Acute (9) Hematoma: Status: Acute Plan 61-year-old male with past medical history of COPD, CHF, among others presents to the hospital with dyspnea found to have hypercapnic hypoxic respiratory failure # acute hypoxic hypercapnic respiratory failure - secondary to CHF exacerbation in the setting of underlying COPD - patient has no cough or sputum production there for COPD exacerbation is unlikely - has elevated BNP, lower extremity edema, pleural effusion on chest CT - CT angiogram was poor study for PE therefore cannot definitely rule out PE - patient on BiPAP rule hours due to hypercapnia - will transition to nasal cannula/high-flow - will treat the underlying CHF - will obtain V/Q scan to rule out PE - monitor respiratory status # acute CHF exacerbation - patient with elevated BNP, pleural effusion, as well as PND and orthopnea - will treat with IV Lasix - strict I&O, low-sodium diet, daily weight - cardiology consulted - echocardiogram # pericardial effusion - hemodynamically stable - echocardiogram - cardia on consult # acute UTI - positive UA - will treat with IV antibiotics - follow cultures # rectus sheath hematoma - patient does report history of a fall but does not remember details around it - stable H&H - follow CBC - general surgery was consulted and did not feel the patient required any surgical intervention - if H&H continues to drop, consider reconsulting surgery # transaminitis - likely secondary to right heart strain - Lasix - follow LFTs # lactic acidosis - likely secondary to hypoxia - improving - trend # hypertension - low - hold off on antihypertensives # diabetes - low-dose sliding scale insulin - diabetic diet DVT prophylaxis: Jose Enrique Pt will require a minimum 2 night hospital stay for oxygen supplementation, IV Lasix, IV antibiotics, and further workup as mentioned above Quality Stroke Does the patient have a stroke diagnosis?: No VTE Prior VTE?: No VTE Risk Level:: Medical - moderate - high VTE Device Contraindication: Treatment Not Indicated VTE Drug Contraindication: N/A - Med Ordered
--- OUTSIDE RECORDS SUMMARY | 2022-02-28 23:26 | XMS_ITS ---
:1960 Author Name Per Nunez Care Team Providers Name Role Phone Per Nunez Unavailable Unavailable PROBLEMS Type Condition ICD9-CM [id number] Onset Condition SNOMED Cod e Code Code Dates Status Problem Other hammer M20.42 Active 6088550 [id number] toe(s) (acquired), left foot Problem Other hammer M20.41 Active 6704994 [id number] toe(s) (acquired), right foot Problem Type 2 diabetes E11.42 Active 7137 42961 mellitus with diabetic polyneuropathy ALLERGIES No Known Allergies ENCOUNTERS Encounter Location Date Diagnosis [facility] [address] Nov, [place] rowing [place] L60.0 [place] [address] Jul, Typ e 2 diabetes mellitus [place] with diabetic [address] polyneuropathy E 11.42 and Tinea unguium B3 5.1 [facility] [address] Mar, Typ e 2 diabetes mellitus [place] with diabetic [address] polyneuropathy E 11.42 ; Tinea unguium B3 5.1 and Ingrowing nail L 60.0 [facility] [address] September, [place] [address] September, [place] [address] Aug, [place] [address] [facility] [address] May, Gen eralized edema R60.1 ; [place] Other hammer to e(s) [address] (acquired), left foot M20.42 ; Xerosis cutis L85.3 ; Ingrowin g nail L60.0 ; Type 2 d iabetes mellitus with di abetic polyneuropathy E 11.42 ; Other hammer toe (s) (acquired), righ t foot M20.41 and Tinea unguium B35.1 [facility] [address] Mar, [place] [address] Jun, [place] [address] Mar, [place] [address] Dec, Typ e 2 diabetes mellitus [place] with diabetic [address] polyneuropathy E 11.42 and Tinea unguium B3 5.[address] [facility] September, [place] [address] [facility] [address] [place] [address] September, Xerosis cutis L8 5.3 ; [place] [address] Other h ammer toe(s) (acquired), righ t foot M20.41 ; Type 2 diabetes mellitus with di abetic polyneuropathy E 11.42 ; Other hammer toe (s) (acquired), left foot M20.42 and Tinea unguium B35.1 [facility] [address] [facility] [address] May, [place] [address] [facility] Feb, [place] [address] Nov, Oth er hammer toe(s) [place] KORY (acquired), rig ht foot [address] M20.41 ; Type 2 diabetes mellitus with di abetic polyneuropathy E 11.42 ; Ingrowing nail L 60.0 ; Other hammer toe (s) (acquired), left foot M20.42 and Tinea unguium B35.1 [facility] Jul, [place] [address] Jan, [place] [address] Nov, Ing rowing nail L60.0 ; [place] Type 2 diabetes mellitus [address] with diabetic polyneuropathy E 11.42 and Tinea unguium B3 5.[address] September, Ing rowing nail L60.0 ; [place] Type 2 diabetes mellitus [address] with diabetic polyneuropathy E 11.42 ; Tinea unguium B3 5.1 and Xerosis cutis L8 5.[address] Jul, [place] [address] [facility] 14 Jun, 2016 [place] [address] May, [place] [address] Feb, Tin ea unguium B35.1 ; [place] Type 2 diabetes mellitus [address] with diabetic polyneuropathy E 11.42 and Ingrowing nail L 60.[address] Dec, Tin ea unguium B35.1 ; [place] Type 2 diabetes mellitus [address] without complica tions E11.9 ; Pain in right toe(s) M79.674 a nd Pain in left toe(s) M 79.[address] Apr, [place] [address] Jan, Xer osis 706.8 ; Ingrowing [place] Nail 703.0 ; [address] Onychomycosis 11 0.1 ; Pain in Limb 729 .5 and Diabetic - NIDDM 250.00 [facility] [address] Mar, [place] [address] [facility] [address] Feb, [place] [address] [facility] [address] Nov, Saniya chomycosis 110.1 ; [place] Ingrowing Nail 703.0 ; [address] Pain in Limb 729 .5 and Diabetic - NIDDM 250.00 [facility] [address] Oct, [place] [address] [facility] [address] Jul, Saniya chomycosis 110.1 ; [place] Ingrowing Nail 703.0 ; [address] Pain in Limb 729 .5 and Diabetic - NIDDM 250.00 [facility] [address] Jun, [place] [address] [facility] [address] Feb, Saniya chomycosis 110.1 ; [place] Ingrowing Nail 703.0 ; [address] Pain in Limb 729 .5 and Diabetic - NIDDM 250.00 [facility] [address] Nov, Ing rowing Nail 703.0 ; [place] Onychomycosis 1 10.1 ; [address] Pain in Limb 729 .5 ; Diabetic - NIDDM 250.00 and Tinea Pedis 110.4 [facility] [address] Nov, [place] [address] [facility] [address] Oct, [place] [address] [facility] [address] Aug, Saniya chomycosis 110.1 ; [place] Ingrowing Nail 703.0 ; [address] Pain in Limb 729 .5 and Diabetic - NIDDM 250.00 [facility] [address] [facility] [address] 15 Aug, 2012 [place] [address] 08 May, 2012 [facility] [place] [address] Mar, [facility] [place] [address] Jan, Saniya chomycosis 110.1 ; [facility] [place] Pain in Limb 72 9.5 ; [address] Xerosis 706.8 an d Diabetic - NIDDM 250.[address] Nov, [facility] [place] [address] IMMUNIZATIONS Vaccine Route Administration Date Status COVID-19 [...] Name:Bridgette Margy [place]e , 2022-03-08 11:30:00 AM, [address] [place] [address] [place], [address], Future/Pending Procedure 75912-Jyhskxum Plate Future/Pending Procedure 39472-Rovjmqsk Plate Each Ad ditional Future/Pending Procedure 43941-CKQBIOQ NAIL, 6 OR MOR E Future/Pending Procedure 03303-PNJJ SKIN LESIONS, OVE R 4 Future/Pending Procedure 93847-JHGWWSS NAIL, 6 OR MOR E Future/Pending Procedure 10326-Pcmkcmiq Plate Future/Pending Procedure 77307-ZKHE SKIN LESIONS, OVE R 4 Future/Pending Procedure 99515-CEFMQLB NAIL, 6 OR MOR E Future/Pending Procedure 51974-Ppjsksgl Plate Future/Pending Procedure 48275-RMVO SKIN LESIONS, OVE R 4 Future/Pending Procedure 35127-HZUJTME NAIL, 6 OR MOR E Future/Pending Procedure 39046-ELIL SKIN LESIONS, OVE R 4 Future/Pending Procedure 13999-AJSTTLB NAIL, 6 OR MOR E Future/Pending Procedure 04498-XKII SKIN LESIONS, OVE R 4 Future/Pending Procedure 79767-UXGXLPA NAIL, 6 OR MOR E Future/Pending Procedure 78081-Hyeaknxt Plate Future/Pending Procedure 62907-Lofqfpde Plate Each Ad ditional Future/Pending Procedure 06968-MMFM SKIN LESIONS, OVE R 4 Future/Pending Procedure 15475-USYBEBN NAIL, 6 OR MOR E Future/Pending Procedure 88729-LPIF SKIN LESIONS, OVE R 4 Future/Pending Procedure 59250-GXGTYIW NAIL, 6 OR MOR E Future/Pending Procedure 17824-Lskhvezy Plate Future/Pending Procedure 00584-UJNA SKIN LESIONS, OVE R 4 Future/Pending Procedure 22346-YBJQKTB NAIL, 6 OR MOR E Future/Pending Procedure 79195-Kxxxpvyk Plate Future/Pending Procedure 25671-YNDR SKIN LESIONS, OVE R 4 Future/Pending Procedure 94176-HZVLINE NAIL, 6 OR MOR E Future/Pending Procedure 05310-FULJKJL NAIL, 6 OR MOR E Future/Pending Procedure 40848-Pdvinuur Plate Future/Pending Procedure 28234-Cgwfyqyl Plate Each Ad ditional Future/Pending Procedure 24687-ZHNXBDE NAIL, 6 OR MOR E Future/Pending Procedure 86542-Jzcbjblh Plate Future/Pending Procedure 13547-Frtyblgd Plate Each Ad ditional Future/Pending Procedure 49043-JYXTJFF NAIL, 6 OR MOR E Future/Pending Procedure 59702-Zhqoehmb Plate Future/Pending Procedure 64216-Vjzqokrm Plate Each Ad ditional Future/Pending Procedure 74548-GSFBYMN NAIL, 6 OR MOR E Future/Pending Procedure 79435-Oetytbwr Plate Future/Pending Procedure 68483-JXHQOFO NAIL, 6 OR MOR E Future/Pending Procedure 82407-Egfsifcz Plate Future/Pending Procedure 59826-Ulrdebvm Plate Each Ad ditional Future/Pending Procedure 31972-QBXTGGQ NAIL, 6 OR MOR E Future/Pending Procedure 33536-Lfeyfjak Plate Future/Pending Procedure 43723-Xyxugnuv Plate Each Ad ditional Future/Pending Procedure 71807-KBJHPIA NAIL, 6 OR MOR E VITAL SIGNS [...] ng Vitamin B1 Not-Taki ng Tamsulosin HCl Not-Taki ng Januvia 100 MG Orally Once a [...] PROCEDURES Procedure Date Ordered Result Body Site Avulsion Plate Each Additional December 07, 2021 DEBRIDE NAIL, 6 OR MORE October 08, 2018 DEBRIDE NAIL, 6 OR MORE Apr 06, 2021 DEBRIDE NAIL, 6 OR MORE Jan 08, 2019 DEBRIDE NAIL, 6 OR MORE December 23, 2017 DEBRIDE NAIL, 6 OR MORE August 03, 2021 DEBRIDE NAIL, 6 OR MORE Feb 07, 2012 Avulsion Plate Jun 20, 2020 DEBRIDE NAIL, 6 OR MORE August 06, 2013 Avulsion Plate December 10, 2016 Avulsion Plate Feb 21, 2015 DEBRIDE NAIL, 6 OR MORE October 01, 2016 DEBRIDE NAIL, 6 OR MORE Mar 08, 2016 Avulsion Plate Each Additional Feb 21, 2015 DEBRIDE NAIL, 6 OR MORE Dec 26, 2015 DEBRIDE NAIL, 6 OR MORE Feb 14, 2017 TRIM SKIN LESIONS, OVER 4 December 23, 2017 Avulsion Plate December 07, 2021 DEBRIDE NAIL, 6 OR MORE September 10, 2012 DEBRIDE NAIL, 6 OR MORE December 22, 2012 DEBRIDE NAIL, 6 OR MORE Mar 11, 2013 TRIM SKIN LESIONS, OVER 4 December 10, 2016 Avulsion Plate Mar 08, 2016 Avulsion Plate Apr 06, 2021 TRIM SKIN LESIONS, OVER 4 Jun 20, 2020 TRIM SKIN LESIONS, OVER 4 October 01, 2016 Avulsion Plate Each Additional December 22, 2012 Avulsion Plate Each Additional August 06, 2013 Avulsion Plate Each Additional Feb 21, 2015 TRIM SKIN LESIONS, OVER 4 October 08, 2018 Avulsion Plate Each Additional September 10, 2012 TRIM SKIN LESIONS, OVER 4 August 03, 2021 TRIM SKIN LESIONS, OVER 4 Apr 06, 2021 Avulsion Plate December 16, 2013 Avulsion Plate December 23, 2017 Avulsion Plate October 01, 2016 DEBRIDE NAIL, 6 OR MORE December 10, 2016 Avulsion Plate Each Additional December 23, 2017 Avulsion Plate Each Additional December 16, 2013 DEBRIDE NAIL, 6 OR MORE December 16, 2013 Avulsion Plate December 22, 2012 Avulsion Plate Each Additional December 07, 2021 Avulsion Plate September 10, 2012 TRIM SKIN LESIONS, OVER 4 Mar 08, 2016 Avulsion Plate August 06, 2013 DEBRIDE NAIL, 6 OR MORE Feb 21, 2015 Avulsion Plate Mar 11, 2013 TRIM SKIN LESIONS, OVER 4 Jan 08, 2019 TRIM SKIN LESIONS, OVER 4 Feb 14, 2017 DEBRIDE NAIL, 6 OR MORE Jun 20, [...] A1c 6.6 REASON FOR VISIT Insurance Providers [facility] Member Patient Patient Patient Patient Patient Subscriber Subscriber Subscriber Group Insurance Plan Plan Plan Plan ID Relationship Address Phone Name Date of ID Name Date of No Type Insurance Insurance Insurance Coverage to Subscriber Address Phone Name Dates [employer] [phone] [employer] self Gregory 19 [id number] All Others [id number] All Others [facility] [address] [employer] [phone] [employer] self Gregory [id number] [phone] [id number] [phone] [id number] [place] 4 Medicare [place] Medicare Preferred [id number] Preferred MEDICAL (GENERAL) HISTORY Type Description Date Medical History Arthritis Medical History back, hip, knee pain Medical History type II diabetes Medical History high blood pressure Medical History mumps Medical History chicken pox Medical History Heart disease Medical History COPD Medical History Seizures Medical History Stroke Surgical History back surgery 10/2005 [facility] Acute right Heart failure - 09/2015 Swollen legs. -4 Days Hospitalization History [facility] ICU right side heart failure Hospitalization History [facility] ER - MRI back pain- blood infect ion - 09/14-10/14 stroke/seizure
[2022-02-28 23:38] LABS: Basophils Percent Auto 0.3 % (0-2); Eosinophils Absolute Auto 0.1 X10*3/uL (0.0-0.4); Eosinophils Percent Auto 1.4 % (0-4); Hematocrit 30.3 % (42.0-52.0); Hemoglobin 8.9 g/dl (14.0-18.0); Imm Gran Abs Auto 0.02 X10*3/uL (0.00-0.03); Imm Gran Pct Auto 0.3 % (0.0-0.4); Lymphocytes Absolute Auto 0.8 X10*3/uL (1.2-4.9); Lymphocytes Percent Auto 12.2 % (20-40); MANUAL DIFF FLAG SCAN; Mean Corpuscular HGB Conc 29.4 g/dl (31.0-36.0); Mean Corpuscular Hemoglobin 26.5 pg (27.0-33.0); Mean Corpuscular Volume 90.2 fL (80.0-98.0); Mean Platelet Volume 10.7 fL (9.4-12.4); Monocytes Absolute Auto 1.4 X10*3/uL (0.1-1.2); Monocytes Percent Auto 21.2 % (2-11); NRBC Pct Auto 0.6 /100WBC (0.0-0.2); Neutrophils Absolute Auto 4.2 x10*3/uL (2.0-8.3); Neutrophils Percent Auto 64.6 % (45-73); Platelet Count 157 X10*3/uL (160-400); Red Blood Count 3.36 X10*6/uL (4.60-5.80); Red Cell Distribution Width 18.2 % (11.0-16.0); SCAN SMEAR FLAG 1; White Blood Count 6.5 X10*3/uL (4.8-10.8)
[2022-02-28 23:39] LABS: Venous Blood Gas Refer to POC result
[2022-02-28 23:41] LABS: VBG Base Excess 3.3 mmol/L; VBG HCO3 31 mmol/L (22-26); VBG pCO2 67 mmHg; VBG pH 7.27 (7.32-7.43); VBG pO2 51 mmHg
[2022-02-28 23:57] LABS: SLIDE REVIEW VERIFIED
[2022-03-01] VITALS (11 sets, daily range): BP systolic 93–109; BP diastolic 49–77; PULSE 139–146; RESP 16–22; TEMP 37.2–37.4; O2SAT 91–97
--- NOTE | 2022-03-01 | ECG_ITS ---
Test Reason : cp Blood Pressure : / mmHG Vent. Rate : 143 BPM Atrial Rate : 000 BPM P-R Int : 000 ms QRS Dur : 138 ms QT Int : 328 ms P-R-T Axes : 000 076 -21 degrees QTc Int : 506 ms Wide QRS tachycardia with Premature ventricular complexes or Fusion complexes Right bundle branch block Septal infarct , age undetermined Abnormal ECG When compared with ECG of 28-FEB-2022 17:37, Fusion complexes are now Present Premature ventricular complexes are now Present Referred By: Luis Armando Renteria Electronically Signed By:MARCEL RIZVI
[2022-03-01 00:22] LABS: Anion Gap 15 (12-20); Blood Urea Nitrogen 39 mg/dL (9-16); Carbon Dioxide 29 mmol/L (22-29); Chloride 105 mmol/L (96-108); Sodium 144 mmol/L (135-145)
[2022-03-01 00:23] LABS: Alanine Aminotransferase 115 U/L (0-40); Albumin Level 3.4 g/dL (3.5-5.0); Alkaline Phosphatase 59 U/L (39-117); Aspartate Amino Transferase 345 U/L (5-37); Bilirubin Total 1.4 mg/dL (0.0-1.0); Calcium 8.8 mg/dL (8.4-10.2); Creatinine Clr Calc Pharmacy 66.4; Estimated Glomerular Filt Rate 51; Glucose Random 109 mg/dL (60-115); Total Protein 7.2 g/dL (6.5-8.0)
[2022-03-01] MEDS: 0.9 % Sodium Chloride Flush 3 ML SYRINGE IVFLUSH ×2 (00:42→08:28)
[2022-03-01 00:45] LABS: ~Lactic Acid-LAB USE ONLY 2.6 mmol/L (0.5-2.0)
--- NOTE | 2022-03-01 07:00 | CA_ITS ---
Transthoracic Echocardiogram Patient (Last, First, Middle): Gregory Bell A Gender: Male Date of : 1960 Age: 61 Procedure Date: 03/01/2022 Procedure Type: Transthoracic Echocardiogram Location: ER Height: 172.72 cm Weight: 110.68 kg BSA: 2.22 m2 Heart Rate: 142 bpm BP: 101 / 66 mmHg Borough Coordinator: SB Referring MD: Roma Sandoval MD Government Operations Consultant: Stanford Saavedra MD Symptoms: CHF Study Quality: Technically Difficult but adequate study ECG Rhythm: Tachycardia Conclusions: - 1. Low normal LV systolic function with flattening of interventricular septum consistent with RV pressure and volume overload. Diastolic function is not possible on this study due to tachycardia 2. Biatrial enlargement, right atrium greater than left atrium 3. Severely dilated right ventricle with moderate systolic dysfunction 4. Severely thickened anterior and posterior mitral leaflet with at least moderate to severe mitral regurgitation although could be underestimated due to shadowing. Consider WARREN 5. Moderate to severe tricuspid regurgitation 6. Severely elevated right atrial pressures with moderate to severe elevation of right ventricular systolic pressure 7. Moderate pericardial effusion Findings Left Ventricle Normal left ventricular cavity size. There is normal left ventricular wall thickness. The left ventricular systolic function is low normal. The visually estimated ejection fraction is between 50-55%. There is a flattened septum in diastole ( D shaped left ventricle) consistent with right ventricular volume overload and a flattened septum in systole consistent with right ventricular pressure overload. Diastolic function is indeterminate on the basis of available data. Right Ventricle Severely increased right ventricular cavity size. There is moderately decreased right ventricular systolic function. Atria The left atrium is moderately dilated. Interatrial shunt cannot be excluded. The right atrium is severely dilated. Aortic Valve The aortic valve was not well visualized. There is no aortic valve regurgitation. Mitral Valve There is severe anterior and posterior mitral leaflet thickening. There is moderate to severe mitral valve regurgitation. There is no mitral valve stenosis. Pulmonic Valve The pulmonic valve was not well visualized. Tricuspid Valve Likely normal tricuspid valve structure and function. There is moderate to severe tricuspid valve regurgitation. Significantly elevated right atrial pressure. Moderate to severe pulmonary hypertension is present. Great Vessels The aorta was not well visualized. The pulmonary artery was not well visualized. Venous The inferior vena cava is moderately dilated and does not collapse with inspiration. Pericardium/Pleural There is a moderate circumferential pericardial effusion. Prior Study Comparison Significant changes compared to prior study dated: 11/22/2018. there is moderate to severe mitral regurgitation and tricuspid regurgitation with significantly elevated right ventricular systolic pressure. Measurements 2D Linear Measurements IVSd: 0.85 0.6-0.9/0.6-1.0 cm LVIDd: 4.37 3.9-5.3/4.2-5.9 cm LVIDd Index: 1.97 2.4-3.2/2.2-3.1 cm/m2 LVIDs: 3.20 2.0-3.6 cm LVPWd: 1.06 0.7-1.1 cm LA Diam: 5.20 2.7-3.8/3.0-4.0 cm LAIDs Index: 2.34 1.5-2.3 cm/m2 LV Mass: 170.67 67-162/88-224 g LV Mass Index: 76.88 43-95/49-115 g/m2 LVOT Diam: 1.90 3.0+(-)1.3 cm Mitral Valve MV VTI: 0.27 MV Pk Vikram: 2.36 MV Mn Vikram: 1.62 MV Pk Grad: 22.00 MV Mn Grad: 13.00 MV Pk E: 2.21 MVA Continuity: 1.34 MR VTI: 0.96 Aortic Valve AoV Pk Vikram: 1.67 AoV Mn Vikram: 1.21 AoV VTI: 0.25 AoV Pk Grad: 11.00 Aov Mn Grad: 7.00 LOLY Cont.VTI: 1.42 LVOT LVOT Pk Vikram: 0.92 LVOT Mn Vikram: 0.61 LVOT VTI: 0.13 LVOT Pk Grad: 3.00 LVOT Mn Grad: 2.00 LVOT Diam: 1.90 LVOT Area: 2.84 Diastolic Function MV Pk E: 2.21 Right Ventricle TAPSE (mm): 12.60 TVS' Vikram: 13.30 Tricuspid Valve TR Pk Vikram: 3.60 TR Pk Grad: 52.00 RA Press: 15.00 RVSP: 67.00 Great Vessels Aorta Sinus of Valsalva: 3.40 2.0-3.5 cm Pulmonary Valve PV Pk Vikram: 0.94 Peak PV Grad: 4.00 Updated in Other Vendor System with Status of Final Stanford Saavedra MD electronically signed on 03/01/2022 3:01:33 PM with status of Final
[2022-03-01 07:01] LABS: Basophils Percent Auto 0.5 % (0-2); Eosinophils Absolute Auto 0.2 X10*3/uL (0.0-0.4); Eosinophils Percent Auto 3.1 % (0-4); Hematocrit 29.6 % (42.0-52.0); Hemoglobin 8.5 g/dl (14.0-18.0); Imm Gran Abs Auto 0.02 X10*3/uL (0.00-0.03); Imm Gran Pct Auto 0.3 % (0.0-0.4); Lymphocytes Absolute Auto 0.8 X10*3/uL (1.2-4.9); Lymphocytes Percent Auto 9.8 % (20-40); MANUAL DIFF FLAG SCAN; Mean Corpuscular HGB Conc 28.7 g/dl (31.0-36.0); Mean Corpuscular Hemoglobin 26.2 pg (27.0-33.0); Mean Corpuscular Volume 91.1 fL (80.0-98.0); Mean Platelet Volume 11.4 fL (9.4-12.4); Monocytes Absolute Auto 1.6 X10*3/uL (0.1-1.2); Monocytes Percent Auto 20.3 % (2-11); NRBC Pct Auto 0.3 /100WBC (0.0-0.2); Neutrophils Absolute Auto 5.1 x10*3/uL (2.0-8.3); Platelet Count 155 X10*3/uL (160-400); Red Blood Count 3.25 X10*6/uL (4.60-5.80); Red Cell Distribution Width 18.4 % (11.0-16.0); SCAN SMEAR FLAG 1; White Blood Count 7.8 X10*3/uL (4.8-10.8)
[2022-03-01 07:07] LABS: Glucose, Whole Blood 83 mg/dL (60-115)
[2022-03-01 07:10] LABS: Lactic Acid 2.9 mmol/L (0.5-2.0)
[2022-03-01 07:29] LABS: Anion Gap 16 (12-20); Blood Urea Nitrogen 39 mg/dL (9-16); Calcium 9.3 mg/dL (8.4-10.2); Carbon Dioxide 27 mmol/L (22-29); Chloride 103 mmol/L (96-108); Estimated Glomerular Filt Rate 55; Glucose Random 91 mg/dL (60-115); Potassium 5.2 mmol/L (3.3-5.1); Sodium 141 mmol/L (135-145)
--- NOTE | 2022-03-01 07:31 | PC.NURSE ---
Pt is A/O X 3. Pupils are PERRLA. O2 Stat 88-92%.Pt is speaking in full sentences. Lung sounds diminished on the MALLY lobe and wheezes on the RUl. Heart sounds are rapid at 141 on the monitor. Skin is pink, warm and dry. Extreme Redness, swelling and non pitting edema on both legs. Pedal pulses present on the Doppler. Abdomen is obese, non-tender, Bowel sound present in all quads. Pt aware of plan of care. Hospitalist aware of lactic of 2.9.
[2022-03-01] MEDS: Metoprolol Tartrate 12.5 MG HALFTAB 37.5 MG PO (08:00)
[2022-03-01] MEDS: Tamsulosin HCL 0.4 MG CAPSULE PO (08:00)
[2022-03-01] MEDS: Cholecalciferol (Vitamin D3) 25 MCG TABLET PO (08:00)
[2022-03-01] MEDS: DULoxetine HCl 60 MG CAPSULE.DR PO (08:01)
[2022-03-01] MEDS: Omeprazole 20 MG CAPSULE.DR PO (08:01)
[2022-03-01] MEDS: Apixaban 5 MG TABLET PO (08:01)
[2022-03-01] MEDS: Ferrous Sulfate 324 MG TABLET.DR 325 MG PO (08:02)
[2022-03-01] MEDS: Furosemide 40 MG/4 ML VIAL IVPUSH (08:02)
--- NOTE | 2022-03-01 08:17 | PC.NURSE ---
RT attempted to stwitch from BIPAP to High flow, unsuccessful, o2 stat at 84. Placed back on Bipap18/8, stat @ 100.
--- NOTE | 2022-03-01 08:21 | PC.NURSE ---
Hospitalist and RT at the bedside. Pt placed on High flow , pradhan on 12 L, unsuccessful, pt returned to BIPAP 18/8 on 35% o2. Pt aware of plan of care. Pt given with water.
--- NOTE | 2022-03-01 08:45 | PC.NURSE ---
DR. CROCKETT AT BEDSIDE PT AWARE OF PLAN OF CARE.
--- NOTE | 2022-03-01 08:53 | HO.PM.IMPN ---
Subjective Subjective Date of Service: 03/01/22 Physical Exam Vital Signs: Vital Signs: Last Vital Signs Temp 99.3 F 03/01/22 08:00 Pulse 141 H 03/01/22 08:00 Resp 18 03/01/22 08:23 BP 109/77 03/01/22 08:00 Pulse Ox 91 L 03/01/22 08:00 O2 Del Method 03/01/22 08:00 O2 Flow Rate 35 03/01/22 08:00 FiO2 33 02/28/22 21:55 BMI result Body Mass Index 37.2 Objective Data Active Medications Acetaminophen (Acetaminophen 325 Mg Tablet) 650 mg PO Q6H PRN PRN Reason: Pain, Mild (Pain Scale 1-3) Albuterol Sulfate (Albuterol Sulfate 90 Mcg 8 Gm Inhaler) 2 puff INHALE Q6H PRN PRN Reason: Shortness Of Breath Apixaban (Apixaban 5 Mg Tablet) 5 mg PO BID [facility] Last Admin: 03/01/22 08:01 Dose: 5 mg Documented By: MATHIEU Dextrose (Dextrose 50 % 25 Gm/50 Ml Syringe) 25 gm IVPUSH Q15M PRN; Protocol PRN Reason: per Hypoglycemia Standing Ord. Docusate Sodium (Docusate Sodium 100 Mg Capsule) 100 mg PO DAILY PRN PRN Reason: Constipation Duloxetine HCl (Duloxetine Hcl 60 Mg Capsule.) 60 mg PO DAILY [facility] Last Admin: 03/01/22 08:01 Dose: 60 mg Documented By: MATHIEU Ferrous Sulfate (Ferrous Sulfate 324 Mg Tablet.) 325 mg PO DAILY [facility] Last Admin: 03/01/22 08:02 Dose: 325 mg Documented By: MATHIEU Fluticasone Propionate (Fluticasone Propionate Nasal 16 Gm Stuart) 1 spray NOSTRIL-B DAILY [facility] Last Admin: 03/01/22 08:29 Dose: Not Given Documented By: MATHIEU Non-Admin Reason: not at bedside Fluticasone/Vilanterol (Fluticasone/Vilanterol 200/25 Blst.W.Dev) 1 puff INHALE RDAILY [facility] Last Admin: 03/01/22 08:26 Dose: Not Given Documented By: MATHIEU Non-Admin Reason: not at bedside Furosemide (Furosemide 40 Mg/4 Ml Vial) 40 mg IVPUSH BIDWM [facility]; Protocol Last Admin: 03/01/22 08:02 Dose: 40 mg Documented By: MATHIEU Glucose (Glucose Gel 15 Gm Gel..Gram.) 15 gm PO Q15M PRN; Protocol PRN Reason: per Hypoglycemia Standing Ord. Ceftriaxone Sodium 1 gm/ (Sodium Chloride) 50 mls @ 100 mls/hr IV Q24H [facility] Insulin Human Lispro (Insulin Lispro 100 Unit/Ml 3 Ml Vial) 0 unit SUBCUT QIDACHS [facility]; Protocol Last Admin: 03/01/22 08:25 Dose: Not Given Documented By: MATHIEU Non-Admin Reason: No Insulin Coverage Lactulose (Lactulose 20 Gm/30 Ml Solution) 20 gm PO TID PRN PRN Reason: laxative effect Metoprolol Tartrate (Metoprolol Tartrate 12.5 Mg Halftab) 37.5 mg PO BID [facility]; Protocol Last Admin: 03/01/22 08:00 Dose: 37.5 mg Documented By: MATHIEU Non-Formulary Medication (Rosuvastatin) 5 mg PO DAILY [facility] Nystatin (Nystatin Powder 15 Gm Bottle) 1 appl TOPICAL TID [facility]; Protocol Last Admin: 03/01/22 08:26 Dose: Not Given Documented By: MATHIEU Non-Admin Reason: not at bedside Omeprazole (Omeprazole 20 Mg Capsule.) 20 mg PO DAILY@0630 [facility] Last Admin: 03/01/22 08:01 Dose: 20 mg Documented By: MATHIEU Ondansetron HCl (Ondansetron Hcl 4 Mg/2 Ml Vial) 4 mg IVPUSH Q8H PRN PRN Reason: Nausea and Vomiting Oxycodone HCl (Oxycodone Hcl Immed Release 5 Mg Tablet) 5 mg PO Q6H PRN PRN Reason: pain Pharmacy Consult (Consult Rx Perform Med Rec) 1 each MISCELLANE ONCE PRN PRN Reason: Consult order Sodium Chloride (0.9 % Sodium Chloride Flush 3 Ml Syringe) 3 ml IVFLUSH QSHIFT [facility] Last Admin: 03/01/22 08:28 Dose: 3 ml Documented By: MATHIEU Tamsulosin HCl (Tamsulosin Hcl 0.4 Mg Capsule) 0.4 mg PO DAILY [facility] Last Admin: 03/01/22 08:00 Dose: 0.4 mg Documented By: MATHIEU Vitamin D (Cholecalciferol (Vitamin D3) 25 Mcg Tablet) 25 mcg PO DAILY [facility] Last Admin: 03/01/22 08:00 Dose: 25 mcg Documented By: MATHIEU Labs CBC & Chem 7: 03/01/22 06:48 03/01/22 06:48 Labs: Laboratory Results - last 24 hr 02/28/22 02/28/22 02/28/22 17:08 17:12 17:13 MCV MCH MCHC RDW Plt Count MPV Immature Gran % (Auto) Neut % (Auto) Lymph % (Auto) [place] % (Auto) Eos % (Auto) Baso % (Auto) Lymph # (Auto) [place] # (Auto) Eos # (Auto) Baso # (Auto) Abs Immat Gran (auto) Absolute Neuts (auto) Absolute Nucleated RBC Nucleated RBC % (auto) Smear Tech's Comments D-Dimer High Sensitivty 1313 O2 Saturation 99.0 ABG pH at Pt Temp 7.24 L ABG pCO2 at Pt Temp 63 H* ABG pO2 at Pt Temp 331 H ABG HCO3 27 H ABG Base Excess (Actual) -0.6 VBG pH VBG pCO2 VBG pO2 VBG HCO3 VBG O2 Saturation VBG Base Excess Anion Gap Estim Creat Clear Calc Estimated GFR POC Glucose Random Glucose Lactic Acid Lactic Acid F/U @ 2Hr Lactic Acid F/U @ 4Hr Calcium Magnesium Total Bilirubin AST ALT Alkaline Phosphatase Ammonia Troponin I High Sens B-Natriuretic Peptide Total Protein Albumin Urine Color Urine Appearance Urine pH Ur Specific [place] Urine Protein Urine Glucose (UA) Urine Ketones Urine Blood Urine Nitrite Ur Leukocyte Esterase Urine RBC Urine WBC Ur Squamous Epith Cells Urine Bacteria Hyaline Casts Granular Casts Urine Opiates Screen Urine Fentanyl Screen Ur Barbiturates Screen Ur Phencyclidine Scrn Ur Amphetamines Screen U Benzodiazepines Scrn Urine Cocaine Screen U Marijuana (THC) Screen COVID-19 (EWA) Negative COVID-19 Clin Com See Note 02/28/22 02/28/22 02/28/22 17:13 17:13 17:13 MCV MCH MCHC RDW Plt Count MPV Immature Gran % (Auto) Neut % (Auto) Lymph % (Auto) [place] % (Auto) Eos % (Auto) Baso % (Auto) Lymph # (Auto) [place] # (Auto) Eos # (Auto) Baso # (Auto) Abs Immat Gran (auto) Absolute Neuts (auto) Absolute Nucleated RBC Nucleated RBC % (auto) Smear Tech's Comments D-Dimer High Sensitivty O2 Saturation ABG pH at Pt Temp ABG pCO2 at Pt Temp ABG pO2 at Pt Temp ABG HCO3 ABG Base Excess (Actual) VBG pH VBG pCO2 VBG pO2 VBG HCO3 VBG O2 Saturation VBG Base Excess Anion Gap 16 Estim Creat Clear Calc 64.6 Estimated GFR 49 POC Glucose Random Glucose 118 H Lactic Acid Lactic Acid F/U @ 2Hr Lactic Acid F/U @ 4Hr Calcium 9.0 Magnesium 1.6 Total Bilirubin 1.6 H AST 348 H ALT 113 H Alkaline Phosphatase 65 Ammonia 30 Troponin I High Sens 15.5 B-Natriuretic Peptide 881 H Total Protein 8.0 Albumin 3.7 Urine Color Urine Appearance Urine pH Ur Specific [place] Urine Protein Urine Glucose (UA) Urine Ketones Urine Blood Urine Nitrite Ur Leukocyte Esterase Urine RBC Urine WBC Ur Squamous Epith Cells Urine Bacteria Hyaline Casts Granular Casts Urine Opiates Screen Urine Fentanyl Screen Ur Barbiturates Screen Ur Phencyclidine Scrn Ur Amphetamines Screen U Benzodiazepines Scrn Urine Cocaine Screen U Marijuana (THC) Screen COVID-19 (EWA) COVID-19 Clin Com 02/28/22 02/28/22 02/28/22 17:13 17:18 17:30 MCV 91.1 MCH 26.3 L MCHC 28.9 L RDW 18.2 H Plt Count 196 MPV 10.8 Immature Gran % (Auto) 0.4 Neut % (Auto) 68.8 Lymph % (Auto) 12.1 L [place] % (Auto) 16.6 H Eos % (Auto) 1.8 Baso % (Auto) 0.3 Lymph # (Auto) 0.9 L [place] # (Auto) 1.3 H Eos # (Auto) 0.1 Baso # (Auto) 0.0 Abs Immat Gran (auto) 0.03 Absolute Neuts (auto) 5.2 Absolute Nucleated RBC 0.030 H Nucleated RBC % (auto) 0.4 H Smear Tech's Comments D-Dimer High Sensitivty O2 Saturation ABG pH at Pt Temp ABG pCO2 at Pt Temp ABG pO2 at Pt Temp ABG HCO3 ABG Base Excess (Actual) VBG pH VBG pCO2 VBG pO2 VBG HCO3 VBG O2 Saturation VBG Base Excess Anion Gap Estim Creat Clear Calc Estimated GFR POC Glucose Random Glucose Lactic Acid 2.8 H* Lactic Acid F/U @ 2Hr Lactic Acid F/U @ 4Hr Calcium Magnesium Total Bilirubin AST ALT Alkaline Phosphatase Ammonia Troponin I High Sens B-Natriuretic Peptide Total Protein Albumin Urine Color Dark Yellow Urine Appearance Turbid Urine pH 5.5 Ur Specific [place] 1.025 Urine Protein 300 (3+) H Urine Glucose (UA) Negative Urine Ketones Trace Urine Blood Large (3+) H Urine Nitrite Negative Ur Leukocyte Esterase Moderate (2+) H Urine RBC >20 H Urine WBC >50 H Ur Squamous Epith Cells 3-5 Urine Bacteria 4+ Hyaline Casts 11-20 Granular Casts Present Urine Opiates Screen Urine Fentanyl Screen Ur Barbiturates Screen Ur Phencyclidine Scrn Ur Amphetamines Screen U Benzodiazepines Scrn Urine Cocaine Screen U Marijuana (THC) Screen COVID-19 (EWA) COVID-19 Clin Com 02/28/22 02/28/22 02/28/22 17:30 20:38 23:27 MCV 90.2 MCH 26.5 L MCHC 29.4 L RDW 18.2 H Plt Count 157 L MPV 10.7 Immature Gran % (Auto) 0.3 Neut % (Auto) 64.6 Lymph % (Auto) 12.2 L [place] % (Auto) 21.2 H Eos % (Auto) 1.4 Baso % (Auto) 0.3 Lymph # (Auto) 0.8 L [place] # (Auto) 1.4 H Eos # (Auto) 0.1 Baso # (Auto) 0.0 Abs Immat Gran (auto) 0.02 Absolute Neuts (auto) 4.2 Absolute Nucleated RBC 0.040 H Nucleated RBC % (auto) 0.6 H Smear Tech's Comments VERIFIED D-Dimer High Sensitivty O2 Saturation ABG pH at Pt Temp ABG pCO2 at Pt Temp ABG pO2 at Pt Temp ABG HCO3 ABG Base Excess (Actual) VBG pH VBG pCO2 VBG pO2 VBG HCO3 VBG O2 Saturation VBG Base Excess Anion Gap Estim Creat Clear Calc Estimated GFR POC Glucose Random Glucose Lactic Acid Lactic Acid F/U @ 2Hr 3.7 H* Lactic Acid F/U @ 4Hr Calcium Magnesium Total Bilirubin AST ALT Alkaline Phosphatase Ammonia Troponin I High Sens B-Natriuretic Peptide Total Protein Albumin Urine Color Urine Appearance Urine pH Ur Specific [place] Urine Protein Urine Glucose (UA) Urine Ketones Urine Blood Urine Nitrite Ur Leukocyte Esterase Urine RBC Urine WBC Ur Squamous Epith Cells Urine Bacteria Hyaline Casts Granular Casts Urine Opiates Screen POSITIVE H Urine Fentanyl Screen Not Detected Ur Barbiturates Screen Not Detected Ur Phencyclidine Scrn Not Detected Ur Amphetamines Screen Not Detected U Benzodiazepines Scrn Not Detected Urine Cocaine Screen Not Detected U Marijuana (THC) Screen Not Detected COVID-19 (EWA) COVID-19 [employer] Com 02/28/22 02/28/22 02/28/22 23:27 23:27 23:33 MCV MCH MCHC RDW Plt Count MPV Immature Gran % (Auto) Neut % (Auto) Lymph % (Auto) [place] % (Auto) Eos % (Auto) Baso % (Auto) Lymph # (Auto) [place] # (Auto) Eos # (Auto) Baso # (Auto) Abs Immat Gran (auto) Absolute Neuts (auto) Absolute Nucleated RBC Nucleated RBC % (auto) Smear Tech's Comments D-Dimer High Sensitivty O2 Saturation ABG pH at Pt Temp ABG pCO2 at Pt Temp ABG pO2 at Pt Temp ABG HCO3 ABG Base Excess (Actual) VBG pH 7.27 L VBG pCO2 67 VBG pO2 51 VBG HCO3 31 H VBG O2 Saturation 77.0 VBG Base Excess 3.3 Anion Gap 15 Estim Creat Clear Calc 66.4 Estimated GFR 51 POC Glucose Random Glucose 109 Lactic Acid Lactic Acid F/U @ 2Hr Lactic Acid F/U @ 4Hr 2.6 H* Calcium 8.8 Magnesium Total Bilirubin 1.4 H AST 345 H ALT 115 H Alkaline Phosphatase 59 Ammonia Troponin I High Sens B-Natriuretic Peptide Total Protein 7.2 Albumin 3.4 L Urine Color Urine Appearance Urine pH Ur Specific [place] Urine Protein Urine Glucose (UA) Urine Ketones Urine Blood Urine Nitrite Ur Leukocyte Esterase Urine RBC Urine WBC Ur Squamous Epith Cells Urine Bacteria Hyaline Casts Granular Casts Urine Opiates Screen Urine Fentanyl Screen Ur Barbiturates Screen Ur Phencyclidine Scrn Ur Amphetamines Screen U Benzodiazepines Scrn Urine Cocaine Screen U Marijuana (THC) Screen COVID-19 (EWA) COVID-19 Clin Com 03/01/22 03/01/22 03/01/22 06:48 06:48 06:48 MCV 91.1 MCH 26.2 L MCHC 28.7 L RDW 18.4 H Plt Count 155 L MPV 11.4 Immature Gran % (Auto) 0.3 Neut % (Auto) 66.0 Lymph % (Auto) 9.8 L [place] % (Auto) 20.3 H Eos % (Auto) 3.1 Baso % (Auto) 0.5 Lymph # (Auto) 0.8 L [place] # (Auto) 1.6 H Eos # (Auto) 0.2 Baso # (Auto) 0.0 Abs Immat Gran (auto) 0.02 Absolute Neuts (auto) 5.1 Absolute Nucleated RBC 0.020 H Nucleated RBC % (auto) 0.3 H Smear Tech's Comments D-Dimer High Sensitivty O2 Saturation ABG pH at Pt Temp ABG pCO2 at Pt Temp ABG pO2 at Pt Temp ABG HCO3 ABG Base Excess (Actual) VBG pH VBG pCO2 VBG pO2 VBG HCO3 VBG O2 Saturation VBG Base Excess Anion Gap 16 Estim Creat Clear Calc 71.0 Estimated GFR 55 POC Glucose Random Glucose 91 Lactic Acid 2.9 H* Lactic Acid F/U @ 2Hr Lactic Acid F/U @ 4Hr Calcium 9.3 Magnesium Total Bilirubin AST ALT Alkaline Phosphatase Ammonia Troponin I High Sens B-Natriuretic Peptide Total Protein Albumin Urine Color Urine Appearance Urine pH Ur Specific [place] Urine Protein Urine Glucose (UA) Urine Ketones Urine Blood Urine Nitrite Ur Leukocyte Esterase Urine RBC Urine WBC Ur Squamous Epith Cells Urine Bacteria Hyaline Casts Granular Casts Urine Opiates Screen Urine Fentanyl Screen Ur Barbiturates Screen Ur Phencyclidine Scrn Ur Amphetamines Screen U Benzodiazepines Scrn Urine Cocaine Screen U Marijuana (THC) Screen COVID-19 (EWA) COVID-19 Clin Com 03/01/22 06:57 MCV MCH MCHC RDW Plt Count MPV Immature Gran % (Auto) Neut % (Auto) Lymph % (Auto) [place] % (Auto) Eos % (Auto) Baso % (Auto) Lymph # (Auto) [place] # (Auto) Eos # (Auto) Baso # (Auto) Abs Immat Gran (auto) Absolute Neuts (auto) Absolute Nucleated RBC Nucleated RBC % (auto) Smear Tech's Comments D-Dimer High Sensitivty O2 Saturation ABG pH at Pt Temp ABG pCO2 at Pt Temp ABG pO2 at Pt Temp ABG HCO3 ABG Base Excess (Actual) VBG pH VBG pCO2 VBG pO2 VBG HCO3 VBG O2 Saturation VBG Base Excess Anion Gap Estim Creat Clear Calc Estimated GFR POC Glucose 83 Random Glucose Lactic Acid Lactic Acid F/U @ 2Hr Lactic Acid F/U @ 4Hr Calcium Magnesium Total Bilirubin AST ALT Alkaline Phosphatase Ammonia Troponin I High Sens B-Natriuretic Peptide Total Protein Albumin Urine Color Urine Appearance Urine pH Ur Specific [place] Urine Protein Urine Glucose (UA) Urine Ketones Urine Blood Urine Nitrite Ur Leukocyte Esterase Urine RBC Urine WBC Ur Squamous Epith Cells Urine Bacteria Hyaline Casts Granular Casts Urine Opiates Screen Urine Fentanyl Screen Ur Barbiturates Screen Ur Phencyclidine Scrn Ur Amphetamines Screen U Benzodiazepines Scrn Urine Cocaine Screen U Marijuana (THC) Screen COVID-19 (EWA) COVID-19 Clin Com Assessment and Plan (1) Hypercapnic respiratory failure: Status: Acute (2) Acute exacerbation of CHF (congestive heart failure): Status: Acute Plan 61-year-old male with past medical history of COPD, CHF, among others presents to the hospital with dyspnea found to have hypercapnic hypoxic respiratory failure and right heart failure compliated by encephalopathy # Acute hypoxic hypercapnic respiratory failure - secondary to right sided heart failure and underlying COPD, CT angio poor study but no PE noted. # acute CHF exacerbation - patient with elevated BNP, pleural effusion, as well as PND and orthopnea - will treat with IV Lasix - strict I&O, low-sodium diet, daily weight - cardiology consulted - echocardiogram # pericardial effusion - hemodynamically stable - echocardiogram - cardia on consult # acute UTI - positive UA - will treat with IV antibiotics - follow cultures # rectus sheath hematoma - patient does report history of a fall but does not remember details around it - stable H&H - follow CBC - general surgery was consulted and did not feel the patient required any surgical intervention - if H&H continues to drop, consider reconsulting surgery # transaminitis - likely secondary to right heart strain - Lasix - follow LFTs # lactic acidosis - likely secondary to hypoxia - improving - trend # hypertension - low - hold off on antihypertensives # diabetes - low-dose sliding scale insulin - diabetic diet DVT prophylaxis: Eliquis Pt will require a minimum 2 night hospital stay for oxygen supplementation, IV Lasix, IV antibiotics, and further workup as mentioned above Quality Stroke Does the patient have a stroke diagnosis?: No VTE Prior VTE?: No VTE Risk Level:: Medical - moderate - high VTE Device Contraindication: Treatment Not Indicated VTE Drug Contraindication: N/A - Med Ordered
[2022-03-01 08:56] LABS: Reflex Lactate? Lactic Acid Added
--- NOTE | 2022-03-01 09:16 | PC.NURSE ---
DR. ABEBE AT BEDSIDE.
--- NOTE | 2022-03-01 09:22 | PM.CNCAR ---
History of Present Illness History of Present Illness Date of Service: 03/01/22 Requesting physician: Roma Sandoval Consult reason: congestive heart failure Chief complaint: Hypoxic, CHF Exacerbation Narrative: I was consulted to see Gregory in cardiology consultation today for congestive heart failure. History is difficult to obtain as patient has slightly altered mental sensorium and is not very keen on giving much history. Also spoke to his sister who is next of kin listed in the chart who said patient was brought in because of shortness of breath but not further history provided to me. History was obtained from the chart and prior records. 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 However his surgery has been delayed due to multiple issues including a fall leading to cervical spine fracture and then subsequently awaiting dental cleaning. This has been done but now he still waiting for mitral valve repair/replacement. His multiple as per the notes echocardiogram over the last 2 years have shown progressively declining LV ejection fraction with last WARREN as reported in the notes showing EF of 50-55% with significant elevated right atrial pressures. He also has obesity, chronic respiratory failure, question CVA question DVT on Eliquis therapy question cirrhosis of the liver, diabetes, COPD and heart failure. I just spoke with the cardiology PA taking care of the patient as outpatient belonging to [facility], patient was in the waiting phase of being continued evaluation by Cardiothoracic surgery for mitral valve replacement. Review of Systems Review of Systems: Yes Unobtainable due to mental condition and Unobtainable due to mental status PMFSH Past Medical History Medical History BPH (benign prostatic hyperplasia) Carpal tunnel syndrome Chronic low back pain Cirrhosis Colon cancer screening Congestive heart failure COPD (chronic obstructive pulmonary disease) COVID-19 vaccine series completed Edema of both feet GERD (gastroesophageal reflux disease) History of pulmonary embolism History of torsion of testis Hypercholesterolemia Hypertension Hypoxemia Lung density on x-ray Peripheral vascular disease Tobacco abuse Type 2 diabetes mellitus with hyperglycemia Family History Family History Father Diabetes Hypertension CVD (cardiovascular disease) Mother Acute CVA (cerebrovascular accident) Stroke Sister Pulmonary embolism Sister Substance abuse Surgical History Surgical History H/O colonoscopy History of excision of pilonidal cyst History of lumbar discectomy Hx of excision of mass Torsion, testicular Social History Social History Housing: Apartment Alcohol intake: never Patient Tobacco Use Status: Current someday Tobacco user Tobacco use type: Cigarette Cigarettes Per Day: 3 e-Cigarette/Vaping Use: Never Used Second Hand Smoke Exposure: No Advance Directives: Yes Advance Directives on File: Yes Advance Directives Date on File: 03/01/22 service: No Current occupational status: disabled Cognitive needs: Yes Hearing needs: No Vision needs: No Meds Allergies Allergy/AdvReac Type Severity Reaction Status Date / Time amlodipine Allergy Mild Unknown Verified 02/23/22 14:25 atorvastatin [Lipitor] Allergy Mild Unknown Verified 02/23/22 14:25 simvastatin Allergy Unknown cannot Verified 02/23/22 14:25 take due to amlodipine piperacillin [From ZOSYN] AdvReac Mild RASH Verified 02/23/22 14:25 tazobactam [From ZOSYN] AdvReac Mild RASH Verified 02/23/22 14:25 Active Medications: Current Medications Acetaminophen (Acetaminophen 325 Mg Tablet) 650 mg PO Q6H PRN PRN Reason: Pain, Mild (Pain Scale 1-3) Albuterol Sulfate (Albuterol Sulfate 90 Mcg 8 Gm Inhaler) 2 puff INHALE Q6H PRN PRN Reason: Shortness Of Breath Apixaban (Apixaban 5 Mg Tablet) 5 mg PO BID [facility] Last Admin: 03/01/22 08:01 Dose: 5 mg Dextrose (Dextrose 50 % 25 Gm/50 Ml Syringe) 25 gm IVPUSH Q15M PRN; Protocol PRN Reason: per Hypoglycemia Standing Ord. Docusate Sodium (Docusate Sodium 100 Mg Capsule) 100 mg PO DAILY PRN PRN Reason: Constipation Duloxetine HCl (Duloxetine Hcl 60 Mg Capsule.) 60 mg PO DAILY [facility] Last Admin: 03/01/22 08:01 Dose: 60 mg Ferrous Sulfate (Ferrous Sulfate 324 Mg Tablet.) 325 mg PO DAILY [facility] Last Admin: 03/01/22 08:02 Dose: 325 mg Fluticasone Propionate (Fluticasone Propionate Nasal 16 Gm [place]) 1 spray NOSTRIL-B DAILY [facility] Last Admin: 03/01/22 08:29 Dose: Not Given Fluticasone/Vilanterol (Fluticasone/Vilanterol 200/25 Blst.W.Dev) 1 puff INHALE RDAILY [facility] Last Admin: 03/01/22 08:26 Dose: Not Given Glucose (Glucose Gel 15 Gm Gel..Gram.) 15 gm PO Q15M PRN; Protocol PRN Reason: per Hypoglycemia Standing Ord. Ceftriaxone Sodium 1 gm/ (Sodium Chloride) 50 mls @ 100 mls/hr IV Q24H [facility] Furosemide 200 mg/ Sodium (Chloride) 100 mls @ 2.5 mls/hr IVCONT .Q24H [facility] Insulin Human Lispro (Insulin Lispro 100 Unit/Ml 3 Ml Vial) 0 unit SUBCUT QIDACHS [facility]; Protocol Last Admin: 03/01/22 08:25 Dose: Not Given Lactulose (Lactulose 20 Gm/30 Ml Solution) 20 gm PO TID PRN PRN Reason: laxative effect Metoprolol Tartrate (Metoprolol Tartrate 12.5 Mg Halftab) 37.5 mg PO BID [facility]; Protocol Last Admin: 03/01/22 08:00 Dose: 37.5 mg Non-Formulary Medication (Rosuvastatin) 5 mg PO DAILY [facility] Nystatin (Nystatin Powder 15 Gm Bottle) 1 appl TOPICAL TID [facility]; Protocol Last Admin: 03/01/22 08:26 Dose: Not Given Omeprazole (Omeprazole 20 Mg Capsule.Dr) 20 mg PO DAILY@0630 [facility] Last Admin: 03/01/22 08:01 Dose: 20 mg Ondansetron HCl (Ondansetron Hcl 4 Mg/2 Ml Vial) 4 mg IVPUSH Q8H PRN PRN Reason: Nausea and Vomiting Oxycodone HCl (Oxycodone Hcl Immed Release 5 Mg Tablet) 5 mg PO Q6H PRN PRN Reason: pain Pharmacy Consult (Consult Rx Perform Med Rec) 1 each MISCELLANE ONCE PRN PRN Reason: Consult order Sodium Chloride (0.9 % Sodium Chloride Flush 3 Ml Syringe) 3 ml IVFLUSH QSHIFT [facility] Last Admin: 03/01/22 08:28 Dose: 3 ml Tamsulosin HCl (Tamsulosin Hcl 0.4 Mg Capsule) 0.4 mg PO DAILY [facility] Last Admin: 03/01/22 08:00 Dose: 0.4 mg Vitamin D (Cholecalciferol (Vitamin D3) 25 Mcg Tablet) 25 mcg PO DAILY [facility] Last Admin: 03/01/22 08:00 Dose: 25 mcg Home Medications Medication Instructions Recorded Confirmed Last Taken Type albuterol sulfate 90 mcg/actuation 2 puff inhalation Q6H PRN 02/26/20 02/28/22 Unknown History aerosol inhaler (ProAir HFA) Shortness Of Breath cholecalciferol (vitamin D3) 25 25 mcg PO DAILY 02/26/20 02/28/22 Unknown History mcg (1,000 unit) tablet ferrous sulfate 325 mg (65 mg 325 mg PO DAILY 10/31/21 02/28/22 Unknown History iron) tablet furosemide 40 mg tablet (Lasix) 80 mg PO DAILY 02/23/22 02/28/22 Unknown History metoprolol tartrate 25 mg tablet 37.5 mg PO BID 02/23/22 02/28/22 Unknown History lisinopril 2.5 mg tablet 1 tab PO DAILY 02/28/22 02/28/22 Unknown History pantoprazole 40 mg tablet,delayed 1 tab PO DAILY 02/28/22 02/28/22 Unknown History release Physical Exam Vital Signs: Vital Signs: Last Vital Signs Temp 99.3 F 03/01/22 08:00 Pulse 141 H 03/01/22 08:00 Resp 18 03/01/22 08:23 BP 109/77 03/01/22 08:00 Pulse Ox 91 L 03/01/22 08:00 O2 Del Method 03/01/22 08:00 O2 Flow Rate 35 03/01/22 08:00 FiO2 33 02/28/22 21:55 BMI result Body Mass Index 37.2 Const: General: in distress severe and respiratory, ill appearing and lethargic Nutritional Appearance: obese Orientation/consciousness: lethargic HEENT: Head: Yes normocephalic and Yes atraumatic Neck: Neck: Yes trachea midline, Yes supple and Yes JVD Resp: Effort & Inspection: decreased respiratory effort and respiratory distress Auscultation: crackles and diminished lung sounds Cardio: Jugular venous distension: JVD Palpation: abnormal PMI displaced PMI Rate: tachycardic Rhythm: regular rhythm Heart sounds: S1 normal heart sound present, S2 normal heart sound present, Gallop heart sound present S3 gallop and Other heart sounds present (Cannot appreciate a murmur) GI: Inspection: Yes Abdominal wall edema, Yes distended and Yes obesity Auscultation: normal bowel sounds Skin: General skin exam: no rashes or lesions noted and ecchymosis Neuro: General: no focal motor deficits Extrem: General: No clubbing, No cyanosis, Yes edema and Yes venous stasis dermatitis Objective Labs and Meds Result diagrams: 03/01/22 06:48 03/01/22 06:48 Lab results: Laboratory Results - last 24 hr 02/28/22 02/28/22 02/28/22 17:08 17:12 17:13 WBC RBC Hgb Hct MCV MCH MCHC RDW Plt Count MPV Immature Gran % (Auto) Neut % (Auto) Lymph % (Auto) [place] % (Auto) Eos % (Auto) Baso % (Auto) Lymph # (Auto) [place] # (Auto) Eos # (Auto) Baso # (Auto) Abs Immat Gran (auto) Absolute Neuts (auto) Absolute Nucleated RBC Nucleated RBC % (auto) Smear Tech's Comments D-Dimer High Sensitivty 1313 O2 Saturation 99.0 ABG pH at Pt Temp 7.24 L ABG pCO2 at Pt Temp 63 H* ABG pO2 at Pt Temp 331 H ABG HCO3 27 H ABG Base Excess (Actual) -0.6 VBG pH VBG pCO2 VBG pO2 VBG HCO3 VBG O2 Saturation VBG Base Excess Sodium Potassium Chloride Carbon Dioxide Anion Gap BUN Creatinine Estim Creat Clear Calc Estimated GFR POC Glucose Random Glucose Lactic Acid Lactic Acid F/U @ 2Hr Lactic Acid F/U @ 4Hr Calcium Magnesium Total Bilirubin AST ALT Alkaline Phosphatase Ammonia Troponin I High Sens B-Natriuretic Peptide Total Protein Albumin Urine Color Urine Appearance Urine pH Ur Specific [place] Urine Protein Urine Glucose (UA) Urine Ketones Urine Blood Urine Nitrite Ur Leukocyte Esterase Urine RBC Urine WBC Ur Squamous Epith Cells Urine Bacteria Hyaline Casts Granular Casts Urine Opiates Screen Urine Fentanyl Screen Ur Barbiturates Screen Ur Phencyclidine Scrn Ur Amphetamines Screen U Benzodiazepines Scrn Urine Cocaine Screen U Marijuana (THC) Screen COVID-19 (EWA) Negative COVID-19 Clin Com See Note 02/28/22 02/28/22 02/28/22 17:13 17:13 17:13 WBC RBC Hgb Hct MCV MCH MCHC RDW Plt Count MPV Immature Gran % (Auto) Neut % (Auto) Lymph % (Auto) [place] % (Auto) Eos % (Auto) Baso % (Auto) Lymph # (Auto) [place] # (Auto) Eos # (Auto) Baso # (Auto) Abs Immat Gran (auto) Absolute Neuts (auto) Absolute Nucleated RBC Nucleated RBC % (auto) Smear Tech's Comments D-Dimer High Sensitivty O2 Saturation ABG pH at Pt Temp ABG pCO2 at Pt Temp ABG pO2 at Pt Temp ABG HCO3 ABG Base Excess (Actual) VBG pH VBG pCO2 VBG pO2 VBG HCO3 VBG O2 Saturation VBG Base Excess Sodium 142 Potassium 6.3 H* Chloride 104 Carbon Dioxide 28 Anion Gap 16 BUN 38 H Creatinine 1.45 H Estim Creat Clear Calc 64.6 Estimated GFR 49 POC Glucose Random Glucose 118 H Lactic Acid Lactic Acid F/U @ 2Hr Lactic Acid F/U @ 4Hr Calcium 9.0 Magnesium 1.6 Total Bilirubin 1.6 H AST 348 H ALT 113 H Alkaline Phosphatase 65 Ammonia 30 Troponin I High Sens 15.5 B-Natriuretic Peptide 881 H Total Protein 8.0 Albumin 3.7 Urine Color Urine Appearance Urine pH Ur Specific [place] Urine Protein Urine Glucose (UA) Urine Ketones Urine Blood Urine Nitrite Ur Leukocyte Esterase Urine RBC Urine WBC Ur Squamous Epith Cells Urine Bacteria Hyaline Casts Granular Casts Urine Opiates Screen Urine Fentanyl Screen Ur Barbiturates Screen Ur Phencyclidine Scrn Ur Amphetamines Screen U Benzodiazepines Scrn Urine Cocaine Screen U Marijuana (THC) Screen COVID-19 (EWA) COVID-19 Clin Com 02/28/22 02/28/22 02/28/22 17:13 17:18 17:30 WBC 7.6 RBC 3.69 L Hgb 9.7 L Hct 33.6 L MCV 91.1 MCH 26.3 L MCHC 28.9 L RDW 18.2 H Plt Count 196 MPV 10.8 Immature Gran % (Auto) 0.4 Neut % (Auto) 68.8 Lymph % (Auto) 12.1 L [place] % (Auto) 16.6 H Eos % (Auto) 1.8 Baso % (Auto) 0.3 Lymph # (Auto) 0.9 L [place] # (Auto) 1.3 H Eos # (Auto) 0.1 Baso # (Auto) 0.0 Abs Immat Gran (auto) 0.03 Absolute Neuts (auto) 5.2 Absolute Nucleated RBC 0.030 H Nucleated RBC % (auto) 0.4 H Smear Tech's Comments D-Dimer High Sensitivty O2 Saturation ABG pH at Pt Temp ABG pCO2 at Pt Temp ABG pO2 at Pt Temp ABG HCO3 ABG Base Excess (Actual) VBG pH VBG pCO2 VBG pO2 VBG HCO3 VBG O2 Saturation VBG Base Excess Sodium Potassium Chloride Carbon Dioxide Anion Gap BUN Creatinine Estim Creat Clear Calc Estimated GFR POC Glucose Random Glucose Lactic Acid 2.8 H* Lactic Acid F/U @ 2Hr Lactic Acid F/U @ 4Hr Calcium Magnesium Total Bilirubin AST ALT Alkaline Phosphatase Ammonia Troponin I High Sens B-Natriuretic Peptide Total Protein Albumin Urine Color Dark Yellow Urine Appearance Turbid Urine pH 5.5 Ur Specific [place] 1.025 Urine Protein 300 (3+) H Urine Glucose (UA) Negative Urine Ketones Trace Urine Blood Large (3+) H Urine Nitrite Negative Ur Leukocyte Esterase Moderate (2+) H Urine RBC >20 H Urine WBC >50 H Ur Squamous Epith Cells 3-5 Urine Bacteria 4+ Hyaline Casts 11-20 Granular Casts Present Urine Opiates Screen Urine Fentanyl Screen Ur Barbiturates Screen Ur Phencyclidine Scrn Ur Amphetamines Screen U Benzodiazepines Scrn Urine Cocaine Screen U Marijuana (THC) Screen COVID-19 (EWA) COVID-19 Clin Com 02/28/22 02/28/22 02/28/22 17:30 20:38 23:27 WBC 6.5 RBC 3.36 L Hgb 8.9 L Hct 30.3 L MCV 90.2 MCH 26.5 L MCHC 29.4 L RDW 18.2 H Plt Count 157 L MPV 10.7 Immature Gran % (Auto) 0.3 Neut % (Auto) 64.6 Lymph % (Auto) 12.2 L [place] % (Auto) 21.2 H Eos % (Auto) 1.4 Baso % (Auto) 0.3 Lymph # (Auto) 0.8 L [place] # (Auto) 1.4 H Eos # (Auto) 0.1 Baso # (Auto) 0.0 Abs Immat Gran (auto) 0.02 Absolute Neuts (auto) 4.2 Absolute Nucleated RBC 0.040 H Nucleated RBC % (auto) 0.6 H Smear Tech's Comments VERIFIED D-Dimer High Sensitivty O2 Saturation ABG pH at Pt Temp ABG pCO2 at Pt Temp ABG pO2 at Pt Temp ABG HCO3 ABG Base Excess (Actual) VBG pH VBG pCO2 VBG pO2 VBG HCO3 VBG O2 Saturation VBG Base Excess Sodium Potassium Chloride Carbon Dioxide Anion Gap BUN Creatinine Estim Creat Clear Calc Estimated GFR POC Glucose Random Glucose Lactic Acid Lactic Acid F/U @ 2Hr 3.7 H* Lactic Acid F/U @ 4Hr Calcium Magnesium Total Bilirubin AST ALT Alkaline Phosphatase Ammonia Troponin I High Sens B-Natriuretic Peptide Total Protein Albumin Urine Color Urine Appearance Urine pH Ur Specific [place] Urine Protein Urine Glucose (UA) Urine Ketones Urine Blood Urine Nitrite Ur Leukocyte Esterase Urine RBC Urine WBC Ur Squamous Epith Cells Urine Bacteria Hyaline Casts Granular Casts Urine Opiates Screen POSITIVE H Urine Fentanyl Screen Not Detected Ur Barbiturates Screen Not Detected Ur Phencyclidine Scrn Not Detected Ur Amphetamines Screen Not Detected U Benzodiazepines Scrn Not Detected Urine Cocaine Screen Not Detected U Marijuana (THC) Screen Not Detected COVID-19 (EWA) COVID-19 Clin Com 02/28/22 02/28/22 02/28/22 23:27 23:27 23:33 WBC RBC Hgb Hct MCV MCH MCHC RDW Plt Count MPV Immature Gran % (Auto) Neut % (Auto) Lymph % (Auto) [place] % (Auto) Eos % (Auto) Baso % (Auto) Lymph # (Auto) [place] # (Auto) Eos # (Auto) Baso # (Auto) Abs Immat Gran (auto) Absolute Neuts (auto) Absolute Nucleated RBC Nucleated RBC % (auto) Smear Tech's Comments D-Dimer High Sensitivty O2 Saturation ABG pH at Pt Temp ABG pCO2 at Pt Temp ABG pO2 at Pt Temp ABG HCO3 ABG Base Excess (Actual) VBG pH 7.27 L VBG pCO2 67 VBG pO2 51 VBG HCO3 31 H VBG O2 Saturation 77.0 VBG Base Excess 3.3 Sodium 144 Potassium 5.0 D Chloride 105 Carbon Dioxide 29 Anion Gap 15 BUN 39 H Creatinine 1.41 H Estim Creat Clear Calc 66.4 Estimated GFR 51 POC Glucose Random Glucose 109 Lactic Acid Lactic Acid F/U @ 2Hr Lactic Acid F/U @ 4Hr 2.6 H* Calcium 8.8 Magnesium Total Bilirubin 1.4 H AST 345 H ALT 115 H Alkaline Phosphatase 59 Ammonia Troponin I High Sens B-Natriuretic Peptide Total Protein 7.2 Albumin 3.4 L Urine Color Urine Appearance Urine pH Ur Specific [place] Urine Protein Urine Glucose (UA) Urine Ketones Urine Blood Urine Nitrite Ur Leukocyte Esterase Urine RBC Urine WBC Ur Squamous Epith Cells Urine Bacteria Hyaline Casts Granular Casts Urine Opiates Screen Urine Fentanyl Screen Ur Barbiturates Screen Ur Phencyclidine Scrn Ur Amphetamines Screen U Benzodiazepines Scrn Urine Cocaine Screen U Marijuana (THC) Screen COVID-19 (EWA) COVID-19 Clin Com 03/01/22 03/01/22 03/01/22 06:48 06:48 06:48 WBC 7.8 RBC 3.25 L Hgb 8.5 L Hct 29.6 L MCV 91.1 MCH 26.2 L MCHC 28.7 L RDW 18.4 H Plt Count 155 L MPV 11.4 Immature Gran % (Auto) 0.3 Neut % (Auto) 66.0 Lymph % (Auto) 9.8 L [place] % (Auto) 20.3 H Eos % (Auto) 3.1 Baso % (Auto) 0.5 Lymph # (Auto) 0.8 L [place] # (Auto) 1.6 H Eos # (Auto) 0.2 Baso # (Auto) 0.0 Abs Immat Gran (auto) 0.02 Absolute Neuts (auto) 5.1 Absolute Nucleated RBC 0.020 H Nucleated RBC % (auto) 0.3 H Smear Tech's Comments D-Dimer High Sensitivty O2 Saturation ABG pH at Pt Temp ABG pCO2 at Pt Temp ABG pO2 at Pt Temp ABG HCO3 ABG Base Excess (Actual) VBG pH VBG pCO2 VBG pO2 VBG HCO3 VBG O2 Saturation VBG Base Excess Sodium 141 Potassium 5.2 H Chloride 103 Carbon Dioxide 27 Anion Gap 16 BUN 39 H Creatinine 1.32 Estim Creat Clear Calc 71.0 Estimated GFR 55 POC Glucose Random Glucose 91 Lactic Acid 2.9 H* Lactic Acid F/U @ 2Hr Lactic Acid F/U @ 4Hr Calcium 9.3 Magnesium Total Bilirubin AST ALT Alkaline Phosphatase Ammonia Troponin I High Sens B-Natriuretic Peptide Total Protein Albumin Urine Color Urine Appearance Urine pH Ur Specific [place] Urine Protein Urine Glucose (UA) Urine Ketones Urine Blood Urine Nitrite Ur Leukocyte Esterase Urine RBC Urine WBC Ur Squamous Epith Cells Urine Bacteria Hyaline Casts Granular Casts Urine Opiates Screen Urine Fentanyl Screen Ur Barbiturates Screen Ur Phencyclidine Scrn Ur Amphetamines Screen U Benzodiazepines Scrn Urine Cocaine Screen U Marijuana (THC) Screen COVID-19 (EWA) COVID-19 Clin Com 03/01/22 06:57 WBC RBC Hgb Hct MCV MCH MCHC RDW Plt Count MPV Immature Gran % (Auto) Neut % (Auto) Lymph % (Auto) [place] % (Auto) Eos % (Auto) Baso % (Auto) Lymph # (Auto) [place] # (Auto) Eos # (Auto) Baso # (Auto) Abs Immat Gran (auto) Absolute Neuts (auto) Absolute Nucleated RBC Nucleated RBC % (auto) Smear Tech's Comments D-Dimer High Sensitivty O2 Saturation ABG pH at Pt Temp ABG pCO2 at Pt Temp ABG pO2 at Pt Temp ABG HCO3 ABG Base Excess (Actual) VBG pH VBG pCO2 VBG pO2 VBG HCO3 VBG O2 Saturation VBG Base Excess Sodium Potassium Chloride Carbon Dioxide Anion Gap BUN Creatinine Estim Creat Clear Calc Estimated GFR POC Glucose 83 Random Glucose Lactic Acid Lactic Acid F/U @ 2Hr Lactic Acid F/U @ 4Hr Calcium Magnesium Total Bilirubin AST ALT Alkaline Phosphatase Ammonia Troponin I High Sens B-Natriuretic Peptide Total Protein Albumin Urine Color Urine Appearance Urine pH Ur Specific [place] Urine Protein Urine Glucose (UA) Urine Ketones Urine Blood Urine Nitrite Ur Leukocyte Esterase Urine RBC Urine WBC Ur Squamous Epith Cells Urine Bacteria Hyaline Casts Granular Casts Urine Opiates Screen Urine Fentanyl Screen Ur Barbiturates Screen Ur Phencyclidine Scrn Ur Amphetamines Screen U Benzodiazepines Scrn Urine Cocaine Screen U Marijuana (THC) Screen COVID-19 (EWA) COVID-19 Clin Com Imaging Radiologist's impression: Impressions Chest X-Ray 02/28/22 16:03 IMPRESSION: Limited exam due to technique. Areas of infiltrate cannot be excluded though appearance may be due to the radiographic technique. Recommend PA and lateral films when the patient is able. Abdomen/Pelvis CT 02/28/22 19:20 IMPRESSION: 1. No central pulmonary embolus or large segmental pulmonary embolus. Assessment for segmental pulmonary emboli is significantly limited due to motion artifact and suboptimal contrast opacification of more distal branches. 2. Small to moderate-sized left pleural effusion and mild atelectasis bilaterally. 3. Small to moderate-sized pericardial effusion. 4. Cardiomegaly with atrial enlargement. Reflux of contrast into the distended IVC and hepatic veins suggesting elevated right heart pressure/right heart dysfunction. Correlate clinically. 5. Mild hepatic steatosis. 6. Right rectus sheath hematoma measuring 8.4 x 7 x 9.7 cm in size. 7. Diffuse body wall edema/anasarca and small volume ascites. 8. 1.9 cm hypodense lesion in the inferior right liver lobe, indeterminate on this exam. VTE: Negative, with significant limitation as above Chest CTA 02/28/22 19:20 IMPRESSION: 1. No central pulmonary embolus or large segmental pulmonary embolus. Assessment for segmental pulmonary emboli is significantly limited due to motion artifact and suboptimal contrast opacification of more distal branches. 2. Small to moderate-sized left pleural effusion and mild atelectasis bilaterally. 3. Small to moderate-sized pericardial effusion. 4. Cardiomegaly with atrial enlargement. Reflux of contrast into the distended IVC and hepatic veins suggesting elevated right heart pressure/right heart dysfunction. Correlate clinically. 5. Mild hepatic steatosis. 6. Right rectus sheath hematoma measuring 8.4 x 7 x 9.7 cm in size. 7. Diffuse body wall edema/anasarca and small volume ascites. 8. 1.9 cm hypodense lesion in the inferior right liver lobe, indeterminate on this exam. VTE: Negative, with significant limitation as above Head CT 02/28/22 19:20 IMPRESSION: No acute intracranial pathology. Assessment and Plan (1) Respiratory failure: Status: Acute Patient presents with worsening shortness of breath and in acute hypoxic respiratory failure with hypercapnia. This is related to multiple comorbid factors. He has multiple comorbidities including morbid obesity, chronic anemia, poor functional status, CKD, prior CVA. Patient appears to be in florid congestive heart failure. On the right heart failure but also cannot rule out any significant pulmonary edema given his body habitus. He has uncorrected severe mitral regurgitation with declining LVEF 6 months ago. Most likely cause for his progressive biventricular failure appears to be valvular heart disease related to mitral regurgitation. This needs further attention. Cannot be done at this hospital. Discussed with Cardiology at [facility] as well as patient's primary cardiology group and will transfer to [facility] CCU to optimize his respiratory as well as cardiac status and then have Cardiothoracic surgery see him. Meanwhile continue supportive care with BiPAP. ABG to be done. Patient has significant hypoxemia and/or hypercapnia may need more mechanical ventilation. Afterload reduction. Will obtain a bedside echocardiogram. Management was discussed with the patient and he is agreeable to be transferred to the [facility] as well as discussed with the sister who is agreeable as well. He does have rectal sheath hematoma and low hematocrit. For now will hold off on any anticoagulation. EKG appears to show atrial tachycardia rapid ventricular rate with 2 is to 1 conduction. Will pursue rate control approach. Continue diuresis. Overall prognosis is guarded. Will transfer patient to [facility]. Procedures Date of Service Date of Service: 03/01/22
[2022-03-01 09:27] LABS: Venous Blood Gas Refer to POC result
--- NOTE | 2022-03-01 09:27 | PM.DS ---
DS: Providers Provider Date of Service: 03/01/22 Date of admission: 02/28/22 23:20 Primary care physician: Per Nunez MD Consults: 02/28/22 23:18 Consult to Cardiology Routine Consulting Provider: Stanford Saavedra Reason for consultation: CHF Has provider been notified: No DS: Diagnosis Discharge Diagnosis (1) Hypercapnic respiratory failure: Status: Acute (2) Acute exacerbation of CHF (congestive heart failure): Status: Acute DS: Summary Hospital Course Hospital Course: Chief Complaint: SOB 61-year-old male with past medical history of BPH, CVA, liver cirrhosis, CHF, COPD, GERD, HLD, HTN, peripheral vascular disease, type 2 diabetes, among other past medical history of presents to the hospital with complaints of shortness of breath and abnormal labs.? Shortness of breast been going on for 4 days.? Patient also reported to have worsening mentation, more confused according to report.? My interview patient is awake, alert, oriented to self and place.? He tells me that he has been short of breath, but has no cough, and no sputum production.? He reports lower extremity edema.? He also endorses orthopnea and PND.? Patient otherwise denies any chest pain, no palpitations, no headache or change in vision, no abdominal pain nausea or vomiting, no diarrhea constipation, no urinary symptoms and no numbness tingling or weakness. Patient was found to have a rectus sheath hematoma on imaging, when asked about it reports that he had a fall but is not remember when that fall was or how it happened. On arrival to the ED patient noted to have tachycardia with a heart rate in 119 with O2 dropping to mid 80s. Labs are significant for WBC count of 6.5, hemoglobin of 9.7, medic with a 3.6, pH of 7.? Two 4 with a pCO2 of 63, patient was placed on BiPAP for several hours with improvement in his mentation Lactic acid of 2.8, total bili of 1.6, AST of 348, ALT of 113, BNP of 881, and UA that is positive for leukocyte Estrace WBC, Chest CT angiogram shows no central pulmonary embolus or large segmental pulmonary embolus.? Assessment for segmental pulmonary emboli significantly limited due to motion artifact and suboptimal contrast.? There is small to moderate left pleural effusion and mild atelectasis bilaterally, there is small to moderate size pericardial effusion, there is distended IVC and hepatic veins suggesting elevated right heart pressure, there is also right rectus sheath hematoma measuring 8.4 x 7 x 9.7 cm in size, General surgery was contacted regarding the hematoma, recommended no surgical intervention at this time Patient started on diuretics and will be admitted for further management Hospital course: # Acute hypoxic respiratory failure due right right heart failure with known history of significant mitral regurgitation related to mitral valve endocarditis which was treated for 6 weeks and following that he continued to have residual mitral regurgitation and was seen by Cardiothoracic surgery at [facility]. He is presentl hypoxic and has been mantained on Bipap for better oxygen, he is has been on IV Lasix 40 bid which is being changed to IV drip. Echocardiogram is been performed. He will need reassessment cardiology team and cardiothoracic team for possible valvular surgery once medically stable. # Pericardial effusion--Seen on CT likely from heart failure and no evidence tamponade at this time but need close observation and reasess after treatment for heart failure # Acute UTI--IV Ceftriaxone # rectus sheath hematoma - patient does report history of a fall but does not remember details around it - stable H&H - follow CBC - general surgery was consulted and did not feel the patient required any surgical intervention - if H&H continues to drop, consider reconsulting surgery, holding Apixaban for now # transaminitis - likely secondary to right heart strain - Lasix - follow LFTs # lactic acidosis - likely secondary to hypoxia - improving - trended down # hypertension--BPs were low so meds on hold now # diabetes - low-dose sliding scale insulin - diabetic diet #Bilateral leg erythema--with no warthm, no leukocytosis--Patient claims that these are chronic, Time Spent with Patient Time attestation: Total time spent providing and/or coordinating discharge services: Discharge coordination time: Greater than 30 minutes Quality: Safe Use of Opioids Does Pt have an Active Cancer Diagnosis on the Problem List?: No Quality: Stroke Does the patient have a stroke diagnosis?: No Physical Exam Vital Signs: Vital Signs: Last Vital Signs Temp 99.3 F 03/01/22 08:00 Pulse 141 H 03/01/22 08:00 Resp 18 03/01/22 08:23 BP 109/77 03/01/22 08:00 Pulse Ox 91 L 03/01/22 08:00 O2 Del Method 03/01/22 08:00 O2 Flow Rate 35 03/01/22 08:00 FiO2 33 02/28/22 21:55 BMI result Body Mass Index 37.2 Const: Other: Constitutional: Alert, in no distress, overweight. Mental Status: Oriented to person, place otherwise confused Eyes: Pupils are equal, round and reactive to light. Ear, Nose and Throat: Oropharynx clear, mucous membranes moist. Respiratory: bilateral rales at bases with poor air entry, no wheezes Cardiovascular: S1 S2 regular. tachy +distended neck vein Gastrointestinal: Abdomen soft, non-tender, non-distended. Normal bowel sounds.? Neurologic: Cranial nerves II-XII grossly intact. No focal neurological deficits. Moves all extremities spontaneously.? Skin: extensive redness of both legs--pt said these are chronic Musculoskeletal: No cyanosis or clubbing. Psychiatric: flat affect DS: Data Data Completed and Pending Labs on day of discharge: Laboratory Results - last 24 hr 02/28/22 02/28/22 02/28/22 17:08 17:12 17:13 WBC RBC Hgb Hct MCV MCH MCHC RDW Plt Count MPV Immature Gran % (Auto) Neut % (Auto) Lymph % (Auto) [place] % (Auto) Eos % (Auto) Baso % (Auto) Lymph # (Auto) [place] # (Auto) Eos # (Auto) Baso # (Auto) Abs Immat Gran (auto) Absolute Neuts (auto) Absolute Nucleated RBC Nucleated RBC % (auto) Smear Tech's Comments D-Dimer High Sensitivty 1313 O2 Saturation 99.0 ABG pH at Pt Temp 7.24 L ABG pCO2 at Pt Temp 63 H* ABG pO2 at Pt Temp 331 H ABG HCO3 27 H ABG Base Excess (Actual) -0.6 VBG pH VBG pCO2 VBG pO2 VBG HCO3 VBG O2 Saturation VBG Base Excess Sodium Potassium Chloride Carbon Dioxide Anion Gap BUN Creatinine Estim Creat Clear Calc Estimated GFR POC Glucose Random Glucose Lactic Acid Lactic Acid F/U @ 2Hr Lactic Acid F/U @ 4Hr Calcium Magnesium Total Bilirubin AST ALT Alkaline Phosphatase Ammonia Troponin I High Sens B-Natriuretic Peptide Total Protein Albumin Urine Color Urine Appearance Urine pH Ur Specific [place] Urine Protein Urine Glucose (UA) Urine Ketones Urine Blood Urine Nitrite Ur Leukocyte Esterase Urine RBC Urine WBC Ur Squamous Epith Cells Urine Bacteria Hyaline Casts Granular Casts Urine Opiates Screen Urine Fentanyl Screen Ur Barbiturates Screen Ur Phencyclidine Scrn Ur Amphetamines Screen U Benzodiazepines Scrn Urine Cocaine Screen U Marijuana (THC) Screen COVID-19 (EWA) Negative COVID-19 Clin Com See Note 02/28/22 02/28/22 02/28/22 17:13 17:13 17:13 WBC RBC Hgb Hct MCV MCH MCHC RDW Plt Count MPV Immature Gran % (Auto) Neut % (Auto) Lymph % (Auto) [place] % (Auto) Eos % (Auto) Baso % (Auto) Lymph # (Auto) [place] # (Auto) Eos # (Auto) Baso # (Auto) Abs Immat Gran (auto) Absolute Neuts (auto) Absolute Nucleated RBC Nucleated RBC % (auto) Smear Tech's Comments D-Dimer High Sensitivty O2 Saturation ABG pH at Pt Temp ABG pCO2 at Pt Temp ABG pO2 at Pt Temp ABG HCO3 ABG Base Excess (Actual) VBG pH VBG pCO2 VBG pO2 VBG HCO3 VBG O2 Saturation VBG Base Excess Sodium 142 Potassium 6.3 H* Chloride 104 Carbon Dioxide 28 Anion Gap 16 BUN 38 H Creatinine 1.45 H Estim Creat Clear Calc 64.6 Estimated GFR 49 POC Glucose Random Glucose 118 H Lactic Acid Lactic Acid F/U @ 2Hr Lactic Acid F/U @ 4Hr Calcium 9.0 Magnesium 1.6 Total Bilirubin 1.6 H AST 348 H ALT 113 H Alkaline Phosphatase 65 Ammonia 30 Troponin I High Sens 15.5 B-Natriuretic Peptide 881 H Total Protein 8.0 Albumin 3.7 Urine Color Urine Appearance Urine pH Ur Specific [place] Urine Protein Urine Glucose (UA) Urine Ketones Urine Blood Urine Nitrite Ur Leukocyte Esterase Urine RBC Urine WBC Ur Squamous Epith Cells Urine Bacteria Hyaline Casts Granular Casts Urine Opiates Screen Urine Fentanyl Screen Ur Barbiturates Screen Ur Phencyclidine Scrn Ur Amphetamines Screen U Benzodiazepines Scrn Urine Cocaine Screen U Marijuana (THC) Screen COVID-19 (EWA) COVID-19 Clin Com 02/28/22 02/28/22 02/28/22 17:13 17:18 17:30 WBC 7.6 RBC 3.69 L Hgb 9.7 L Hct 33.6 L MCV 91.1 MCH 26.3 L MCHC 28.9 L RDW 18.2 H Plt Count 196 MPV 10.8 Immature Gran % (Auto) 0.4 Neut % (Auto) 68.8 Lymph % (Auto) 12.1 L [place] % (Auto) 16.6 H Eos % (Auto) 1.8 Baso % (Auto) 0.3 Lymph # (Auto) 0.9 L [place] # (Auto) 1.3 H Eos # (Auto) 0.1 Baso # (Auto) 0.0 Abs Immat Gran (auto) 0.03 Absolute Neuts (auto) 5.2 Absolute Nucleated RBC 0.030 H Nucleated RBC % (auto) 0.4 H Smear Tech's Comments D-Dimer High Sensitivty O2 Saturation ABG pH at Pt Temp ABG pCO2 at Pt Temp ABG pO2 at Pt Temp ABG HCO3 ABG Base Excess (Actual) VBG pH VBG pCO2 VBG pO2 VBG HCO3 VBG O2 Saturation VBG Base Excess Sodium Potassium Chloride Carbon Dioxide Anion Gap BUN Creatinine Estim Creat Clear Calc Estimated GFR POC Glucose Random Glucose Lactic Acid 2.8 H* Lactic Acid F/U @ 2Hr Lactic Acid F/U @ 4Hr Calcium Magnesium Total Bilirubin AST ALT Alkaline Phosphatase Ammonia Troponin I High Sens B-Natriuretic Peptide Total Protein Albumin Urine Color Dark Yellow Urine Appearance Turbid Urine pH 5.5 Ur Specific [place] 1.025 Urine Protein 300 (3+) H Urine Glucose (UA) Negative Urine Ketones Trace Urine Blood Large (3+) H Urine Nitrite Negative Ur Leukocyte Esterase Moderate (2+) H Urine RBC >20 H Urine WBC >50 H Ur Squamous Epith Cells 3-5 Urine Bacteria 4+ Hyaline Casts 11-20 Granular Casts Present Urine Opiates Screen Urine Fentanyl Screen Ur Barbiturates Screen Ur Phencyclidine Scrn Ur Amphetamines Screen U Benzodiazepines Scrn Urine Cocaine Screen U Marijuana (THC) Screen COVID-19 (EWA) COVID-19 Clin Com 02/28/22 02/28/22 02/28/22 17:30 20:38 23:27 WBC 6.5 RBC 3.36 L Hgb 8.9 L Hct 30.3 L MCV 90.2 MCH 26.5 L MCHC 29.4 L RDW 18.2 H Plt Count 157 L MPV 10.7 Immature Gran % (Auto) 0.3 Neut % (Auto) 64.6 Lymph % (Auto) 12.2 L [place] % (Auto) 21.2 H Eos % (Auto) 1.4 Baso % (Auto) 0.3 Lymph # (Auto) 0.8 L [place] # (Auto) 1.4 H Eos # (Auto) 0.1 Baso # (Auto) 0.0 Abs Immat Gran (auto) 0.02 Absolute Neuts (auto) 4.2 Absolute Nucleated RBC 0.040 H Nucleated RBC % (auto) 0.6 H Smear Tech's Comments VERIFIED D-Dimer High Sensitivty O2 Saturation ABG pH at Pt Temp ABG pCO2 at Pt Temp ABG pO2 at Pt Temp ABG HCO3 ABG Base Excess (Actual) VBG pH VBG pCO2 VBG pO2 VBG HCO3 VBG O2 Saturation VBG Base Excess Sodium Potassium Chloride Carbon Dioxide Anion Gap BUN Creatinine Estim Creat Clear Calc Estimated GFR POC Glucose Random Glucose Lactic Acid Lactic Acid F/U @ 2Hr 3.7 H* Lactic Acid F/U @ 4Hr Calcium Magnesium Total Bilirubin AST ALT Alkaline Phosphatase Ammonia Troponin I High Sens B-Natriuretic Peptide Total Protein Albumin Urine Color Urine Appearance Urine pH Ur Specific [place] Urine Protein Urine Glucose (UA) Urine Ketones Urine Blood Urine Nitrite Ur Leukocyte Esterase Urine RBC Urine WBC Ur Squamous Epith Cells Urine Bacteria Hyaline Casts Granular Casts Urine Opiates Screen POSITIVE H Urine Fentanyl Screen Not Detected Ur Barbiturates Screen Not Detected Ur Phencyclidine Scrn Not Detected Ur Amphetamines Screen Not Detected U Benzodiazepines Scrn Not Detected Urine Cocaine Screen Not Detected U Marijuana (THC) Screen Not Detected COVID-19 (EWA) COVID-19 Clin [facility] 02/28/22 02/28/22 02/28/22 23:27 23:27 23:33 WBC RBC Hgb Hct MCV MCH MCHC RDW Plt Count MPV Immature Gran % (Auto) Neut % (Auto) Lymph % (Auto) [place] % (Auto) Eos % (Auto) Baso % (Auto) Lymph # (Auto) [place] # (Auto) Eos # (Auto) Baso # (Auto) Abs Immat Gran (auto) Absolute Neuts (auto) Absolute Nucleated RBC Nucleated RBC % (auto) Smear Tech's Comments D-Dimer High Sensitivty O2 Saturation ABG pH at Pt Temp ABG pCO2 at Pt Temp ABG pO2 at Pt Temp ABG HCO3 ABG Base Excess (Actual) VBG pH 7.27 L VBG pCO2 67 VBG pO2 51 VBG HCO3 31 H VBG O2 Saturation 77.0 VBG Base Excess 3.3 Sodium 144 Potassium 5.0 D Chloride 105 Carbon Dioxide 29 Anion Gap 15 BUN 39 H Creatinine 1.41 H Estim Creat Clear Calc 66.4 Estimated GFR 51 POC Glucose Random Glucose 109 Lactic Acid Lactic Acid F/U @ 2Hr Lactic Acid F/U @ 4Hr 2.6 H* Calcium 8.8 Magnesium Total Bilirubin 1.4 H AST 345 H ALT 115 H Alkaline Phosphatase 59 Ammonia Troponin I High Sens B-Natriuretic Peptide Total Protein 7.2 Albumin 3.4 L Urine Color Urine Appearance Urine pH Ur Specific [place] Urine Protein Urine Glucose (UA) Urine Ketones Urine Blood Urine Nitrite Ur Leukocyte Esterase Urine RBC Urine WBC Ur Squamous Epith Cells Urine Bacteria Hyaline Casts Granular Casts Urine Opiates Screen Urine Fentanyl Screen Ur Barbiturates Screen Ur Phencyclidine Scrn Ur Amphetamines Screen U Benzodiazepines Scrn Urine Cocaine Screen U Marijuana (THC) Screen COVID-19 (EWA) COVID-19 Clin Com 03/01/22 03/01/22 03/01/22 06:48 06:48 06:48 WBC 7.8 RBC 3.25 L Hgb 8.5 L Hct 29.6 L MCV 91.1 MCH 26.2 L MCHC 28.7 L RDW 18.4 H Plt Count 155 L MPV 11.4 Immature Gran % (Auto) 0.3 Neut % (Auto) 66.0 Lymph % (Auto) 9.8 L [place] % (Auto) 20.3 H Eos % (Auto) 3.1 Baso % (Auto) 0.5 Lymph # (Auto) 0.8 L [place] # (Auto) 1.6 H Eos # (Auto) 0.2 Baso # (Auto) 0.0 Abs Immat Gran (auto) 0.02 Absolute Neuts (auto) 5.1 Absolute Nucleated RBC 0.020 H Nucleated RBC % (auto) 0.3 H Smear Tech's Comments D-Dimer High Sensitivty O2 Saturation ABG pH at Pt Temp ABG pCO2 at Pt Temp ABG pO2 at Pt Temp ABG HCO3 ABG Base Excess (Actual) VBG pH VBG pCO2 VBG pO2 VBG HCO3 VBG O2 Saturation VBG Base Excess Sodium 141 Potassium 5.2 H Chloride 103 Carbon Dioxide 27 Anion Gap 16 BUN 39 H Creatinine 1.32 Estim Creat Clear Calc 71.0 Estimated GFR 55 POC Glucose Random Glucose 91 Lactic Acid 2.9 H* Lactic Acid F/U @ 2Hr Lactic Acid F/U @ 4Hr Calcium 9.3 Magnesium Total Bilirubin AST ALT Alkaline Phosphatase Ammonia Troponin I High Sens B-Natriuretic Peptide Total Protein Albumin Urine Color Urine Appearance Urine pH Ur Specific [place] Urine Protein Urine Glucose (UA) Urine Ketones Urine Blood Urine Nitrite Ur Leukocyte Esterase Urine RBC Urine WBC Ur Squamous Epith Cells Urine Bacteria Hyaline Casts Granular Casts Urine Opiates Screen Urine Fentanyl Screen Ur Barbiturates Screen Ur Phencyclidine Scrn Ur Amphetamines Screen U Benzodiazepines Scrn Urine Cocaine Screen U Marijuana (THC) Screen COVID-19 (EWA) COVID-Tracsis Com 03/01/22 06:57 WBC RBC Hgb Hct MCV MCH MCHC RDW Plt Count MPV Immature Gran % (Auto) Neut % (Auto) Lymph % (Auto) [place] % (Auto) Eos % (Auto) Baso % (Auto) Lymph # (Auto) [place] # (Auto) Eos # (Auto) Baso # (Auto) Abs Immat Gran (auto) Absolute Neuts (auto) Absolute Nucleated RBC Nucleated RBC % (auto) Smear Tech's Comments D-Dimer High Sensitivty O2 Saturation ABG pH at Pt Temp ABG pCO2 at Pt Temp ABG pO2 at Pt Temp ABG HCO3 ABG Base Excess (Actual) VBG pH VBG pCO2 VBG pO2 VBG HCO3 VBG O2 Saturation VBG Base Excess Sodium Potassium Chloride Carbon Dioxide Anion Gap BUN Creatinine Estim Creat Clear Calc Estimated GFR POC Glucose 83 Random Glucose Lactic Acid Lactic Acid F/U @ 2Hr Lactic Acid F/U @ 4Hr Calcium Magnesium Total Bilirubin AST ALT Alkaline Phosphatase Ammonia Troponin I High Sens B-Natriuretic Peptide Total Protein Albumin Urine Color Urine Appearance Urine pH Ur Specific [place] Urine Protein Urine Glucose (UA) Urine Ketones Urine Blood Urine Nitrite Ur Leukocyte Esterase Urine RBC Urine WBC Ur Squamous Epith Cells Urine Bacteria Hyaline Casts Granular Casts Urine Opiates Screen Urine Fentanyl Screen Ur Barbiturates Screen Ur Phencyclidine Scrn Ur Amphetamines Screen U Benzodiazepines Scrn Urine Cocaine Screen U Marijuana (THC) Screen COVID-19 (EWA) COVID-19 Clin Com Discharge Plan Discharge Anticipated Discharge Date/Time: 03/01/22 09:47 Patient Disposition: Xfer Acute Care Hospital Discharge Diagnosis: Acute right heart failure Referrals: [facility] [Other] - 1 Week Po,Per Will MD [Primary Care Provider] - 1 Week Discharge Medications: New ceftriaxone 1 gram Recon Soln 1 g IV Q24H Qty: 5 0RF Continued budesonide-formoterol [Symbicort] 160-4.5 mcg/actuation HFA aerosol inhaler 2 puff inhalation BID Qty: 3 3RF (DME) [email or web address],reg,xlrg Misc See Rx Instructions .ROUTE .MEDSUPPLY Qty: 12 0RF Rx Instructions: As directed 20-30 mm Hg metformin 850 mg tablet 850 mg PO BID Qty: 180 3RF gabapentin 600 mg tablet 600 mg PO BID Qty: 180 2RF rosuvastatin 5 mg tablet 5 mg PO DAILY Qty: 90 2RF duloxetine 60 mg capsule,delayed release(DR/EC) 60 mg PO DAILY Qty: 90 3RF tamsulosin 0.4 mg capsule 0.4 mg PO DAILY 90 Days Qty: 90 3RF pantoprazole 40 mg tablet,delayed release (DR/EC) 1 tab PO DAILY lisinopril 2.5 mg tablet 1 tab PO DAILY cholecalciferol (vitamin D3) 25 mcg (1,000 unit) tablet 25 mcg PO DAILY albuterol sulfate [ProAir HFA] 90 mcg/actuation HFA aerosol inhaler 2 puff inhalation Q6H PRN (Reason: Shortness Of Breath) fluticasone propionate [Flonase Allergy Relief] 50 mcg/actuation spray,suspension 1 spray intranasal DAILY 30 Days Qty: 16 2RF Rx Instructions: administer into each nostril metoprolol tartrate 25 mg tablet 37.5 mg PO BID lactulose 10 gram/15 mL solution 20 g PO TID PRN (Reason: laxative effect) Qty: 946 0RF Rx Instructions: Take 3 times a day as needed to facillitate 2-3 bowel movements per day. nystatin [Nystop] 100,000 unit/gram powder 1 appl topical TID Qty: 60 2RF ferrous sulfate 325 mg (65 mg iron) tablet 325 mg PO DAILY furosemide [Lasix] 40 mg tablet 80 mg PO DAILY (DME) DIABETIC SHOES See Rx Instructions .Route .MEDSUPPLY Qty: 1 0RF Rx Instructions: As directed Discontinued apixaban [Eliquis] 5 mg tablet 5 mg PO BID Qty: 180 3RF No Action oxycodone-acetaminophen [Percocet] 5-325 mg tablet 1 tab PO Q6H PRN (Reason: pain) Qty: 120 0RF Rx Instructions: May partial fill (DME) portable oxygen tank and regulator See Rx Instructions .Route .MEDSUPPLY Qty: 1 0RF Rx Instructions: As directed Discharge Orders: Discharge Order (Routine); Ordered 03/01/22 Ordered By: Luis Armando Renteria Diet: Diabetic diet Activity on Discharge: As tolerated Stand Alone Forms: Patient Portal Discharge page Care Plan Goals: management of right heart failure Health Concerns: right heart failure, acute hypoxic respriatory failure Plan of Treatment: Transfer to [facility] for further care Assessment: as above Discharge Date/Time: 03/02/22 14:05
[2022-03-01 09:30] LABS: VBG Base Excess 1.5 mmol/L; VBG HCO3 27 mmol/L (22-26); VBG pCO2 51 mmHg; VBG pH 7.34 (7.32-7.43); VBG pO2 58 mmHg
--- NOTE | 2022-03-01 09:40 | PC.NURSE ---
BIPAP setting changed by RT 10/03 at a rate of 8. O2 stat @ 93%. Bedside Echocardiography is ongoing.
--- NOTE | 2022-03-01 09:56 | MHC.CM.PN ---
Patient is being transferred to [facility]. Patient lives in an apartment with a Roommate and he uses a cane to assist with mobility. Patient was active with [facility] . PCP is Dr. Nunez and Patient received covid vax x4. IMM addressed with Sister/HCP/Olimpia @ [phone].
[2022-03-01] MEDS: Furosemide 200 MG in 0.9 % Sodium Chloride 80 ML IVCONT (10:06)
--- NOTE | 2022-03-01 10:45 | PC.NURSE ---
Shaved patients face per request. Cari Will
--- NOTE | 2022-03-01 11:00 | PC.NURSE ---
Nurse at receiving facility ([facility]) called for report. Nurse will call back in 10 minutes
--- NOTE | 2022-03-01 11:57 | PC.NURSE ---
This RN gave report to receiving RN at [facility]:
--- NOTE | 2022-03-01 11:59 | PC.NURSE ---
Report given to EMS. Pt aware of plan of care.
== END 2022-03-02 14:05 | disposition short-term general hospital (02) | DRG 291 ==
LOC: HO.ED 21:53 → HO.EDOVER 23:24
PROVIDERS: Physician Assistant; Admitting Provider Internal Medicine; Emergency Provider Emergency Medicine; PCP Internal Medicine; Visit Provider Internal Medicine
DX: I11.0 Hypertensive heart disease with heart failure (principal); J96.01 Acute respiratory failure with hypoxia; J96.02 Acute respiratory failure with hypercapnia; N39.0 Urinary tract infection, site not specified; I31.39 Other pericardial effusion (noninflammatory); N40.0 Benign prostatic hyperplasia without lower urinary tract symptoms; E11.51 Type 2 diabetes mellitus with diabetic peripheral angiopathy without gangrene; K21.9 Gastro-esophageal reflux disease without esophagitis; I50.811 Acute right heart failure; F17.210 Nicotine dependence, cigarettes, uncomplicated; X58.XXXA Exposure to other specified factors, initial encounter; S30.1XXA Contusion of abdominal wall, initial encounter; E87.5 Hyperkalemia; I34.0 Nonrheumatic mitral (valve) insufficiency; Z71.6 Tobacco abuse counseling; Z20.822 Contact with and (suspected) exposure to COVID-19; Z86.73 Personal history of transient ischemic attack (TIA), and cerebral infarction without residual deficits; Z86.711 Personal history of pulmonary embolism; Z88.8 Allergy status to other drugs, medicaments and biological substances; Z79.51 Long term (current) use of inhaled steroids; Z79.84 Long term (current) use of oral hypoglycemic drugs; Z79.899 Other long term (current) drug therapy
CPT/HCPCS: 36415; 70450; 71045; 71275; 74177; 80048; 80053; 80307; 81001; 82140; 82803; 82947; 83605; 83735; 83880; 84484; 85025; 85379; 87040; 87086; 87088; 87186; 87635; 93005; 93306; 94640; 94660; 99285; J0610; J0696; J1940; Q9957; Q9967

== ENCOUNTER 2022-06-04 10:44 | Outpatient (REF) | payer MEDICARE, MEDICAID, SELFPAY ==
[2022-06-04 11:48] LABS: MANUAL DIFF FLAG NO
[2022-06-04 12:00] LABS: Basophils Absolute Auto 0.1 X10*3/uL (0.0-0.2); Basophils Percent Auto 0.9 % (0-2); Eosinophils Absolute Auto 0.1 X10*3/uL (0.0-0.4); Eosinophils Percent Auto 2.1 % (0-4); Hematocrit 30.5 % (42.0-52.0); Hemoglobin 9.3 g/dl (14.0-18.0); Imm Gran Abs Auto 0.03 X10*3/uL (0.00-0.03); Imm Gran Pct Auto 0.5 % (0.0-0.4); Lymphocytes Absolute Auto 0.9 X10*3/uL (1.2-4.9); Lymphocytes Percent Auto 13.1 % (20-40); Mean Corpuscular HGB Conc 30.5 g/dl (31.0-36.0); Mean Platelet Volume 9.9 fL (9.4-12.4); Monocytes Percent Auto 15.2 % (2-11); Neutrophils Absolute Auto 4.6 x10*3/uL (2.0-8.3); Neutrophils Percent Auto 68.2 % (45-73); Platelet Count 141 X10*3/uL (160-400); Red Blood Count 3.72 X10*6/uL (4.60-5.80); Red Cell Distribution Width 17.4 % (11.0-16.0); White Blood Count 6.7 X10*3/uL (4.8-10.8)
[2022-06-04 12:25] LABS: Estimated Average Glucose 123 mg/dL; Hemoglobin A1c % 5.9 %
[2022-06-04 13:09] LABS: Digoxin 1.2 ng/mL (0.8-2.0)
[2022-06-04 13:15] LABS: Alanine Aminotransferase < 6 U/L (0-40); Albumin Level 3.6 g/dL (3.5-5.0); Alkaline Phosphatase 49 U/L (39-117); Anion Gap 15 (12-20); Aspartate Amino Transferase 16 U/L (5-37); Bilirubin Total 1.1 mg/dL (0.0-1.0); Blood Urea Nitrogen 20 mg/dL (9-16); Calcium 8.9 mg/dL (8.4-10.2); Carbon Dioxide 26 mmol/L (22-29); Chloride 97 mmol/L (96-108); Estimated Glomerular Filt Rate > 60; Glucose Random 104 mg/dL (60-115); Magnesium 1.3 mg/dL (1.6-2.6); Sodium 133 mmol/L (135-145); Total Protein 7.6 g/dL (6.5-8.0)
== END 2022-06-04 10:45 | disposition home or self-care (01) ==
LOC: HO.LAB 10:44
PROVIDERS: Nurse Practitioner Family; Absent Provider Physician Assistant; PCP Internal Medicine; Visit Provider Internal Medicine
DX: E11.65 Type 2 diabetes mellitus with hyperglycemia (principal); E83.42 Hypomagnesemia; I50.32 Chronic diastolic (congestive) heart failure; J43.1 Panlobular emphysema; J96.91 Respiratory failure, unspecified with hypoxia; J96.92 Respiratory failure, unspecified with hypercapnia; Z72.0 Tobacco use; Z86.711 Personal history of pulmonary embolism; Z79.899 Other long term (current) drug therapy
CPT/HCPCS: 36415; 80053; 80162; 83036; 83735; 85025; 99212